=== PATIENT | female | born 1960 | race Two or more races ===

== ENCOUNTER 2018-02-09 14:08 | Inpatient (IN) | payer OTHER ==
[~2018-02-09] VITALS: Ht 162.6 cm; Wt 85.7 kg
--- NOTE | 2018-02-09 14:20 | NUR ---
AAOX3, BIB [facility]IVATE AM[facility]. PLACED ON THE MONITOR. SKIN IS WARM AND DRY. RESP IS EVEN AND UNLABORED WITH NAD NOTED. AWAITING MD FOR EVAL.
--- NOTE | 2018-02-09 14:48 | NUR ---
CALLED [facility] AND DR RENETTA CORREA WAS PAGED
[2018-02-09 14:56] LABS: BASOPHILS % (AUTO) 0.5 % (0.0-2.0); EOSINOPHILS % (AUTO) 2.8 % (0.0-6.0); HEMATOCRIT 38 % (33-45); HEMOGLOBIN 12.2 g/dL (11.5-14.8); LYMPHOCYTES # (AUTO) 2.3 /CMM (0.8-4.8); LYMPHOCYTES % (AUTO) 31.2 % (20.0-44.0); MEAN CORPUSCULAR HGB CONC 33 g/dl (31.0-36.0); MEAN CORPUSCULAR VOLUME 116 fL (82-100); MONOCYTES # (AUTO) 0.6 /CMM (0.1-1.30); MONOCYTES % (AUTO) 7.4 % (2.0-12.0); NEUTROPHILS # (AUTO) 4.4 /CMM (1.8-8.9); NEUTROPHILS % (AUTO) 58.1 % (43.0-81.0); PLATELET COUNT (AUTO) 322 /CMM (150-450); RDW COEFFICIENT OF VARIATION 14.5 (11.5-15.0); RED BLOOD CELL COUNT(AUTO) 3.24 MIL/uL (4.0-5.2); WHITE BLOOD COUNT (AUTO) 7.5 K/uL (4.3-11.0)
[2018-02-09] MEDS ORDERED: IV NS 0.9% 1,000 ML BAG IV ONE (15:00)
[2018-02-09 15:11] LABS: CALCIUM, SERUM 10.4 mg/dL (8.5-10.1); POTASSIUM 4.3 mmol/L (3.5-5.1)
[2018-02-09 15:12] LABS: CREATININE 7.9 mg/dL (0.6-1.3)
[2018-02-09] MEDS ORDERED: TRAM50TA2 PO (15:51)
[2018-02-09] MEDS ORDERED: FURO-144 PO (15:51)
[2018-02-09] MEDS ORDERED: OXYB10TA PO (15:51)
[2018-02-09] MEDS ORDERED: FOLI0.4T2 PO (15:51)
[2018-02-09] MEDS ORDERED: COMPLERA PO (15:51)
[2018-02-09] MEDS ORDERED: MULT-1094 PO (15:51)
[2018-02-09] MEDS ORDERED: ACET325T53 PO (15:51)
[2018-02-09] MEDS ORDERED: LISI10TA5 PO (15:51)
[2018-02-09] MEDS ORDERED: ALBU2.5V38 IH (15:51)
[2018-02-09] MEDS ORDERED: FLUC200T8 PO (15:51)
[2018-02-09] MEDS ORDERED: FAMO20TA8 PO (15:51)
[2018-02-09] MEDS ORDERED: ONDA4TAB5 PO (15:51)
[2018-02-09] MEDS ORDERED: ASPI-1152 PO (15:51)
[2018-02-09] MEDS ORDERED: METO50TA16 PO (15:51)
[2018-02-09] MEDS ORDERED: IPRA0.2S49 IH (15:51)
[2018-02-09] MEDS ORDERED: GABA-532 PO (15:51)
[2018-02-09 16:17] LABS: APPEARANCE,URINE CLOUDY (CLEAR); BILIRUBIN,URINE NEGATIVE (NEGATIVE); BLOOD, URINE 3+ Ery/uL (NEGATIVE); COLOR,URINE YELLOW (YELLOW); KETONES,URINE NEGATIVE (NEGATIVE); LEUKOCYTE ESTERASE ,URINE 2+ (NEGATIVE); NITRITE, URINE NEGATIVE (NEGATIVE); PROTEIN,URINE 2+ mg/dl (NEGATIVE); UGLUCOSE 1+ mg/dL (NEGATIVE); UROBILINOGEN,URINE 0.2 EU/dL (0.2)
[2018-02-09 16:20] LABS: BACTERIA,URINE 1+ /HPF (None Seen); SQUAMOUS EPITHELIAL CELL,UR Few /HPF (None Seen); WBC,URINE TOO NUMEROUS TO COUN /HPF (0-3); YEAST,URINE Rare /HPF (None Seen)
[2018-02-09] MEDS ORDERED: CEFTRIAXONE 1 G in IV D5W 50 ML IV ONE (17:00)
--- NOTE | 2018-02-09 17:10 | NUR ---
16FR LALA CATH INSERTED, TOLERATED WELL. IMMEDIATE DRAINAGE OF PURULENT YELLOW URINE TO GRAVITY.
--- NOTE | 2018-02-09 17:31 | NUR ---
CALLED NURSING TELEPHONE OPERATOR AND REQUESTED A MED SURG BED FOR THIS PT.
--- NOTE | 2018-02-09 18:12 | NUR ---
PT IS ASSIGNED TO MED SURG RM#: 306-1, DX: ACUTE RENAL FAILURE, AND ACCEPTING MD: DR SANCHEZ
--- NOTE | 2018-02-09 18:30 | NUR ---
Report given to NABEEL Anderson for [facility] MedSur 306-1
[2018-02-09] MEDS ORDERED: ONDANSETRON HCL/PF 4 MG/2 ML VIAL IVP PRN (19:00)
[2018-02-09] MEDS ORDERED: Z GUARD REMEDY 2 OZ OINT TP PRN (19:00)
[2018-02-09] MEDS ORDERED: IPRATROPIUM NEB FS 0.5 MG/2.5 ML AMPUL.NEB IH PRN (19:00)
[2018-02-09] MEDS ORDERED: TRAMADOL HCL 50 MG TABLET PO PRN (19:00)
[2018-02-09] MEDS ORDERED: ZOLPIDEM TARTRATE 5 MG TABLET PO PRN (19:00)
[2018-02-09] MEDS ORDERED: ACETAMINOPHEN 325 MG TABLET PO PRN ×2 (19:00)
--- NOTE | 2018-02-09 19:25 | NUR ---
RECEIVED PATIENT FROM ER FOR DX ACUTE RENAL FAILURE. AO X 2, ABLE TO MAKE NEEDS KNOWN. NO ACUTE DISTRESS NOTED. DENIES ANY PAIN AT THIS TIME. IV SITE PATENT, INTACT; FLUSHED. LALA CATH PATENT, INTACT; DRAINING CLOUDY URINE. SAFETY REMINDERS GIVEN. ON LOW BED WITH BILATERAL UPPER SIDE RAILS UP. CALL LEONARDO WITHIN EASY REACH. WILL CONTINUE TO MONITOR.
[2018-02-09 19:30] VITALS: BP 108/65
[2018-02-09] MEDS: GABAPENTIN 100 MG CAPSULE PO SCH (19:52)
[2018-02-09] MEDS: ASPIRIN EC 81 MG TABLET.DR PO SCH (19:52)
[2018-02-09] MEDS: FLUCONAZOLE (100 MG) 100 MG TABLET PO SCH (19:52)
[2018-02-09] MEDS: FAMOTIDINE (20 MG) 20 MG TABLET PO SCH (19:53)
[2018-02-09] MEDS: OXYBUTYNIN CHLORIDE 5 MG TABLET PO SCH (19:53)
[2018-02-09 21:00] VITALS: BP 108/65
[2018-02-09] MEDS: METOPROLOL TARTRATE 50 MG TABLET PO SCH (21:02)
[2018-02-09] MEDS: IV 1/2NS 1000 ML 1,000 ML IV PRN (21:04)
[2018-02-10 06:18] LABS: BASOPHILS % (AUTO) 0.4 % (0.0-2.0); EOSINOPHILS % (AUTO) 2.9 % (0.0-6.0); HEMATOCRIT 32 % (33-45); HEMOGLOBIN 10.3 g/dL (11.5-14.8); LYMPHOCYTES # (AUTO) 1.9 /CMM (0.8-4.8); LYMPHOCYTES % (AUTO) 34.2 % (20.0-44.0); MEAN CORPUSCULAR HGB CONC 33 g/dl (31.0-36.0); MEAN CORPUSCULAR VOLUME 115 fL (82-100); MONOCYTES # (AUTO) 0.4 /CMM (0.1-1.30); MONOCYTES % (AUTO) 6.6 % (2.0-12.0); NEUTROPHILS # (AUTO) 3.2 /CMM (1.8-8.9); NEUTROPHILS % (AUTO) 55.9 % (43.0-81.0); PLATELET COUNT (AUTO) 282 /CMM (150-450); RDW COEFFICIENT OF VARIATION 14.2 (11.5-15.0); RED BLOOD CELL COUNT(AUTO) 2.74 MIL/uL (4.0-5.2); WHITE BLOOD COUNT (AUTO) 5.7 K/uL (4.3-11.0)
[2018-02-10 06:21] LABS: ALBUMIN 2.5 g/dL (3.4-5.0); BILIRUBIN,TOTAL 0.3 mg/dL (0.2-1.0); CALCIUM, SERUM 9.5 mg/dL (8.5-10.1); CREATININE 7.3 mg/dL (0.6-1.3); PHOSPHORUS 4.5 mg/dL (2.5-4.9); POTASSIUM 3.8 mmol/L (3.5-5.1); TOTAL PROTEIN, SERUM 6.4 g/dL (6.4-8.2)
[2018-02-10 06:29] LABS: THYROID STIMULATING HORMONE 2.915 uIU/mL (0.358-3.74)
--- NOTE | 2018-02-10 06:30 | NUR ---
PATIENT ASLEEP, EASILY AROUSABLE. RESPIRATIONS EVEN. NO SIGNS OF PAIN NOTED. DUE MEDS GIVEN WITH NO ASE NOTED. NEEDS ATTENDED. KEPT CLEAN, DRY, AND COMFORTABLE. SAFETY PRECAUTIONS AND COMFORT MEASURES IN PLACE. WILL GIVE REPORT TO DAY SHIFT FOR CONTINUITY OF CARE.
--- NOTE | 2018-02-10 07:15 | NUR ---
RN NOTES PATIENT A/OX1, VERBALLY RESPONSIVE, BREATHING EVEN AND UNLABORED, NO SOB NOTED, IVF INFUSING AND TOLERATING WELL, PATIENT WITH NO S/SX OF PAIN OR DISCOMFORT NOTED, KEPT PATIENT COMFORTABLE, NEEDS ATTENDED AND MET, CALL LIGHT WITHIN REACH, WILL CONTINUE TO MONITOR.
[2018-02-10 08:00] VITALS: BP 103/74
[2018-02-10] MEDS: GABAPENTIN 100 MG CAPSULE PO SCH ×3 (08:56→16:18)
[2018-02-10] MEDS: FOLIC ACID 1 MG TABLET PO SCH (09:00)
[2018-02-10] MEDS: ASPIRIN EC 81 MG TABLET.DR PO SCH (09:00)
[2018-02-10] MEDS: FAMOTIDINE (20 MG) 20 MG TABLET PO SCH (09:00)
[2018-02-10] MEDS: FLUCONAZOLE (100 MG) 100 MG TABLET PO SCH (09:00)
[2018-02-10] MEDS: METOPROLOL TARTRATE 50 MG TABLET PO SCH (09:00)
[2018-02-10] MEDS: MULTIVIT, IRON, MIN NO. 8, FA 1 TAB PO SCH (09:00)
[2018-02-10] MEDS: OXYBUTYNIN CHLORIDE 5 MG TABLET PO SCH (09:00)
--- NOTE | 2018-02-10 10:26 | NUR ---
WOUND CARE CONSULT: PT PRESENTS WITH STAGE 3 ULCER TO SACRUM WITH SURROUNDING SCARRING, LEFT LATERAL ANKLE SCAR AND CALLUSES TO PLANTAR FEET, PRESENT ON ADMISSION. RECOMMENDATIONS MADE FOR WOUND CARE AND SKIN PROTECTION. DISCUSSED WITH NURSING STAFF. PT TO BE PLACED ON NINO ISOFLEX LOW AIRLOSS BED. WILL SEE PRN. ETIENNE IN AGREEMENT WITH PLAN OF CARE. RECOMMEND SURGICAL CONSULT. Addendum: 02/10/18 at 1027 by BRUNO MCKAY WNDNU Amended: Links added.
[2018-02-10] MEDS ORDERED: HYDROGEL DRESSING 90 GM TUBE TP PRN (10:30)
[2018-02-10] MEDS: IV 1/2NS 1000 ML 1,000 ML IV PRN (11:51)
[2018-02-10] MEDS: HYDROGEL DRESSING 90 GM TUBE TP SCH (13:29)
--- NOTE | 2018-02-10 14:00 | NUR ---
RN NOTES WOUND TREATMENT RENDERED, PERICARE PROVIDED. SKIN CARE DONE. TURNED AND REPOSITIONED EVERY 2 HOURS. BLE OFFLOADED. CALL LIGHT WITHIN REACH, WILL CONTINUE TO MONITOR.
[2018-02-10 16:00] VITALS: BP 140/78
[2018-02-10] MEDS: CEFTRIAXONE 1 G in IV D5W 50 ML IV SCH (16:18)
--- NOTE | 2018-02-10 18:32 | NUR ---
RN NOTES PATIENT A/OX1, CONFUSED, NO SIGNIFICANT CHANGE THIS SHIFT. ON IVF INFUSING AND TOLERATING WELL. TURNED AND REPOSITIONED EVERY 2 HOURS. SKIN CARE RENDERED. NEEDS ATTENDED AND MET, CALL LIGHT WITHIN REACH, WILL ENDORSE TO FLANGE TURNER FOR L[facility]ON.
[2018-02-10 20:00] VITALS: BP 111/65
--- NOTE | 2018-02-10 20:31 | NUR ---
RN OPENING NOTES RECEIVED PT IN BED, SLEEPING, RESPONSIVE TO LIGHT TOUCH AND NAME CALL. BREATHING EVEN AND UNLABORED ON RA. NO DISTRESS OR DISCOMFORT NOTED AT THE TIME. IV SITE ON R HAND PATENT AND FLUSHING, INFUSING 75ML/HR OF 1/2 NS, WILL CONTINUE TO MONITOR. BED IN LOWEST LOCKED POSITION, CALL LIGHT WITHIN REACH AT ALL TIMES
[2018-02-11] MEDS: IV 1/2NS 1000 ML 1,000 ML IV PRN ×2 (03:02→17:02)
--- NOTE | 2018-02-11 06:30 | NUR ---
PATIENT ASLEEP, EASILY AROUSABLE. RESPIRATIONS EVEN. NO SIGNS OF PAIN NOTED. IVF INFUSING ORDERED. NEEDS ATTENDED. KEPT CLEAN, DRY, AND COMFORTABLE. TURNED AND REPOSITIONED Q 2 HOURS. SAFETY PRECAUTIONS AND COMFORT MEASURES IN PLACE. WILL GIVE REPORT TO DAY SHIFT FOR CONTINUITY OF CARE.
--- NOTE | 2018-02-11 07:15 | NUR ---
MS RN OPENING NOTES RECEIVED PT IN BED, AWAKE A/OX1. BREATHING EVEN AND UNLABORED ON RA. NO DISTRESS NO S/S OF PAIN NOTED AT THIS TIME. IV SITE ON R HAND PATENT/INTACT, INFUSING 75ML/HR 1/2 NS. SAFETY PRECAUTIONS IN PLACE, CALL LIGHT WITHIN REACH . WILL CONTINUE TO MONITOR.
[2018-02-11 07:16] LABS: BASOPHILS % (AUTO) 0.7 % (0.0-2.0); EOSINOPHILS % (AUTO) 3.3 % (0.0-6.0); HEMATOCRIT 31 % (33-45); HEMOGLOBIN 10.5 g/dL (11.5-14.8); LYMPHOCYTES # (AUTO) 1.9 /CMM (0.8-4.8); LYMPHOCYTES % (AUTO) 40.1 % (20.0-44.0); MEAN CORPUSCULAR HGB CONC 34 g/dl (31.0-36.0); MEAN CORPUSCULAR VOLUME 117 fL (82-100); MONOCYTES # (AUTO) 0.3 /CMM (0.1-1.30); MONOCYTES % (AUTO) 6.6 % (2.0-12.0); NEUTROPHILS # (AUTO) 2.3 /CMM (1.8-8.9); NEUTROPHILS % (AUTO) 49.3 % (43.0-81.0); PLATELET COUNT (AUTO) 237 /CMM (150-450); RED BLOOD CELL COUNT(AUTO) 2.63 MIL/uL (4.0-5.2); WHITE BLOOD COUNT (AUTO) 4.8 K/uL (4.3-11.0)
[2018-02-11 07:24] LABS: ALBUMIN 2.5 g/dL (3.4-5.0); BILIRUBIN,TOTAL 0.3 mg/dL (0.2-1.0); CREATININE 6.5 mg/dL (0.6-1.3); MAGNESIUM 1.9 mg/dL (1.8-2.4); PHOSPHORUS 4.4 mg/dL (2.5-4.9); POTASSIUM 3.9 mmol/L (3.5-5.1); TOTAL PROTEIN, SERUM 6.3 g/dL (6.4-8.2)
[2018-02-11 07:31] LABS: CALCIUM, SERUM 9.4 mg/dL (8.5-10.1)
[2018-02-11 08:00] VITALS: BP 104/67
[2018-02-11] MEDS: GABAPENTIN 100 MG CAPSULE PO SCH ×3 (08:44→16:55)
[2018-02-11] MEDS: MULTIVIT, IRON, MIN NO. 8, FA 1 TAB PO SCH (08:44)
[2018-02-11] MEDS: FOLIC ACID 1 MG TABLET PO SCH (08:44)
[2018-02-11] MEDS: FLUCONAZOLE (100 MG) 100 MG TABLET PO SCH (08:44)
[2018-02-11] MEDS: ASPIRIN EC 81 MG TABLET.DR PO SCH (08:44)
[2018-02-11] MEDS: METOPROLOL TARTRATE 50 MG TABLET PO SCH (08:45)
[2018-02-11] MEDS: FAMOTIDINE (20 MG) 20 MG TABLET PO SCH (08:45)
[2018-02-11] MEDS: OXYBUTYNIN CHLORIDE 5 MG TABLET PO SCH (08:49)
[2018-02-11] MEDS: HYDROGEL DRESSING 90 GM TUBE TP SCH (09:00)
[2018-02-11] MEDS ORDERED: FLUCONAZOLE IN NS 100 MG in PREMIX 1 EA IV SCH ×2 (12:00)
[2018-02-11 16:00] VITALS: BP 134/80
[2018-02-11] MEDS: LACTOBACILLUS RHAMNOSUS GG 1 EACH CAP.SPRINK PO SCH (16:55)
[2018-02-11] MEDS: CEFTRIAXONE 1 G in IV D5W 50 ML IV SCH (16:55)
--- NOTE | 2018-02-11 18:52 | NUR ---
MS RN CLOSING NOTES PT IN BED, AWAKE A/OX1 CONFUSED, RESPONSIVE TO LIGHT TOUCH AND NAME. BREATHING EVEN AND UNLABORED ON RA. NO DISTRESS OR DISCOMFORT NOTED AT THE TIME. IV SITE ON R HAND REMOVED DUE TO LEAKING, LFA #22 INFUSING 75ML/HR OF 1/[address] WITH OUTPUT 1100. BED IN LOWEST LOCKED POSITION, CALL LIGHT WITHIN REACH. ALL NEEDS ATTENDED, MEDS ARE GIVEN. WILL ENDORSE TO NEXT SHIFT FOR [facility].
--- NOTE | 2018-02-11 19:20 | NUR ---
MS RN OPENING NOTES RECEIVED PT IN BED, AWAKE A/OX1, FORGETFUL/CONFUSED. BREATHING EVEN AND UNLABORED ON RA. NO DISTRESS NO S/S OF PAIN NOTED AT THIS TIME. IV SITE ON LFA, G # 22, PATENT/INTACT, INFUSING 75ML/HR 1/[address], DRAINING WITH CLEAR YELLOW COLOR URINE WITH WHITE SEDIMENTS. WILL ENCOURAGE PO INTAKE TOLERATED. BED IN LOW LOCKED POSITION, BED ALARM ON. SAFETY PRECAUTIONS IN PLACE, CALL LIGHT WITHIN REACH . WILL CONTINUE TO MONITOR.
[2018-02-11 20:01] VITALS: BP 124/53
[2018-02-11 20:12] VITALS: BP 124/53
--- NOTE | 2018-02-11 22:30 | NUR ---
MS RN NOTE PATIENT WAS ASSISTED WITH FEEDING, HAD SNACK & TOLERATED WELL. WILL MONITOR CLOSELY.
--- NOTE | 2018-02-12 01:01 | NUR ---
PRN TYLENOL GIVEN PATIENT NOTED WITH FACIAL GRIMACING DURING ADL CARE & ALSO VERBALIZED THAT HER TUMMY HURTS. UNABLE TO SCALE THE PAIN LEVEL. PRN TYLENOL GIVEN ORDERED. WILL REASSESS FOR EFFECTIVENESS.
--- NOTE | 2018-02-12 02:30 | NUR ---
MS RN NOTE PATIENT NOTED WITH LFA IV SITE LEAKING & REDNESS AROUND THE IV SITE. IV CATH REMOVED, PRESSURE DRESSING APPLIED. NEW IV CATH INSERTED TO RAC G # 22 WITH GOOD BLOOD RETURN. PROCEDURE TOLERATED WELL BY THE PATIENT. WILL CONTINUE TO MONITOR.
--- NOTE | 2018-02-12 06:34 | NUR ---
MS RN CLOSING NOTES PATIENT SLEPT INTERMITTENTLY AT NIGHT, AWAKE, A/OX1, FORGETFUL/CONFUSED. BREATHING EVEN AND UNLABORED ON RA. NO DISTRESS NO S/S OF PAIN NOTED AT THIS TIME. IV SITE ON RAC, G # 22, PATENT/INTACT, INFUSING 75ML/HR 1/[address], DRAINING WITH CLEAR YELLOW COLOR URINE WITH WHITE SEDIMENTS, TOTAL OUT PUT 810ML. ALL NEEDS MET. KEPT CLEAN & DRY. BED IN LOW LOCKED POSITION, BED ALARM ON. SAFETY PRECAUTIONS IN PLACE, CALL LIGHT WITHIN REACH . WILL ENDORSE TO AM RN.
--- NOTE | 2018-02-12 07:20 | NUR ---
MS RN NOTES PATIENT IN LYING IN BED , HOB ELEVATED, EYES CLOSED EASILY AWAKEN, RESPOND TO VERBAL AND TACTILE STIMULI. NO ACUTE DISTRESS NOTED, BREATHING UNLABORED. NO FACIAL GRIMACING NOTED. SAFETY MEASURES IN PLACE. WILL CONTINUE TO MONITOR ACCORDINGLY. CALL LIGHT WITHIN REACH.
[2018-02-12 08:00] VITALS: BP 112/77
[2018-02-12] MEDS: LACTOBACILLUS RHAMNOSUS GG 1 EACH CAP.SPRINK PO SCH ×2 (08:55→16:35)
[2018-02-12] MEDS: MULTIVIT, IRON, MIN NO. 8, FA 1 TAB PO SCH (08:55)
[2018-02-12] MEDS: ASPIRIN EC 81 MG TABLET.DR PO SCH (08:55)
[2018-02-12] MEDS: FOLIC ACID 1 MG TABLET PO SCH (08:55)
[2018-02-12] MEDS: GABAPENTIN 100 MG CAPSULE PO SCH ×3 (08:55→16:35)
[2018-02-12] MEDS: OXYBUTYNIN CHLORIDE 5 MG TABLET PO SCH (08:55)
[2018-02-12] MEDS: FAMOTIDINE (20 MG) 20 MG TABLET PO SCH (08:55)
[2018-02-12] MEDS: METOPROLOL TARTRATE 50 MG TABLET PO SCH (08:56)
[2018-02-12] MEDS: HYDROGEL DRESSING 90 GM TUBE TP SCH (08:57)
[2018-02-12 10:35] LABS: CALCIUM, SERUM 9.2 mg/dL (8.5-10.1)
[2018-02-12] MEDS: FLUCONAZOLE (100 MG) 100 MG TABLET PO SCH (12:34)
[2018-02-12] MEDS: SODIUM BICARBONATE 650 MG TABLET PO SCH ×2 (12:36→16:35)
[2018-02-12] MEDS: IV 1/2NS 1000 ML 1,000 ML IV PRN (14:44)
[2018-02-12 15:09] LABS: PTH, INTACT 8 pg/mL (15-65)
[2018-02-12 16:00] VITALS: BP 130/82
[2018-02-12] MEDS: CEFTRIAXONE 1 G in IV D5W 50 ML IV SCH (16:35)
--- NOTE | 2018-02-12 18:49 | NUR ---
MS RN NOTES PATIENT IN LYING IN BED , HOB ELEVATED, AWAKE.VERBALLY RESPONSIVE. NO ACUTE DISTRESS NOTED, BREATHING UNLABORED. DENIED ANY PAIN. SAFETY MEASURES IN PLACE. LALA CATHETER INTACT, DRAINING WELL. DUE MEDICATIONS GIVEN, NO ASE NOTED. NEEDS ATTENDED AND ANTICIPATED. WILL CONTINUE TO MONITOR ACCORDINGLY. WILL ENDORSE TO NIGHT NURSE FOR CONTINUITY OF CARE.
--- NOTE | 2018-02-12 19:15 | NUR ---
MS/RN NOTES RECEIVED PT. LYING IN BED. PT. IS AWAKE, ALERT AND ORIENTED TO SELF. BREATHING EVEN AND UNLABORED ON ROOM AIR. NO SOB, RESPIRATORY DISTRESS OR COMPLAINTS OF PAIN NOTED AT THIS TIME. PT. WITH RIGHT AC 22 GAUGE PERIPHERAL IV PRESENT, PATENT AND INTACT ADMINISTERING TO PT. 1/2 NS @ 75 ML/HR. PT. WITH LALA CATHETER PRESENT, PATENT AND INTACT DRAINING CLEAR YELLOW URINE. BED LOCKED AND IN LOWEST POSITION, SIDE RAILS UP X3, BED ALARM ON, CALL LIGHT WITHIN REACH, WILL CONTINUE TO MONITOR.
[2018-02-12 20:00] VITALS: BP 133/86
[2018-02-13] MEDS: IV 1/2NS 1000 ML 1,000 ML IV PRN (05:06)
--- NOTE | 2018-02-13 06:30 | NUR ---
MS/RN NOTES PT. IS LYING IN BED RESTING. BREATHING EVEN AND UNLABORED ON ROOM AIR. NO SOB, RESPIRATORY DISTRESS OR COMPLAINTS OF PAIN NOTED AT THIS TIME AND THROUGHOUT SHIFT. PT. WITH RIGHT AC 22 GAUGE PERIPHERAL IV PRESENT, PATENT AND INTACT ADMINISTERING TO PT. 1/2 NS @ 75 ML/HR. PT. WITH LALA CATHETER PRESENT, PATENT AND INTACT EMPTIED 1000 ML YELLOW URINE. ALL PT. NEEDS MET. PT. OFFLOADED, TURNED AND REPOSITIONED Q2H AND NEEDED. BED LOCKED AND IN LOWEST POSITION, SIDE RAILS UP X3, BED ALARM ON, CALL LIGHT WITHIN REACH, WILL ENDORSE TO DAYSHIFT NURSE FOR CONTINUITY OF CARE.
--- NOTE | 2018-02-13 07:54 | NUR ---
MS RN NOTES PATIENT RECEIVED RESTING INSIDE ROOM. AWAKE, ALERT AND ORIENTED TO SELF. PATIENT NOTED WITH CONFUSION. BREATHING EVEN AND UNLABORED. NO SOB OR ACUTE DISTRESS. PATIENT DENIES ANY PAIN OR DISCOMFORT. NO CHANGES IN LOC NOTED. REMAINS CALM AND RELAXED AT THIS TIME. LALA CATHETER IN PLACE WITH CLEAR YELLOW URINE OUTPUT NOTED ON DRAINAGE BAG. SAFETY MEASURES IN PLACE. WILL CONTINUE TO MONITOR. PATIENT RE-ORIENTED NEEDED. BED LOCKED AND IN LOW POSITION. BILATERAL UPPER SIDE RAILS UP AND LOCKED. BED ALARM ON. CALL LIGHT WITHIN EASY REACH
[2018-02-13 08:00] VITALS: BP 113/80
[2018-02-13] MEDS: FAMOTIDINE (20 MG) 20 MG TABLET PO SCH (08:33)
[2018-02-13] MEDS: LACTOBACILLUS RHAMNOSUS GG 1 EACH CAP.SPRINK PO SCH (08:33)
[2018-02-13] MEDS: FOLIC ACID 1 MG TABLET PO SCH (08:33)
[2018-02-13 08:34] VITALS: BP 113/80
[2018-02-13] MEDS: GABAPENTIN 100 MG CAPSULE PO SCH ×2 (08:34→12:08)
[2018-02-13] MEDS: OXYBUTYNIN CHLORIDE 5 MG TABLET PO SCH (08:34)
[2018-02-13] MEDS: ASPIRIN EC 81 MG TABLET.DR PO SCH (08:34)
[2018-02-13] MEDS: METOPROLOL TARTRATE 50 MG TABLET PO SCH (08:34)
[2018-02-13] MEDS: MULTIVIT, IRON, MIN NO. 8, FA 1 TAB PO SCH (08:34)
[2018-02-13] MEDS: SODIUM BICARBONATE 650 MG TABLET PO SCH (08:37)
[2018-02-13] MEDS: HYDROGEL DRESSING 90 GM TUBE TP SCH (08:38)
[2018-02-13] MEDS: FLUCONAZOLE (100 MG) 100 MG TABLET PO SCH (12:08)
--- NOTE | 2018-02-13 13:00 | NUR ---
MS RN NOTES PATIENT SEEN AND EXAMINED BY DR. SANCHEZ WITH ORDER TO DISCONTINUE LALA CATHETER. ORDER NOTED AND CARRIED OUT. PATIENT AWARE AND VERBALIZED UNDERSTANDING. LALA CATHETER REMOVED PER PROTOCOL. WILL CONTINUE TO MONITOR
--- NOTE | 2018-02-13 15:24 | NUR ---
MS RN NOTES PATIENT FOR DISCHARGE TODAY. TO DISCHARGE TO [facility]. DISCHARGE TEACHING AND EDUCATION PROVIDED TO PATIENT AND VERBALIZED UNDERSTANDING. PLACED CALL TO [facility] AND SPOKE WITH THOMAS LEES AND GAVE REPORT. ALL BELONGINGS COMPLETE ON DISCHARGE, NO REPORT OF MISSING INVENTORY. PATIENT LEFT UNIT AT 1515 IN STABLE CONDITION. BREATHING EVEN AND UNLABORED. NO SOB OR ACUTE DISTRESS. NO CHANGES IN LOC. PATIENT DENIES ANY PAIN OR DISCOMFORT. MD AWARE OF DISCHARGE.
[2018-02-14 08:07] LABS: *SPE ALBUMIN 2.7 g/dL (2.9-4.4); *SPE ALPHA-1-GLOBULIN 0.3 g/dL (0.0-0.4); *SPE ALPHA-2-GLOBULIN 0.6 g/dL (0.4-1.0); *SPE GLOBULIN, TOTAL 2.7 g/dL (2.2-3.9); *SPE M-SPIKE Not Observed g/dL (Not Observed); *SPEGAMMA GLOBULIN 0.7 g/dL (0.4-1.8)
[2018-02-22] MEDS ORDERED: AMLO10TA4 PO (08:01)
[2018-02-22] MEDS ORDERED: FLUC100T8 PO (08:01)
[2018-02-22] MEDS ORDERED: LACT1CAP72 PO (08:01)
[2018-03-03] MEDS ORDERED: IPRA0.2S9 IH (16:40)
[2018-03-03] MEDS ORDERED: FOLI1TAB16 PO (16:41)
== END 2018-02-13 15:15 | DRG 463 ==
LOC: ER 14:19 → MED 18:26
PROVIDERS: ADMIT Internal Medicine; ATTEND Internal Medicine
DX: N39.0 Urinary tract infection, site not specified (principal); N17.0 Acute kidney failure with tubular necrosis; L89.153 Pressure ulcer of sacral region, stage 3; E87.2 Acidosis; E88.09 Other disorders of plasma-protein metabolism, not elsewhere classified; J44.9 Chronic obstructive pulmonary disease, unspecified; I25.10 Atherosclerotic heart disease of native coronary artery without angina pectoris; D53.9 Nutritional anemia, unspecified; I10 Essential (primary) hypertension; K21.9 Gastro-esophageal reflux disease without esophagitis
CPT/HCPCS: 36415; 76705-TC; 76770-TC; 80048-TC; 80053-TC; 80061-TC; 81000-TC; 82550-TC; 83735-TC; 83970; 84100-TC; 84155; 84165; 84443-TC; 85025-TC; 87081-TC; 87086-TC; A4216; A4606; A6248; G0378; J0696; J1450; J3490; J7030; J7060; Z7610

== ENCOUNTER 2018-04-07 13:25 | Inpatient (IN) | payer OTHER ==
[~2018-04-07] VITALS: Ht 175.3 cm; Wt 83.9 kg
[2018-04-07] VITALS (11 sets, daily range): BP systolic 81–130; BP diastolic 40–100
[~2018-04-07 13:25] MED LIST: ACET325T53 PO; ALBU2.5V38 IH; ASPI-1152 PO; COMPLERA PO; FAMO20TA8 PO; FOLI1TAB16 PO; GABA-532 PO; IPRA0.2S9 IH; METO50TA16 PO; MULT-1094 PO; ONDA4TAB5 PO; OXYB10TA PO; TRAM50TA2 PO
[2018-04-07 14:28] LABS: ALANINE AMINOTRANSFERASE 18 U/L (12-78); ALBUMIN 3.3 g/dL (3.4-5.0); ALKALINE PHOSPHATASE 152 U/L (46-116); ASPARTATE AMINOTRANSFERASE 18 U/L (15-37); BILIRUBIN,DIRECT 0.2 mg/dL (0.0-0.2); BILIRUBIN,TOTAL 0.6 mg/dL (0.2-1.0); CALCIUM, SERUM 10.5 mg/dL (8.5-10.1); CARBON DIOXIDE 15 mmol/L (21-32); CREATININE 5.1 mg/dL (0.6-1.3); GLUCOSE 147 mg/dL (74-106); POTASSIUM 5.9 mmol/L (3.5-5.1); TOTAL PROTEIN, SERUM 8.2 g/dL (6.4-8.2)
--- NOTE | 2018-04-07 14:28 | NUR ---
BIB PRIVATE AMBULANCE FOR MORE ALTERED THAN USUAL X 3 DAYS, FEVER X TODAYRECTAL TYLENOL GIVEN AT 1130 TODAY. PT NON VERBAL, WILL OPEN EYES OCCASSIONALLY, WILL MOAN FOR PAINFUL STIMULI. PLACED ON ALLIED HEALTH TEACHER, ST. PT SEEN & EVAL'D BY DR. MORALES & WILL CONT TO MONITOR.
[2018-04-07] MEDS ORDERED: IV NS 0.9% 1,000 ML BAG IV ONE ×2 (14:30)
[2018-04-07 14:31] LABS: CHLORIDE 139 mmol/L (98-107); SODIUM SERUM 173 mmol/L (136-145); UREA NITROGEN, BLOOD 103 mg/dL (7-18)
[2018-04-07] MEDS ORDERED: NA P133E RC (14:32)
[2018-04-07] MEDS ORDERED: MEGE400O4 PO (14:32)
[2018-04-07] MEDS ORDERED: MAGN400O6 PO (14:32)
[2018-04-07] MEDS ORDERED: MAG30ORA PO (14:32)
[2018-04-07] MEDS ORDERED: POLY17PO4 PO (14:32)
[2018-04-07] MEDS ORDERED: OXYB5TAB11 PO (14:32)
[2018-04-07] MEDS ORDERED: DOCU250C14 PO (14:32)
[2018-04-07] MEDS ORDERED: POTA20TA83 PO (14:32)
--- NOTE | 2018-04-07 14:41 | NUR ---
CALLED NURSING SUP FOR ICU BED
[2018-04-07] MEDS ORDERED: IV NS 0.9% 500 ML BAG IV ONE (15:00)
[2018-04-07 15:02] LABS: BASOPHILS # (AUTO) 0.1 /CMM (0.0-0.2); BASOPHILS % (AUTO) 0.5 % (0.0-2.0); EOSINOPHILS % (AUTO) 0.2 % (0.0-6.0); HEMATOCRIT 48 % (33-45); HEMOGLOBIN 14.9 g/dL (11.5-14.8); LYMPHOCYTES # (AUTO) 4.4 /CMM (0.8-4.8); LYMPHOCYTES % (AUTO) 21.3 % (20.0-44.0); MEAN CORPUSCULAR HGB CONC 31 g/dl (31.0-36.0); MEAN CORPUSCULAR VOLUME 126 fL (82-100); MONOCYTES # (AUTO) 1.3 /CMM (0.1-1.30); MONOCYTES % (AUTO) 6.3 % (2.0-12.0); NEUTROPHILS # (AUTO) 14.8 /CMM (1.8-8.9); NEUTROPHILS % (AUTO) 71.7 % (43.0-81.0); PLATELET COUNT (AUTO) 101 /CMM (150-450); RED BLOOD CELL COUNT(AUTO) 3.83 MIL/uL (4.0-5.2); WHITE BLOOD COUNT (AUTO) 20.6 K/uL (4.3-11.0)
[2018-04-07 15:18] LABS: SERUM AMMONIA 17 umol/L (11-32)
[2018-04-07 15:28] LABS: LYMPHOCYTES % (MANUAL) 24 % (16-48); MONOCYTES % (MANUAL) 8 % (0-11.0); NEUTROPHILS % (MANUAL) 68 (42-76)
--- NOTE | 2018-04-07 15:50 | NUR ---
CALLED [facility] [employer] PHYSICIAN OFFICE SPECIALIST WAS PAGED.
[2018-04-07] MEDS ORDERED: MEROPENEM 1 G in IV NS 0.9% 100 ML IV ONE (16:00)
[2018-04-07] MEDS ORDERED: VANCOMYCIN 1 GM in IV D5W 250 ML IV ONE (16:00)
[2018-04-07] MEDS ORDERED: SODIUM BICARBONATE SYR 50 MEQ/50 ML DISP.SYRIN IV ONE (16:00)
[2018-04-07] MEDS ORDERED: CEFTRIAXONE 2 G in IV D5W 100 ML IV ONE (16:00)
[2018-04-07] MEDS ORDERED: SODIUM BICARBONATE SYR 50 MEQ/50 ML DISP.SYRIN ONE (16:06)
[2018-04-07] MEDS ORDERED: IV D5/0.45 NACL 1,000 ML IV PRN (16:36)
--- NOTE | 2018-04-07 16:46 | NUR ---
PT BACK FROM CT. PT STABLE, NAD NOTED @ THIS TIME. PLACED ON SERGEANT AT ARMS & WILL CONT TO MONITOR. IV ANTIBIOTIC STARTED, PT YUNIEL WELL.
[2018-04-07] MEDS ORDERED: MAG HYDROX/AL HYDROX/SIMETH 30 ML UDC PO PRN (17:00)
[2018-04-07] MEDS ORDERED: Z GUARD REMEDY 2 OZ OINT TP PRN (17:00)
[2018-04-07] MEDS ORDERED: MAGNESIUM HYDROXIDE 30 ML UDC PO PRN (17:00)
[2018-04-07] MEDS ORDERED: IV D5/0.45 NACL 1,000 ML IV ONE (17:00)
[2018-04-07] MEDS ORDERED: ONDANSETRON HCL/PF 4 MG/2 ML VIAL IVP PRN (17:00)
[2018-04-07] MEDS ORDERED: ACETAMINOPHEN 325 MG TABLET PO PRN (17:00)
[2018-04-07] MEDS ORDERED: ZOLPIDEM TARTRATE 5 MG TABLET PO PRN (17:00)
[2018-04-07] MEDS ORDERED: FEE PK DOSING 1 MIN EA MC ONE (17:04)
[2018-04-07 17:32] LABS: APPEARANCE,URINE Clear (CLEAR); BILIRUBIN,URINE SMALL (NEGATIVE); BLOOD, URINE Large Ery/uL (NEGATIVE); COLOR,URINE Yellow (YELLOW); KETONES,URINE Trace (NEGATIVE); LEUKOCYTE ESTERASE ,URINE Trace (NEGATIVE); NITRITE, URINE Negative (NEGATIVE); PH,URINE 5.5 (5.0-8.0); PROTEIN,URINE >=300 mg/dl (NEGATIVE); UGLUCOSE 100 MG/DL mg/dL (NEGATIVE); UROBILINOGEN,URINE 0.2 EU/dL (0.2)
[2018-04-07 17:49] LABS: BACTERIA,URINE Few /HPF (None Seen); RBC,URINE 21-50 /HPF (0-2); SQUAMOUS EPITHELIAL CELL,UR Few /HPF (None Seen)
--- NOTE | 2018-04-07 17:53 | NUR ---
REPORT GIVEN TO NABEEL PARRA @ ICU FOR CONT OF CARE.
[2018-04-07] MEDS ORDERED: VANCOMYCIN 0.75 GM in IV D5W 250 ML IV SCH (18:00)
--- NOTE | 2018-04-07 18:20 | NUR ---
TRADE CLERK RECEIVED PT FROM ER VIA MONITORED GURNEY. PT ADMITTED FOR HYPERNATREMIA AND SEVERE SEPSIS. PT MOANS, UNABLE TO COMMUNICATE FURTHER. NO FAMILY AVAILABLE FOR HISTORY. O2 AT 4L NC WITH SPO2 100%. UNABLE TO START 2ND IV LINE, WILL ORDER FOR PICC.
[2018-04-07 20:35] LABS: CREATININE 4.8 mg/dL (0.6-1.3); POTASSIUM 3.9 mmol/L (3.5-5.1)
[2018-04-07] MEDS: HEPARIN SODIUM, PORCINE 5000 UNITS/1 ML VIAL SQ SCH (21:00)
--- NOTE | 2018-04-07 21:17 | NUR ---
SHREDDING MACHINE KNIFE CHANGER. INITIAL ASSESSMENT, RECEIVED THE PT REST ON THE BED. OPEN EYES, DOES NOT FOLLOW COMMANDS. RESPONDING PAIN AND CALLING NAME. ELIOT LOWER AND UPPER EXTREMITIES FLACCID ELIOT PUPILS EQUAL . OXYGEN 3L VIA NASAL CANNULA. SAT 99%. NO ACUTE DISTRESS NOTED. VEHICLE MAINTENANCE TECHNICIAN SHOWING S TACH. WOUND PICTURE TAKEN AND ATTACHED TO THE CHART. FC PATENT. URINE COLOR IS RED. HOB ELEVATED. RT UPPER ARM MID LINE . IVF D51/2NS 100ML/H.WILL CONTINUE TO MONITOR VITALS.
--- NOTE | 2018-04-07 22:37 | NUR ---
PIEROGI MAKER. HEPARIN 5,000 UNITS 2100 NOT GIVEN. PT PTT IS >170
[2018-04-08] VITALS (66 sets, daily range): BP systolic 62–188; BP diastolic 27–97
--- NOTE | 2018-04-08 04:17 | NUR ---
INTERNATIONAL CONTROLLER.AM CARE, ORAL CARE, BED BATH GIVEN. LINEN CHANGED. REMAINING SAME OXYGEN TOLERATED WELL. SAT 99%NO ACUTE DISTRESS NOTED. TEXTILE ARTIST SHOWING S CARMEN.HOB ELEVATED. PT IS NPO. IV RT UPPER ARM MID LINE. SALINE LOCK.AFEBRILE. FC PATENT. WILL CONTINUE TO MONITOR VITALS.
[2018-04-08 04:49] LABS: BASOPHILS # (AUTO) 0.1 /CMM (0.0-0.2); BASOPHILS % (AUTO) 0.4 % (0.0-2.0); EOSINOPHILS % (AUTO) 1.5 % (0.0-6.0); HEMATOCRIT 38 % (33-45); HEMOGLOBIN 11.8 g/dL (11.5-14.8); LYMPHOCYTES # (AUTO) 2.3 /CMM (0.8-4.8); LYMPHOCYTES % (AUTO) 16.4 % (20.0-44.0); MEAN CORPUSCULAR HGB CONC 31 g/dl (31.0-36.0); MEAN CORPUSCULAR VOLUME 126 fL (82-100); MONOCYTES # (AUTO) 0.6 /CMM (0.1-1.30); MONOCYTES % (AUTO) 4.6 % (2.0-12.0); NEUTROPHILS # (AUTO) 10.7 /CMM (1.8-8.9); NEUTROPHILS % (AUTO) 77.1 % (43.0-81.0); PLATELET COUNT (AUTO) 73 /CMM (150-450); RED BLOOD CELL COUNT(AUTO) 3.02 MIL/uL (4.0-5.2); WHITE BLOOD COUNT (AUTO) 13.8 K/uL (4.3-11.0)
[2018-04-08 05:12] LABS: ALBUMIN 2.4 g/dL (3.4-5.0); BILIRUBIN,TOTAL 0.3 mg/dL (0.2-1.0); CREATININE 4.9 mg/dL (0.6-1.3); MAGNESIUM 2.7 mg/dL (1.8-2.4); POTASSIUM 4.1 mmol/L (3.5-5.1); TOTAL PROTEIN, SERUM 6.4 g/dL (6.4-8.2)
[2018-04-08 05:14] LABS: MONOCYTES % (MANUAL) 2 % (0-11.0)
[2018-04-08 05:15] LABS: EOSINOPHILS % (MANUAL) 1 % (0-4)
[2018-04-08 05:17] LABS: LYMPHOCYTES % (MANUAL) 14 % (16-48); NEUTROPHILS % (MANUAL) 83 (42-76)
--- NOTE | 2018-04-08 06:17 | NUR ---
STILL OPERATOR BRANDY, PT MORE ALTERED THAN BEFORE ABG DONE STAT. WILL CONTINUE TO MONITOR
[2018-04-08] MEDS ORDERED: IV D5/0.45 NACL 1,000 ML IV ONE (06:30)
[2018-04-08 06:38] LABS: ABG BASE EXCESS -13.9 mmol/L; ABG OXYGEN SATURATION 95.8 % (92.0-98.5); ABG PCO2 23.2 mmHg (35.0-45.0); ABG PH 7.288 (7.350-7.450); ABG PO2 88.4 mmHg (75.0-100.0); AaDO2 141.4 mmHg; COHb 0.3 % (0.5-1.5); MetHb 0.6 % (0.0-1.5); O2Hb 94.9 % (94.0-97.0); SITE, ABG Right Radial; VENT MODE, BG Nasal Cannula
--- NOTE | 2018-04-08 06:48 | NUR ---
CNP. G DONE RESULT PELON LEMA MADE AWARE. ORDER ONLY NONREBREATHER . WILL CONTINUE TO MONITOR.
[2018-04-08] MEDS: IV D5/0.45 NACL 1,000 ML IV PRN ×4 (07:20→23:48)
[2018-04-08] MEDS: HYDROCORTISONE SOD SUCCINATE 100 MG/2 ML VIAL IV SCH ×3 (08:07→16:04)
[2018-04-08] MEDS: HEPARIN SODIUM, PORCINE 5000 UNITS/1 ML VIAL SQ SCH ×2 (08:08→21:00)
--- NOTE | 2018-04-08 08:24 | NUR ---
WOUND CARE CONSULT: PT UNSTABLE FOR TURNING/SKIN ASSESSMENT AT THIS TIME. FEET HAVE VERY DUSKY COLOR. RECOMMENDATIONS MADE FOR SKIN PROTECTION AND DISCUSSED WITH NURSING STAFF. FIRST STEP LOW AIRLOSS MATTRESS ORDERED. WILL SEE PT PT CONDITION PERMITS. LALA CATH NOTED. CURRENT RUFINO SCORE IS 11.
[2018-04-08 11:06] LABS: CALCIUM, SERUM 9.2 mg/dL (8.5-10.1); POTASSIUM 4.4 mmol/L (3.5-5.1)
--- NOTE | 2018-04-08 11:25 | NUR ---
RN NOTE 0720: Received patient obtunded, noted with grimace only for deep pain. S/E by Dr. Grimm. MICHAEL midline intact. Pupils PERRLA 4mm. Flaccid all extremities. Gonzalze cath intact, noted with akhil colored urine with sediments. 0840: S/E by Dr. Becerra, reviewed ABG, with order to do repeat ABG at 1200. 0850: hearing aid technician at bedside, said she will call Dr. Grimm for reading. 0930: S/E by Dr. Suárez, obtained consent for HD cath insertion from Nataly, mother. Made MD aware, with consent already. 1000: S/E by Joshua LEMA with order for LP and platelet transfusion before LP, spoke with Nataly mother and agreed. Also ordered for EEG. 1030: Spoke with blood bank and changed the order to Stat for Plt. Spoke with radio and informed them I changed blood order to stat for radiologist trying to do it today. 1120: metallurgical lab technician at bedside.
[2018-04-08 12:41] LABS: ABG BASE EXCESS -14.6 mmol/L; ABG OXYGEN SATURATION 97.4 % (92.0-98.5); ABG PCO2 22.6 mmHg (35.0-45.0); ABG PH 7.277 (7.350-7.450); ABG PO2 126.3 mmHg (75.0-100.0); COHb 0.3 % (0.5-1.5); MetHb 0.6 % (0.0-1.5); O2Hb 96.5 % (94.0-97.0); SITE, ABG Right Brachial; VENT MODE, BG Nasal Cannula
[2018-04-08] MEDS ORDERED: NOREPINEPHRINE 16 MG in IV D5W 500 ML IV PRN ×2 (14:00→14:30)
--- NOTE | 2018-04-08 14:11 | NUR ---
RN NOTE 1300: HD cath placed by Dr. Bedolla to right fem. 1330: Spoke with blood bank, plt still not available. Spoke with Dr. Curry, said plt is low, said its ok to give platelet after procedure, so after HD, will bring patient down for the procedure. 1410: HD ongoing, with episodes of SBP 70's even after albumin given, obtained order for Levo.
[2018-04-08] MEDS ORDERED: ALBUMIN 25% 25 GM in PREMIX 1 EA IV ONE (14:30)
--- NOTE | 2018-04-08 15:22 | NUR ---
RN NOTE Platelet given with HD by HD nurse. BP dropped 80/44, informed Radio, said to inform Neuro. Spoke with Moses LEMA and said do LP tomorrow instead if able to wean off pressors, if not, ok to do Wednesday. Called Dr. Curry and informed him, verbalized understanding.
[2018-04-08] MEDS ORDERED: CEFTRIAXONE 1 G in IV D5W 50 ML IV SCH (16:00)
[2018-04-08] MEDS: LACTOBACILLUS RHAMNOSUS GG 1 EACH CAP.SPRINK PO SCH (16:03)
--- NOTE | 2018-04-08 17:23 | NUR ---
Patient is a resident of [facility] [phone]. Prior to admission, he was chair and bed bound and requires mod-max assist with adl's. Started on hemodialysis today, we will monitor if outpt HD set-up needed prior discharge. Current dc plan is to return to SNF Addendum: 04/08/18 at 1724 by JAZIEL PEREZ RN Amended: Links added.
[2018-04-08] MEDS: CEFEPIME 1 GM in IV D5W 50 ML IV SCH (18:35)
--- NOTE | 2018-04-08 19:00 | NUR ---
ICU/RN RECEIVED PT OBTUNDED,UNRESPONSIVE TO VERBAL AND TACTILE STIM.ON 4LNC SAT.OF 97%.HOB 35 DEGREES.SUCTIONED FOR COPIOUS AMT BLOOD-TINGED SECRETIONS ORALLY,WITH COUGH AND GAG REFLEXES..
--- NOTE | 2018-04-08 21:04 | NUR ---
RT NOTE NT SX PERFORMED WITH NO COMPLICATIONS. NABEEL GILL NOTIFIED AND AWARE.
[2018-04-09] VITALS (48 sets, daily range): BP systolic 54–138; BP diastolic 11–104
[2018-04-09 05:14] LABS: BASOPHILS % (AUTO) 0.2 % (0.0-2.0); HEMATOCRIT 28 % (33-45); HEMOGLOBIN 9.2 g/dL (11.5-14.8); LYMPHOCYTES % (AUTO) 15.4 % (20.0-44.0); MEAN CORPUSCULAR HGB CONC 32 g/dl (31.0-36.0); MEAN CORPUSCULAR VOLUME 118 fL (82-100); MONOCYTES # (AUTO) 0.6 /CMM (0.1-1.30); MONOCYTES % (AUTO) 4.8 % (2.0-12.0); NEUTROPHILS # (AUTO) 10.5 /CMM (1.8-8.9); NEUTROPHILS % (AUTO) 79.6 % (43.0-81.0); PLATELET COUNT (AUTO) 75 /CMM (150-450); WHITE BLOOD COUNT (AUTO) 13.2 K/uL (4.3-11.0)
[2018-04-09 05:29] LABS: ALBUMIN 2.9 g/dL (3.4-5.0); BILIRUBIN,TOTAL 0.4 mg/dL (0.2-1.0); CALCIUM, SERUM 7.8 mg/dL (8.5-10.1); CREATININE 3.2 mg/dL (0.6-1.3); MAGNESIUM 1.8 mg/dL (1.8-2.4); PHOSPHORUS 2.2 mg/dL (2.5-4.9); POTASSIUM 3.4 mmol/L (3.5-5.1); TOTAL PROTEIN, SERUM 6.4 g/dL (6.4-8.2)
--- NOTE | 2018-04-09 06:00 | NUR ---
ICU/RN PT NEEDED FREQUENT SUCTIONING ORAL AND NASOTRACHEALLY FOR COPIOUS AMT OF PINK-TINGED.VITAL SIGNS STABLE.LEVOPHED DC'D AT 0100
[2018-04-09 06:18] LABS: BAND % (MANUAL) 3 % (0.0-5.0); LYMPHOCYTES % (MANUAL) 17 % (16-48); METAMYELOCYTES % 1 % (0-0); MONOCYTES % (MANUAL) 2 % (0-11.0); MYELOCYTES % 1 % (0-0); NEUTROPHILS % (MANUAL) 73 (42-76); REACTIVE LYMPHOCYTES 3 % (0-0)
[2018-04-09] MEDS: IV D5/0.45 NACL 1,000 ML IV PRN (07:12)
--- NOTE | 2018-04-09 07:15 | NUR ---
ICU/RN REPORT AND CARE OF PT GIVEN TO FIDEL English
[2018-04-09] MEDS: POTASSIUM CL. PREMIX PERIPHER. 50 ML IV SCH ×4 (07:51→10:50)
[2018-04-09 08:25] LABS: BILIRUBIN,DIRECT 0.1 mg/dL (0.0-0.2)
[2018-04-09] MEDS ORDERED: VANCOMYCIN 500 MG in IV D5W 100 ML IV PRN (08:30)
[2018-04-09] MEDS: LACTOBACILLUS RHAMNOSUS GG 1 EACH CAP.SPRINK PO SCH ×2 (08:32→17:00)
[2018-04-09] MEDS: HYDROCORTISONE SOD SUCCINATE 100 MG/2 ML VIAL IV SCH ×3 (08:32→17:20)
[2018-04-09] MEDS: HEPARIN SODIUM, PORCINE 5000 UNITS/1 ML VIAL SQ SCH ×2 (08:33→20:49)
--- NOTE | 2018-04-09 09:26 | NUR ---
received pt from night supervisor, lethargic/obtunded, opens eyes at times, responds to pain stimuli, SR, off of levo, NPO, on 4L 02 sat well, lungs partially congested, no edema, f/c low output, having HD right now, v/s stable, no pain, pt turned and repositioned.
[2018-04-09] MEDS: IV NS 0.9% 1,000 ML IV PRN ×2 (10:53→21:15)
[2018-04-09] MEDS ORDERED: K PHOS NEUTRAL 250 MG TABLET PO ONE (11:00)
[2018-04-09] MEDS ORDERED: VANCOMYCIN 1 GM in IV D5W 250 ML IV ONE (14:00)
--- NOTE | 2018-04-09 16:47 | NUR ---
pt is resting in the bed, obtunded, SR, on 4L 02 sat well, v/s stable, no pain, HD done, pt cleaned, changed and repositioned q2hrs.
[2018-04-09] MEDS: CEFEPIME 1 GM in IV D5W 50 ML IV SCH (17:21)
[2018-04-09] MEDS ORDERED: VANCOMYCIN 0.75 GM in IV D5W 250 ML IV SCH (18:00)
--- NOTE | 2018-04-09 19:00 | NUR ---
ICU/RN RECEIVED PT.UNRESPONSIVE TO VERBAL STIMULI,PT.GURGLING,SUCTIONED FOR MODERATE AMT BLOOD-TINGED TO THICK YELLOW SECRETIONS,RESP.RATE PRIOR TO SUCTIONING=40/MIN W/SAT OF 87%.RESP.RATE DOWN TO 28 AND SAT UP TO 97%.HOB AT 35 DEGREES.
[2018-04-10] VITALS (35 sets, daily range): BP systolic 80–136; BP diastolic 49–93
--- NOTE | 2018-04-10 01:14 | NUR ---
ICU/RN N-T. SUCTIONED FOR COPIOUS SECRETIONS.REPOSITIONED TO LT SIDE AFTER.SUCTIONED ORALLY FOR MODERATE WHITE TO PINK-TINGED SECRETIONS,ORAL CARE DONE.
--- NOTE | 2018-04-10 02:10 | NUR ---
ICU/RN. INCONTINENT OF LARGE SOFT YELLOWISH GREEN STOOLX2,COMPLETE BED BATH GIVEN.VOMITED APPROXIMATELY 50ML YELLOW LIQUID MATERIAL POST BATH.CHUX PLACED UNDERNEATH HEAD.
[2018-04-10 04:45] LABS: BASOPHILS % (AUTO) 0.1 % (0.0-2.0); HEMATOCRIT 28 % (33-45); HEMOGLOBIN 9.1 g/dL (11.5-14.8); LYMPHOCYTES # (AUTO) 1.4 /CMM (0.8-4.8); LYMPHOCYTES % (AUTO) 12.9 % (20.0-44.0); MEAN CORPUSCULAR HGB CONC 33 g/dl (31.0-36.0); MEAN CORPUSCULAR VOLUME 116 fL (82-100); MONOCYTES # (AUTO) 0.6 /CMM (0.1-1.30); MONOCYTES % (AUTO) 5.5 % (2.0-12.0); NEUTROPHILS # (AUTO) 8.6 /CMM (1.8-8.9); NEUTROPHILS % (AUTO) 81.5 % (43.0-81.0); PLATELET COUNT (AUTO) 71 /CMM (150-450); RED BLOOD CELL COUNT(AUTO) 2.36 MIL/uL (4.0-5.2); WHITE BLOOD COUNT (AUTO) 10.5 K/uL (4.3-11.0)
[2018-04-10 04:47] LABS: ALBUMIN 2.6 g/dL (3.4-5.0); BILIRUBIN,TOTAL 0.7 mg/dL (0.2-1.0); CALCIUM, SERUM 7.4 mg/dL (8.5-10.1); CREATININE 2.3 mg/dL (0.6-1.3); MAGNESIUM 1.7 mg/dL (1.8-2.4); PHOSPHORUS 3.2 mg/dL (2.5-4.9); POTASSIUM 3.3 mmol/L (3.5-5.1)
[2018-04-10] MEDS: IV NS 0.9% 1,000 ML IV PRN ×2 (05:51→16:52)
[2018-04-10] MEDS ORDERED: VANCOMYCIN 500 MG in IV D5W 100 ML IV PRN (06:00)
--- NOTE | 2018-04-10 06:37 | NUR ---
ICU/RN OPENS EYES ,DOES NOT TRACK,DOES NOT FOLLOW COMMANDS.SUCTIONED FOR MODERATE WHIT-YELLOW SECRETIONS FROM MOUTH.
--- NOTE | 2018-04-10 07:24 | NUR ---
ICU/RN REPORT AND CARE OF PT GIVEN TO PAMELA
--- NOTE | 2018-04-10 07:30 | NUR ---
RN NOTES PATIENT RECEIVED, RESPONSIVE TO PAINFUL STIMULI, NON VERBAL, DOES NOT FOLLOW COMMANDS MAKES INCOMPREHENSIBLE SOUNDS. RESPIRATIONS EVEN AND UNLABORED, IN NO RESPIRATORY DISTRESS. NO SIGNS OR SYMPTOMS OF PAIN NOTED AT THIS TIME. LALA CATHETER DRAINING CLEAR YELLOW URINE. MICHAEL PICC LINE PATENT AND INTACT NO REDNESS OR INFILTRATION NOTED. RIGHT FEMORAL CATHETER IN PLACE PATENT AND INTACT NO REDNESS OR INFILTRATION NOTED. KEPT CLEAN DRY AND COMFORTABLE CALL LIGHT WITHIN EASY REACH, WILL CONTINUE TO MONITOR
[2018-04-10] MEDS: LACTOBACILLUS RHAMNOSUS GG 1 EACH CAP.SPRINK PO SCH ×2 (09:00→16:57)
[2018-04-10] MEDS ORDERED: POTASSIUM PHOSPHATE MM 15 MMOL in IV D5W 250 ML IV SCH (09:00)
[2018-04-10 09:07] LABS: ABG BASE EXCESS -3.6 mmol/L; ABG OXYGEN SATURATION 96.8 % (92.0-98.5); ABG PCO2 27.7 mmHg (35.0-45.0); ABG PH 7.461 (7.350-7.450); ABG PO2 97.6 mmHg (75.0-100.0); COHb 0.3 % (0.5-1.5); MetHb 0.5 % (0.0-1.5); SITE, ABG Left Radial; VENT MODE, BG 3L NC
[2018-04-10] MEDS: POTASSIUM CL. PREMIX PERIPHER. 50 ML IV SCH ×4 (09:08→12:44)
[2018-04-10] MEDS: Magnesium 1GM/D5W 100ML PREMIX 100 ML IV SCH ×2 (09:08→10:13)
[2018-04-10] MEDS: HYDROCORTISONE SOD SUCCINATE 100 MG/2 ML VIAL IV SCH ×3 (09:09→16:51)
[2018-04-10] MEDS: HEPARIN SODIUM, PORCINE 5000 UNITS/1 ML VIAL SQ SCH ×2 (09:22→20:51)
[2018-04-10] MEDS ORDERED: POTASSIUM PHOSPHATE MM 7.5 MMOL in IV D5W 100 ML IV SCH (09:30)
--- NOTE | 2018-04-10 10:30 | NUR ---
RN NOTES [address] ORTIZ WITH NEW ORDERS WILL CARRY OUT 0850 PATIENT SEEN AND EXAMINED BY DR. MICHAELS PER MD LINDQUIST TO GIVE HEPARIN PLATELET LEVEL REPORTED, CLARIFIED ELECTROLYTE REPLACEMENT ORDERS 1015 PATIENT SEEN AND EXAMINED BY DR. SHELLEY REVIEWED PLAN OF CARE PER DR DAPHNEY LINDQUIST TO TRANSFER TO [facility] WILL CONTINUE TO FOLLOW UP. DR. SHELLEY WITH WOUND CARE CONSULT PT WITH DARKENED COLOR TO MULTIPLE TOES NOT BLANCHABLE TO BE ASSESSED BY WOUND CARE
[2018-04-10] MEDS: POTASSIUM PHOSPHATE MM 7.5 MMOL in IV D5W 100 ML IV SCH ×2 (15:06→17:56)
[2018-04-10] MEDS: CEFEPIME 1 GM in IV D5W 50 ML IV SCH (17:56)
--- NOTE | 2018-04-10 18:30 | NUR ---
TELE TRANSFER FROM ICU REPORT RECEIVED FROM PAMELA LEES. PT TRANSFERRED VIA BED ON INCIDENT RESPONSE ANALYST AND PORTABLE 02. ALL PATIENT MEDICATIONS AND PERSONAL BELONGINGS TRANSFERRED WITH PATIENT TO RECEIVING FLOOR.
--- NOTE | 2018-04-10 18:40 | NUR ---
GEOPHYSICAL PROSPECTOR NOTES PATIENT WITH ORDERS TO TRANSFER TO TELE DEPARTMENT RM 114-1 RESPONSIVE TO PAINFUL STIMULI, NON VERBAL, DOES NOT FOLLOW COMMANDS MAKES INCOMPREHENSIBLE SOUNDS. RESPIRATIONS EVEN AND UNLABORED, IN NO RESPIRATORY DISTRESS. NO SIGNS OR SYMPTOMS OF PAIN NOTED AT THIS TIME. LALA CATHETER DRAINING CLEAR YELLOW URINE. MICHAEL PICC LINE PATENT AND INTACT NO REDNESS OR INFILTRATION NOTED. RIGHT FEMORAL CATHETER IN PLACE PATENT AND INTACT NO REDNESS OR INFILTRATION NOTED. KEPT CLEAN DRY AND COMFORTABLE CALL LIGHT WITHIN EASY REACH. TRANSPORTED VIA ACLS PROTOCOL, REPORT GIVEN TO RECEIVING RN FOR CONTINUITY OF CARE
--- NOTE | 2018-04-10 19:30 | NUR ---
RN INITIAL SHIFT NOTES RECEIVED PATIENT IN BED, AWAKE, EYES OPEN, NONVERBAL, SOMETIMES TRACKS, UNABLE TO FOLLOW COMMANDS. BREATHING EVEN AND NONLABORED WHILE ON O2 VIA NC @ 4LPM, TOLERATING WELL, FREE FROM ANY S/S OF RESPIRATORY DISTRESS. ON TELEMETRY MONITORING, SHOWING SINUS RHYTHM, HR 80s AT THIS TIME. MICHAEL PICC PATENT AND INTACT, FLUSHED WITH NS, NOTED WITH GOOD VENOUS RETURN, IV FLUIDS INFUSING PRESCRIBED. LALA CATHETER PATENT AND INTACT, DRAINING CLOUDY YELLOW URINE WITH SEDIMENTS VIA GRAVITY. BED IN LOWEST AND LOCKED POSITION, HOB KEPT ELEVATED FOR ASPIRATION PRECAUTIONS, REMAINS NPO. WILL CONTINUE TO CLOSELY MONITOR THE PATIENT.
--- NOTE | 2018-04-10 20:52 | NUR ---
DEPOSITION OPERATOR NOTES PATIENT WITH ORDER FOR LUMBAR PUNCTURE TO R/O MENINGITIS, WITH ORDERS FOR HEPARIN SQ. PELON BERRIOS NP MADE AWARE THAT TIME FOR PROCEDURE IS UNKNOWN, POSSIBLY TOMORROW 04/11/18. PELON BERRIOS GROCERY STOCK CLERK WITH ORDER TO HOLD DOSE. WILL CONTINUE TO CLOSELY MONITOR THE PATIENT
[2018-04-11] VITALS: BP 126/79
[2018-04-11] MEDS: IV NS 0.9% 1,000 ML IV PRN ×2 (01:26→13:34)
[2018-04-11 04:00] VITALS: BP 145/81
[2018-04-11 07:31] LABS: BASOPHILS % (AUTO) 0.1 % (0.0-2.0); HEMATOCRIT 28 % (33-45); HEMOGLOBIN 9.1 g/dL (11.5-14.8); LYMPHOCYTES # (AUTO) 1.5 /CMM (0.8-4.8); LYMPHOCYTES % (AUTO) 15.1 % (20.0-44.0); MEAN CORPUSCULAR HGB CONC 33 g/dl (31.0-36.0); MEAN CORPUSCULAR VOLUME 116 fL (82-100); MONOCYTES # (AUTO) 0.6 /CMM (0.1-1.30); MONOCYTES % (AUTO) 6.3 % (2.0-12.0); NEUTROPHILS # (AUTO) 7.7 /CMM (1.8-8.9); NEUTROPHILS % (AUTO) 78.5 % (43.0-81.0); PLATELET COUNT (AUTO) 82 /CMM (150-450); RED BLOOD CELL COUNT(AUTO) 2.36 MIL/uL (4.0-5.2); WHITE BLOOD COUNT (AUTO) 9.8 K/uL (4.3-11.0)
[2018-04-11 08:00] VITALS: BP 137/88
--- NOTE | 2018-04-11 08:07 | NUR ---
WOUND CARE CONSULT: PT PRESENTS WITH SACRAL SCARRING WHICH EXTENDS TO BUTTOCKS, BRUISING TO FACE, NECK AND POSTERIOR THIGHS AND DUSKY COLOR TO FEET WITH SOME CALLUSES, ALL PRESENT ON ADMISSION. RECOMMENDATIONS MADE FOR SKIN PROTECTION AND CARE. DISCUSSED WITH NURSING STAFF. LOW AIRLOSS MATTRESS ON ORDER. CURRENT RUFINO SCORE IS 11. PT INCONTINENT OF LOOSE STOOL. MD IN AGREEMENT WITH PLAN OF CARE. DAI HERBERT. Addendum: 04/11/18 at 0808 by BRUNO MCKAY WNDNU Amended: Links added.
[2018-04-11 08:09] LABS: CREATININE 2.8 mg/dL (0.6-1.3); MAGNESIUM 2.3 mg/dL (1.8-2.4); PHOSPHORUS 4.9 mg/dL (2.5-4.9); POTASSIUM 3.6 mmol/L (3.5-5.1)
[2018-04-11] MEDS: HEPARIN SODIUM, PORCINE 5000 UNITS/1 ML VIAL SQ SCH ×2 (09:00→21:00)
[2018-04-11] MEDS: LACTOBACILLUS RHAMNOSUS GG 1 EACH CAP.SPRINK PO SCH ×2 (09:00→17:00)
[2018-04-11 09:11] LABS: BAND % (MANUAL) 1 % (0.0-5.0); LYMPHOCYTES % (MANUAL) 10 % (16-48); MONOCYTES % (MANUAL) 4 % (0-11.0); NEUTROPHILS % (MANUAL) 81 (42-76)
[2018-04-11 09:12] LABS: METAMYELOCYTES % 3 % (0-0); MYELOCYTES % 1 % (0-0)
[2018-04-11 10:15] LABS: *% CD 4 POS. LYMPH 32.9 % (30.8-58.5); *% CD 8 POS. LYMPH 30.5 % (12.0-35.5); *CD4/CD8 RATIO 1.08 (0.92-3.72)
[2018-04-11 11:15] LABS: *ABSOLUTE CD 4 HELPER 66 /uL (359-1519); *ABSOLUTE CD 8 SUPPRESSOR 61 /uL (109-897); *BASOS 0 % (Not Estab.); *COMMENTS Note: (.); *EOS 0 % (Not Estab.); *HCT 26.6 % (34.0-46.6); *LYMPHOCYTES 2 % (Not Estab.); *LYMPHS, ABSOLUTE 0.2 x10E3/uL (0.7-3.1); *MCH 37.2 pg (26.6-33.0); *MCHC 33.8 g/dL (31.5-35.7); *MCV 110 fL (79-97); *MONOCYTES 2 % (Not Estab.); *MONOS, ABSOLUTE 0.2 x10E3/uL (0.1-0.9); *NEUTROPHILS 88 % (Not Estab.); *NEUTROPHILS, ABSOLUTE 9.6 x10E3/uL (1.4-7.0); *PLT 92 x10E3/uL (150-379); *RBC 2.42 x10E6/uL (3.77-5.28); *RDW 12.8 % (12.3-15.4)
--- NOTE | 2018-04-11 11:58 | NUR ---
FOLDER SEAMER AUTOMATIC NOTE HEPARIN SQ HELD DUE TO PATIENT HAVING LUMBAR PUNCTURE LATER THIS AFTERNOON.
[2018-04-11 12:00] VITALS: BP 129/84
[2018-04-11] MEDS: HYDROCORTISONE SOD SUCCINATE 100 MG/2 ML VIAL IV SCH ×3 (12:03→18:54)
[2018-04-11] MEDS ORDERED: SULFAMETH/TRIMETH 800/160 MG 1 UDTAB TABLET PO SCH (12:30)
[2018-04-11] MEDS ORDERED: CEFTRIAXONE 2 G in IV D5W 50 ML IV SCH (12:30)
[2018-04-11] MEDS ORDERED: AZITHROMYCIN 250 MG TABLET PO ONE (13:00)
[2018-04-11] MEDS ORDERED: ACYCLOVIR IV 800 MG in IV D5W 100 ML IV SCH (13:00)
[2018-04-11] MEDS ORDERED: ALBUMIN 25% 25 GM in PREMIX 1 EA IV PRN (13:30)
[2018-04-11] MEDS: ACYCLOVIR IV 500 MG in IV D5W 100 ML IV SCH ×2 (13:35→21:31)
[2018-04-11] MEDS: CEFTRIAXONE 1 G in IV D5W 50 ML IV SCH (14:30)
[2018-04-11] MEDS ORDERED: LIDOCAINE 1% INJ 50 ML MDV IJ ONE (15:54)
[2018-04-11 16:00] VITALS: BP 135/77
--- NOTE | 2018-04-11 17:45 | NUR ---
CORRECTION OFFICER SUPERVISOR NOTE UNABLE TO GIVE PO AZITHROMYCIN BECAUSE PATIENT IS NPO DUE TO MENTAL STATUS. NOTIFIED ORDERING SCARFER OF THIS. ALSO NOTIFIED DR. SHELLEY THAT MEDICATION UNABLE TO BE GIVEN AND PER MD, CAN INSERT NG TUBE AND THEN ADMINISTER MEDICATION. WILL ENDORSE TO LAYOUT ARTIST BECAUSE PATIENT WENT FOR LUMBAR PUNCTURE AT 16:30 AND WAS NOT BACK UNTIL 17:30 AND PATIENT HAS TO LAY FLAT UNTIL 19:30 PER RADIOLOGY INSTRUCTIONS. PHARMACY SAID THEY WILL BRING THE AZITHROMYCIN TO THE UNIT AND LEAVE IT IN THE PATIENT'S CASSETTE SO THAT IT CAN BE GIVEN LATER. WILL ENDORSE TO LAYOUT ARTIST NURSE.
[2018-04-11 17:53] LABS: CSF GLUCOSE 58 mg/dL (40-70); CSF PROTEIN 83.3 mg/dL (15-45)
[2018-04-11] MEDS: FLUCONAZOLE IN NS 400 MG in PREMIX 1 EA IV SCH ×2 (18:53)
[2018-04-11 20:00] VITALS: BP 125/74
[2018-04-11] MEDS ORDERED: JEVITY 1.2 CAL 1,000 ML BOTTLE GT PRN (20:30)
--- NOTE | 2018-04-11 21:06 | NUR ---
RN NOTE INSERTED NG TUBE VIA RIGHT NARE WITH A CHARGE NURSE TIFFANI, 16 AZERI, ALL SAFETY MEASURES TAKEN, HOB ELEVATED TO 90 DEGREE, POSITIVE PLACEMENT, AWAITING FOR CHEST X-RAY TO CONFIRM POSITIVE PLACEMENT
[2018-04-12] VITALS: BP 110/75
[2018-04-12] MEDS: FLUCONAZOLE IN NS 400 MG in PREMIX 1 EA IV SCH ×4 (00:17→16:16)
[2018-04-12] MEDS: CEFTRIAXONE 1 G in IV D5W 50 ML IV SCH ×2 (00:17→12:00)
[2018-04-12 04:00] VITALS: BP_SYST 110; BP_SYST 125; BP_DIAS 75; BP_DIAS 82
[2018-04-12] MEDS: ACYCLOVIR IV 500 MG in IV D5W 100 ML IV SCH ×3 (05:01→20:00)
[2018-04-12 06:30] LABS: CALCIUM, SERUM 7.6 mg/dL (8.5-10.1); CREATININE 2.7 mg/dL (0.6-1.3); POTASSIUM 3.5 mmol/L (3.5-5.1)
[2018-04-12 08:00] VITALS: BP 134/81
[2018-04-12] MEDS: HEPARIN SODIUM, PORCINE 5000 UNITS/1 ML VIAL SQ SCH ×2 (09:00→19:45)
[2018-04-12] MEDS: HYDROCORTISONE SOD SUCCINATE 100 MG/2 ML VIAL IV SCH ×3 (09:14→16:15)
[2018-04-12] MEDS: LACTOBACILLUS RHAMNOSUS GG 1 EACH CAP.SPRINK PO SCH ×2 (09:14→16:15)
[2018-04-12] MEDS: SULFAMETH/TRIMETH 800/160 MG 1 UDTAB TABLET PO SCH (09:14)
--- NOTE | 2018-04-12 09:50 | NUR ---
CENTRIFUGE SEPARATOR TENDER NOTE HEPARIN SQ HELD, PATIENT GOING TO PERMACATH PLACEMENT TO OR THIS AFTERNOON.
[2018-04-12] MEDS ORDERED: LIDOCAINE HCL/PF 1% 30 ML SDV ONE (11:37)
[2018-04-12] MEDS ORDERED: HEPARIN SODIUM, PORCINE 1,000 UNIT/ML VIAL ONE (11:37)
[2018-04-12] MEDS: IV NS 0.9% 1,000 ML IV PRN (11:40)
[2018-04-12 16:00] VITALS: BP 131/83
[2018-04-12] MEDS: NEPRO 1,000 ML BOTTLE GT PRN (18:53)
--- NOTE | 2018-04-12 19:45 | NUR ---
RN NOTE NOTIFIED DR BRADEN LIMA REGARDING PLATELETS OF 82, PER MD HOLD HEPARIN TODAY
--- NOTE | 2018-04-12 19:46 | NUR ---
JELANISUMARVA RN NOTE PATIENT RESTING IN BED IN STABLE CONDITION, NO RESPIRATORY DISTRESS NOTED, ON O2 VIA NASAL CANNULA AT 4LPM. NO SIGNS OF PAIN. IV FLUIDS INFUSING ORDERED, NEPRO INFUSING ORDERED VIA NG TUBE. SEQUENTIAL COMPRESSION DEVICES ON. BED IN LOW LOCKED POSITION, CALL LIGHT WITHIN REACH, ENDORSED TO HAZARDOUS SUBSTANCES ENGINEER NURSE FOR CONTINUITY OF CARE.
[2018-04-12 20:00] VITALS: BP 157/94
[2018-04-13] MEDS: CEFTRIAXONE 1 G in IV D5W 50 ML IV SCH ×2 (02:01→12:27)
[2018-04-13] MEDS: FLUCONAZOLE IN NS 400 MG in PREMIX 1 EA IV SCH ×4 (02:02→18:25)
--- NOTE | 2018-04-13 03:59 | NUR ---
RN NOTE PATIENT NOTED RIGHT LOWER EXTREMITY AND MILD DISCOLORATION OF THE RIGHT FOOT Addendum: 04/13/18 at 0403 by RODNEY GARCÍA RN AND PULSE IS PALPABLE, NOTIFIED DR BRADEN LIMA, PER DR FELICIANO CONTINUE TO MONITOR AND ENDORSE IT TO MORNING SHIFT, CHARGE NURSE IS AWARE
[2018-04-13 04:00] VITALS: BP 143/89
[2018-04-13] MEDS: ACYCLOVIR IV 500 MG in IV D5W 100 ML IV SCH ×3 (05:10→22:30)
[2018-04-13 06:24] LABS: BASOPHILS % (AUTO) 0.1 % (0.0-2.0); HEMATOCRIT 26 % (33-45); HEMOGLOBIN 8.6 g/dL (11.5-14.8); LYMPHOCYTES # (AUTO) 1.5 /CMM (0.8-4.8); LYMPHOCYTES % (AUTO) 14.6 % (20.0-44.0); MEAN CORPUSCULAR HGB CONC 33 g/dl (31.0-36.0); MEAN CORPUSCULAR VOLUME 117 fL (82-100); MONOCYTES # (AUTO) 0.5 /CMM (0.1-1.30); MONOCYTES % (AUTO) 4.4 % (2.0-12.0); NEUTROPHILS # (AUTO) 8.4 /CMM (1.8-8.9); NEUTROPHILS % (AUTO) 80.9 % (43.0-81.0); PLATELET COUNT (AUTO) 102 /CMM (150-450); RED BLOOD CELL COUNT(AUTO) 2.25 MIL/uL (4.0-5.2); WHITE BLOOD COUNT (AUTO) 10.4 K/uL (4.3-11.0)
[2018-04-13 06:27] LABS: CALCIUM, SERUM 7.3 mg/dL (8.5-10.1); POTASSIUM 3.4 mmol/L (3.5-5.1)
[2018-04-13 08:00] VITALS: BP 132/86
[2018-04-13 09:06] LABS: LYMPHOCYTES % (MANUAL) 8 % (16-48); MONOCYTES % (MANUAL) 6 % (0-11.0); NEUTROPHILS % (MANUAL) 86 (42-76)
--- NOTE | 2018-04-13 09:30 | NUR ---
[employer] SERVICE TECHNICIAN NOTE PATIENT WITH AN EPISODE OF DIARRHEA. MADE AWARE.
[2018-04-13] MEDS: LACTOBACILLUS RHAMNOSUS GG 1 EACH CAP.SPRINK PO SCH ×2 (11:26→18:25)
[2018-04-13] MEDS: SULFAMETH/TRIMETH 800/160 MG 1 UDTAB TABLET PO SCH (11:26)
[2018-04-13] MEDS: HYDROCORTISONE SOD SUCCINATE 100 MG/2 ML VIAL IV SCH ×3 (11:26→18:24)
[2018-04-13] MEDS: IV NS 0.9% 1,000 ML IV PRN (11:29)
[2018-04-13] MEDS ORDERED: HEPARIN SODIUM, PORCINE 5000 UNITS/1 ML VIAL IV ONE ×2 (11:30→23:30)
[2018-04-13] MEDS ORDERED: HEPARIN INFUSION/D5W 500 ML IV PRN ×2 (11:30→23:30)
[2018-04-13 12:00] VITALS: BP 132/86
[2018-04-13] MEDS ORDERED: VANCOMYCIN 1 GM in IV D5W 250 ML IV PRN (14:30)
--- NOTE | 2018-04-13 15:10 | NUR ---
CONCRETE BUCKET UNLOADER NOTE RECEIVED A CALL FROM LAB THAT APTT IS HIGHER THAN 170. STOPPED HEPARIN DRIP IMMEDIATELY AND PAGED DR. DAY. WAITING FOR RESPONSE.
--- NOTE | 2018-04-13 15:30 | NUR ---
SOCIAL WORKER PSYCHIATRIC NOTE RECEIVED AN ORDER FROM DR. DAY TO KEEP HEPARIN ON HOLD IT IS AND DO STAT APTT LAB DRAW. HEPARIN HAS BEEN ON HOLD SINCE 15:00.
[2018-04-13 16:00] VITALS: BP 154/88
--- NOTE | 2018-04-13 17:10 | NUR ---
DESKTOP SUPPORT MANAGER NOTE RECEIVED A CALL FROM LAB THAT PATIENT'S APTT IS 160. PAGED DOCTOR ANDFRIEDAN IMMEDIATELY AND RECEIVED AN ORDER TO KEEP HEPARIN ON HOLD IT HAS BEEN SINCE 15:00 AND RECHECK APTT AT 18:30.
--- NOTE | 2018-04-13 19:40 | NUR ---
WILDLIFE PROTECTOR NOTE RECEIVED A CALL FROM LAB THAT PATIENT'S APTT IS NOW 32. HEPARIN STILL ON HOLD SINCE 15:00. WILL ENDORSE TO FAMILY COUNSELOR.
[2018-04-13 20:00] VITALS: BP 143/90
--- NOTE | 2018-04-13 20:00 | NUR ---
INSPECTOR PRINTED CIRCUIT BOARDS NOTE PATIENT RESTING IN BED IN STABLE CONDITION. ON DIALYSIS AT THIS TIME. NO RESPIRATORY DISTRESS NOTED, NO SIGNS OF PAIN. ENDORSED TO COMPUTER SYSTEMS SECURITY ADMINISTRATOR NURSE FOR CONTINUITY OF CARE.
--- NOTE | 2018-04-13 21:35 | NUR ---
TELLER NOTE UNABLE TO HOLD [facility]PAR[facility] DRIP [facility] SPREAD[facility] BECAUSE DAY SHIFT NURSES ARE GONE FOR THE DAY AND NEED A COSIGNER.
--- NOTE | 2018-04-13 21:36 | NUR ---
CYTOTECHNOLOGIST NOTE CALLED PATIENT'S RESPONSIBLE [place] MOTHER [place] THAT PATIENT HAS BILATERAL DVT'S AND THAT SHE IS NOW ON HEPARIN DRIP. MOTHER VERY APPRECIATIVE FOR THE PHONE CALL AND ADVICED HER TO CALL BACK IN THE MORNING FOR MORE UPDATES.
[2018-04-14] VITALS (8 sets, daily range): BP systolic 135–154; BP diastolic 75–97
[2018-04-14] MEDS: FLUCONAZOLE IN NS 400 MG in PREMIX 1 EA IV SCH ×4 (00:21→12:27)
[2018-04-14] MEDS: CEFTRIAXONE 1 G in IV D5W 50 ML IV SCH ×2 (00:42→12:26)
[2018-04-14] MEDS: ACYCLOVIR IV 500 MG in IV D5W 100 ML IV SCH ×3 (05:17→20:51)
[2018-04-14 05:32] LABS: BASOPHILS # (AUTO) 0.1 /CMM (0.0-0.2); BASOPHILS % (AUTO) 0.4 % (0.0-2.0); HEMATOCRIT 28 % (33-45); HEMOGLOBIN 9.2 g/dL (11.5-14.8); MEAN CORPUSCULAR HGB CONC 33 g/dl (31.0-36.0); MEAN CORPUSCULAR VOLUME 114 fL (82-100); MONOCYTES # (AUTO) 0.7 /CMM (0.1-1.30); MONOCYTES % (AUTO) 4.7 % (2.0-12.0); NEUTROPHILS # (AUTO) 11.7 /CMM (1.8-8.9); NEUTROPHILS % (AUTO) 80.9 % (43.0-81.0); PLATELET COUNT (AUTO) 126 /CMM (150-450); RED BLOOD CELL COUNT(AUTO) 2.43 MIL/uL (4.0-5.2); WHITE BLOOD COUNT (AUTO) 14.4 K/uL (4.3-11.0)
[2018-04-14 05:51] LABS: CALCIUM, SERUM 7.5 mg/dL (8.5-10.1); CREATININE 2.2 mg/dL (0.6-1.3); POTASSIUM 2.9 mmol/L (3.5-5.1)
[2018-04-14] MEDS: NEPRO 1,000 ML BOTTLE GT PRN (06:13)
--- NOTE | 2018-04-14 07:30 | NUR ---
LOCOMOTIVE PIPE FITTER NOTE PATIENT RECEIVED FROM INSERT CUTTER IN BED. NOSE BLEEDING. HEPARIN DRIP WAS STOPPED AT 0430. LAST PTT CAME BACK AT GREATER THAN 170. ICE PACK APPLIED TO FOREHEAD, AND HOB HIGH. PATIENT HAS NG TUBE FEEDING AT 30 ML HR. PATIENT HAS MICHAEL PICC TKO. PT HYPOKALEMIC 2.9/ HYPOCALCEMIA 7.5 MD LYONSN NOTIFIED. PATIENT HAS NO S/S OF ASPIRATION WILL CONTINUE TO MONITOR CLOSELY.
--- NOTE | 2018-04-14 07:55 | NUR ---
TELE/RN NOTES: RDA INFORMED ABOUT PTT 32 AT ABOUT 8:30 PM. [facility] QUYEN REGAN. AFTER DIALYSIS AT ABOUT 9:30 PM VANCOMYCIN. [facility] FAXED THE HEPARIN TO [facility] TO CLARIFY THE BOLUS DOSE OF HEPARIN BASED ON PTT 32. PER THE PHARMACIST AT 2330 OK TO GIVEN THE BOLUS OF 6400 UNITS X ONE. AND TO INCREASE THE CURRENT RATE BY 300. NEXT PTT WILL BE AT 05:30 A.M. PTT DONE AT 5:10 AM. NOTED BRIGHT RED BLOOD FROM NOSE. INFORMED CHARGE NURSE. CHARGE NURSE ASSESSED. STOPPED THE HEPARIN DRIP. PT. PUT ON CONTINUOUS PULSE OX. PT. W/ O2 @ 4 LPM VIA N/C SAT 100%. PT. HAS A NGT ON RIGHT NARES. TOLERATING NEPRO AT 30 CC/HR. GOAL IS 40. PT. IS COUGHING. WAS DIALYSIS ON 04/13/18 FOR 1 L OUT. HAS OLD RIGHT FEMORAL HD CATH. HAS RIGHT CHEST NEW PERMACATH. MICHAEL PICC LINE PATENT AND INTACT. ON HEPARIN DRIP SECONDARY TO BLE DVT. CHARGE NURSE CALLED AND SPOKE TO DR. FELICIANO AT 07:20 AM TO INFORM ABOUT PT. HAVING BLOODY NOSE. PER DR. FELICIANO STOP THE HEPARIN. REPORT GIVEN TO NEXT SHIFT NURSE.
--- NOTE | 2018-04-14 08:00 | NUR ---
BRANNON RN NOTE PATIENT BLEEDING CONTROLLED AND HEPARIN DRIP HELD PER MD ORDER. PTT TO TO TAKEN AGAIN IN SIS HOURS
[2018-04-14] MEDS: LACTOBACILLUS RHAMNOSUS GG 1 EACH CAP.SPRINK PO SCH ×2 (09:23→16:17)
[2018-04-14] MEDS: SULFAMETH/TRIMETH 800/160 MG 1 UDTAB TABLET PO SCH (09:23)
[2018-04-14] MEDS: HYDROCORTISONE SOD SUCCINATE 100 MG/2 ML VIAL IV SCH ×3 (09:23→16:17)
[2018-04-14 11:10] LABS: VDRL, CSF Non Reactive (Non Rea:<1:1)
[2018-04-14] MEDS: POTASSIUM CHLORIDE 20 MEQ POWDER PACKET GT SCH ×2 (11:17→12:26)
--- NOTE | 2018-04-14 13:00 | NUR ---
BRANNON RN NOTE SPOKE TO ANDONIAN ABOUT TAKING CBC AND PTT TO RESTART DRIP. MD AGREED AND STAT LABS ORDERED.
[2018-04-14 13:29] LABS: BASOPHILS # (AUTO) 0.1 /CMM (0.0-0.2); BASOPHILS % (AUTO) 0.4 % (0.0-2.0); HEMATOCRIT 29 % (33-45); HEMOGLOBIN 9.6 g/dL (11.5-14.8); LYMPHOCYTES # (AUTO) 1.8 /CMM (0.8-4.8); LYMPHOCYTES % (AUTO) 12.6 % (20.0-44.0); MEAN CORPUSCULAR HGB CONC 33 g/dl (31.0-36.0); MEAN CORPUSCULAR VOLUME 115 fL (82-100); MONOCYTES # (AUTO) 0.6 /CMM (0.1-1.30); MONOCYTES % (AUTO) 4.2 % (2.0-12.0); NEUTROPHILS # (AUTO) 11.6 /CMM (1.8-8.9); NEUTROPHILS % (AUTO) 82.8 % (43.0-81.0); PLATELET COUNT (AUTO) 127 /CMM (150-450)
--- NOTE | 2018-04-14 14:00 | NUR ---
BRANNON RN NOTE MD NOTIFIED OF PTT 21.9. PER MD ORDER RESTART HEPARIN DRIP AT INITIAL RATE OF 1450, HOLD BOLUS AND MONITOR FOR BLEEDING.
[2018-04-14 15:04] LABS: LYMPHOCYTES % (MANUAL) 14 % (16-48); MONOCYTES % (MANUAL) 6 % (0-11.0); NEUTROPHILS % (MANUAL) 80 (42-76)
--- NOTE | 2018-04-14 19:34 | NUR ---
TD RN NOTES RECEIVED PT ON BED. A/O X1.STIMULATED BY LIGHT PAIN. OPEN EYES. ON ROOM AIR SATURATING WELL. ON TELE MONITOR SR 104. LALA CATH DRAINING YELLOW URINE. WITH NGT IN PLACED FEEDING RUNNING @ 30CC/HR. WITH HD ACCESS ON RIJ WITH HEPARIN DRIP RUNNING, HD ACCESS ON LEST CHEST WALL. NO ACTIVE BLEEDING NOTED FOR NOW. HEAD OF BED ELEVATED. SIDE RAILS UP. CALL LIGHT WITHIN REACH. BED ALARM ON. WILL CONTINUE TO MONITOR PT CLOSELY.
--- NOTE | 2018-04-14 19:52 | NUR ---
TD RN NOTES CALLED PHARMACY FOR HEPARIN BAG. PER PHARMACY NO ORDERS. CHARGE NURSE SOON INFORMED ABOUT NO ORDERS. PER CHARGE NURSE OKAY TO PUT HEPARIN DRIP NON ACS ORDER.
--- NOTE | 2018-04-14 20:00 | NUR ---
TD RN NOTES NGT IN PLACED. VERIFIED PLACEMENT BY 2 RN. WILL MONITOR PT CLOSELY.
--- NOTE | 2018-04-14 22:12 | NUR ---
TD RN NOTES CALLED [facility] TO VERIFY THE BOLUS DOSE OF 3200 UNIT HEPARIN PER PROTOCOL. FAX THE NON ACS FORM TO VERIFY THE DOSAGE. WILL MONITOR PT CLOSELY.
[2018-04-14] MEDS ORDERED: HEPARIN SODIUM, PORCINE 5000 UNITS/1 ML VIAL IV SCH (22:30)
--- NOTE | 2018-04-14 22:35 | NUR ---
TD RN NOTES BOLUS OF HEPARIN 3200 U GIVEN PER PHARMACY VERIFICATION. NO ACTIVE BLEEDING NOTED. WILL MONITOR PT CLOSELY.
[2018-04-14] MEDS: HEPARIN INFUSION/D5W 500 ML IV PRN (22:49)
[2018-04-14] MEDS: IV NS 0.9% 1,000 ML IV PRN (23:02)
[2018-04-15] VITALS (8 sets, daily range): BP systolic 119–169; BP diastolic 58–94
[2018-04-15] MEDS: FLUCONAZOLE IN NS 400 MG in PREMIX 1 EA IV SCH ×4 (00:01→13:19)
[2018-04-15] MEDS: CEFTRIAXONE 1 G in IV D5W 50 ML IV SCH (00:15)
[2018-04-15] MEDS: HYDROCODONE/APAP 5/325MG 1 EACH TABLET PO PRN (00:52)
[2018-04-15] MEDS: ACYCLOVIR IV 500 MG in IV D5W 100 ML IV SCH ×3 (04:18→21:01)
--- NOTE | 2018-04-15 05:01 | NUR ---
TD RN NOTES LAB CALLED TO DRAW PTT FOR 0500. NO ACTIVE BLEEDING NOTED.
[2018-04-15 05:14] LABS: BASOPHILS % (AUTO) 0.1 % (0.0-2.0); HEMATOCRIT 24 % (33-45); HEMOGLOBIN 7.9 g/dL (11.5-14.8); LYMPHOCYTES # (AUTO) 2.2 /CMM (0.8-4.8); LYMPHOCYTES % (AUTO) 18.4 % (20.0-44.0); MEAN CORPUSCULAR HGB CONC 33 g/dl (31.0-36.0); MEAN CORPUSCULAR VOLUME 116 fL (82-100); MONOCYTES # (AUTO) 0.7 /CMM (0.1-1.30); NEUTROPHILS # (AUTO) 8.9 /CMM (1.8-8.9); NEUTROPHILS % (AUTO) 75.5 % (43.0-81.0); PLATELET COUNT (AUTO) 123 /CMM (150-450); RED BLOOD CELL COUNT(AUTO) 2.08 MIL/uL (4.0-5.2); WHITE BLOOD COUNT (AUTO) 11.7 K/uL (4.3-11.0)
[2018-04-15 05:24] LABS: CALCIUM, SERUM 7.1 mg/dL (8.5-10.1); CREATININE 2.8 mg/dL (0.6-1.3); POTASSIUM 3.9 mmol/L (3.5-5.1)
--- NOTE | 2018-04-15 05:52 | NUR ---
TD RN NOTES PAGED PARIMUTUEL TICKET SELLER FOR HEMOGLOBIN TRENDING DOWN TO 7.9 FROM 9.6. AND PTT OF 115.8. PER DR FELICIANO HOLD THE HEPARIN FOR NOW AND FOLLOW UP IN THE MORNING.
--- NOTE | 2018-04-15 06:35 | NUR ---
TD RN NOTES NO ACUTE CHANGES NOTED DURING THE SHIFT. NO ACTIVE BLEEDING. PTT OF 115.[address] FELICIANO, AND PER DR FELICIANO FOLLOW UP IN AM AND HOLD HEPARIN. DUE MEDS GIVEN. WOUND CARE DONE. PROVIDED COMFORT AND SAFETY. WILL ENDORSE TO THE AM NURSE REGARDING PTT ORDER.
--- NOTE | 2018-04-15 07:30 | NUR ---
BRANNON RN NOTE PATIENT RECEIVED IN BED SLEEPING. PATIENT OPENS EYES TO STIMULI, BUT NO PURPOSEFUL MOVEMENT. HEPARIN DRIP CURRENTLY HELD PER PROTOCOL. MD NOTIFIED. NO S/S OF BLEEDING. MD ALSO NOTIFIED OF LOW HGB TREND NO NEW ORDERS GIVEN. PATIENT REPOSITIONED FOR COMFORT. NO PRESENT S/S OF DISTRESS. PATIENT TOLERATING FEEDING. MD NOTIFIED OF PATIENTS LABILE PTT TRENDS. PER MD ORDER HOLD HEPARIN BOLUS PRN TO PREVENT BLEEDING COMPLICATIONS. RN WILL CONTINUE TO MONITOR CLOSELY. Addendum: 04/15/18 at 0821 by ALEC TURK RN CORRECTION: HEPARIN HELD PER MD ORDER( BRADEN). SHAY NOTIFIED OF CURRENT PTT 115.8. PER MD FOLLOW DRIPS RATE PROTOCOL BUT HOLD BOLUS PRN.
--- NOTE | 2018-04-15 08:21 | NUR ---
BRANNON RN NOTE RESTARTING HEPARIN DRIP PER PROTOCOL AND MD ORDER.
[2018-04-15] MEDS: HYDROCORTISONE SOD SUCCINATE 100 MG/2 ML VIAL IV SCH ×3 (09:00→17:32)
[2018-04-15] MEDS: LACTOBACILLUS RHAMNOSUS GG 1 EACH CAP.SPRINK PO SCH ×2 (09:52→17:32)
[2018-04-15] MEDS: SULFAMETH/TRIMETH 800/160 MG 1 UDTAB TABLET PO SCH (09:52)
--- NOTE | 2018-04-15 11:15 | NUR ---
BRANNON RN NOTE PATIENT HAS NO S/S OF BLEEDING COMPLICATIONS NO EXPLICIT BLEEDING PRESENT.
[2018-04-15] MEDS: IV NS 0.9% 1,000 ML IV PRN (11:43)
--- NOTE | 2018-04-15 12:45 | NUR ---
BRANNON RN NOTE LAB CALLED TO REPORT PTT GREATER THAN 170, PATIENT HAS NO S/S OF BLEEDING. MD NOTIFIED, PER MD ORDER HOLD HEPARIN DRIP AND RETAKE PTT AT 1800. MD REQUESTED PHARMACY CONSULTATION. PHARMACY REPLIED: CONTINUE TO TITRATE MEDICATION PER PROTOCOL. PATIENT CAN NOT BE ON LOVENOX DUE TO HEMODIALYSIS. RN WILL CONTINUE TO MONITOR CLOSELY.
[2018-04-15] MEDS: VANCOMYCIN 500 MG in IV D5W 100 ML IV ONE ×2 (16:34→19:49)
--- NOTE | 2018-04-15 16:54 | NUR ---
BRANNON RN NOTE PATIENT STARTED HD AT 1600, SAME TIME VANCO ADMINISTRATION. HELD VANCO NOTIFIED PHARMACY, WILLOW FROM PHARMACY GAVE THE OKAY TO GIVE AFTER HD.
--- NOTE | 2018-04-15 19:15 | NUR ---
TD/RN INITIAL NOTES RECEIVED PT IN BED. ASLEEP, AROUSABLE TO LIGHT PAIN. FLACC=0. SR ON TELEMONITOR. ON ROOM AIR, TOLERATING WELL. NO SOB NOTED. NGT INTACT AND PROPERLY PLACED. WITH ONGOING GTF NEPHRO AT 30 ML/HR, TOLERATING WELL. WITH INTACT RIGHT FEMORAL CATH AND RIGHT UPPER CHEST WALL CATH FOR HD. PT IS S/P HD, WITH ONGOING HEPARIN DRIP AT 1650 UNITS/HR INFUSING WELL ON MICHAEL. 1600 VANCOMYCIN IV TO BE ADMINISTERED PER AM RN ENDORSEMENT. F/C INTACT AND IN PLACED. HOB ELEVATED. SAFETY MEASURES IN PLACED. CALL LIGHT WITHIN EASY REACH. WILL CONT TO MONITOR
--- NOTE | 2018-04-15 19:20 | NUR ---
BRANNON RN NOTE PTT LAB RESULTS CAME BACK 34.8. PER PROTOCOL RESTARTED HEP DRIP AT 1650. HOLDING BOLUS PER MD ORDER. RN WILL CONTINUE TO MONITOR CLOSELY.
[2018-04-15] MEDS: NEPRO 1,000 ML BOTTLE GT PRN (21:00)
[2018-04-16] VITALS: BP 139/91
--- NOTE | 2018-04-16 00:10 | NUR ---
RN NOTES CALLED LAB TO FOLLOW UP FOR APTT DUE AT 0000
[2018-04-16] MEDS: FLUCONAZOLE IN NS 400 MG in PREMIX 1 EA IV SCH ×4 (00:26→12:05)
[2018-04-16 04:00] VITALS: BP 148/93
[2018-04-16] MEDS ORDERED: HEPARIN INFUSION/D5W 500 ML IV ONE (04:22)
[2018-04-16] MEDS: HEPARIN INFUSION/D5W 500 ML IV PRN (04:24)
[2018-04-16] MEDS: ACYCLOVIR IV 500 MG in IV D5W 100 ML IV SCH ×3 (04:53→21:11)
--- NOTE | 2018-04-16 06:50 | NUR ---
RN NOTES PT REMAINED IN STABLE CONDITION. NO ACUTE CHANGES THROUGHOUT SHIFT. STILL ON HEPARIN DRIP. FOLLOWED UP WITH LAB RE: LAB WORKS. AWAITING FOR APTT FROM LAB. NO SIGNS OF BLEEDING NOTED. SAFETY MEASURES AND ASPIRATION PRECAUTION OBSERVED AT ALL TIMES. ALL NEEDS ANTICIPATED. ENDORSED TO AM SHIFT RN FOR LANDON
[2018-04-16 07:16] LABS: BASOPHILS % (AUTO) 0.4 % (0.0-2.0); EOSINOPHILS % (AUTO) 0.1 % (0.0-6.0); HEMATOCRIT 24 % (33-45); HEMOGLOBIN 7.8 g/dL (11.5-14.8); LYMPHOCYTES # (AUTO) 2.4 /CMM (0.8-4.8); LYMPHOCYTES % (AUTO) 20.1 % (20.0-44.0); MEAN CORPUSCULAR HGB CONC 33 g/dl (31.0-36.0); MEAN CORPUSCULAR VOLUME 116 fL (82-100); MONOCYTES # (AUTO) 0.6 /CMM (0.1-1.30); MONOCYTES % (AUTO) 4.7 % (2.0-12.0); NEUTROPHILS # (AUTO) 8.8 /CMM (1.8-8.9); NEUTROPHILS % (AUTO) 74.7 % (43.0-81.0); PLATELET COUNT (AUTO) 144 /CMM (150-450); RED BLOOD CELL COUNT(AUTO) 2.02 MIL/uL (4.0-5.2); WHITE BLOOD COUNT (AUTO) 11.8 K/uL (4.3-11.0)
[2018-04-16 07:26] LABS: CALCIUM, SERUM 6.9 mg/dL (8.5-10.1); CREATININE 2.1 mg/dL (0.6-1.3); POTASSIUM 3.3 mmol/L (3.5-5.1)
--- NOTE | 2018-04-16 07:30 | NUR ---
BRANNON RN AM NOTES RECEIVED PT IN BED. OPENS EYES, AROUSABLE TO LIGHT PAIN. FLACC=0. SR ON TELE MONITOR. ON ROOM AIR, TOLERATING WELL. NO SOB NOTED. NGT INTACT AND PROPERLY PLACED. CHECKED FOR PLACEMENT, WITH ONGOING GTF NEPHRO AT 30 ML/HR, TOLERATING WELL. 0 RESIDUAL, WITH INTACT RIGHT FEMORAL CATH AND RIGHT UPPER CHEST WALL CATH FOR HD. WITH ONGOING HEPARIN DRIP AT 1650 UNITS/HR INFUSING WELL ON MICHAEL. F/C INTACT AND IN PLACE. HOB ELEVATED. SAFETY MEASURES IN PLACE. CALL LIGHT WITHIN EASY REACH. WILL CONT TO MONITOR
[2018-04-16 08:00] VITALS: BP 161/90
[2018-04-16] MEDS: SULFAMETH/TRIMETH 800/160 MG 1 UDTAB TABLET PO SCH (09:06)
[2018-04-16] MEDS: HYDROCORTISONE SOD SUCCINATE 100 MG/2 ML VIAL IV SCH ×3 (09:06→16:17)
[2018-04-16] MEDS: LACTOBACILLUS RHAMNOSUS GG 1 EACH CAP.SPRINK PO SCH ×2 (09:06→16:17)
[2018-04-16] MEDS: IV NS 0.9% 1,000 ML IV PRN ×2 (09:16→21:26)
--- NOTE | 2018-04-16 09:30 | NUR ---
BRANNON RN NOTES DUE MEDS GIVEN.
[2018-04-16 10:09] LABS: EOSINOPHILS % (MANUAL) 1 % (0-4); LYMPHOCYTES % (MANUAL) 22 % (16-48); MONOCYTES % (MANUAL) 4 % (0-11.0); MYELOCYTES % 1 % (0-0); NEUTROPHILS % (MANUAL) 72 (42-76)
--- NOTE | 2018-04-16 10:17 | NUR ---
BRANNON RN NOTES DR. DAY AWARE THAT LABS WERE UNABLE TO DRAW BLOOD FOR APTT. PER DR. DAY TO DC HEPARIN DRIP AND WILL CONVERT TO XARELTO.
--- NOTE | 2018-04-16 11:35 | NUR ---
BRANNON RN NOTES RELAYED TO DR. DAY THAT PTT IS 170 ABOVE. NO NEW ORDERS.
[2018-04-16 12:00] VITALS: BP 143/74
[2018-04-16 16:00] VITALS: BP 141/91
[2018-04-16] MEDS: RIVAROXABAN 10 MG TABLET PO SCH (16:18)
[2018-04-16] MEDS: CEFTRIAXONE 1 G in IV D5W 50 ML IV SCH (17:03)
--- NOTE | 2018-04-16 18:48 | NUR ---
BRANNON RN CLOSING NOTES PT IN BED. OPENS EYES, AROUSABLE TO LIGHT PAIN. FLACC=0. SR ON TELE MONITOR. ON ROOM AIR, TOLERATING WELL. NO SOB NOTED. NGT INTACT AND PROPERLY PLACED. CHECKED FOR PLACEMENT, WITH ONGOING GTF NEPHRO AT 20 ML/HR, TOLERATING WELL. 0 RESIDUAL, WITH INTACT RIGHT FEMORAL CATH AND RIGHT UPPER CHEST WALL CATH FOR HD. F/C INTACT AND IN PLACE. HOB ELEVATED. SAFETY MEASURES IN PLACE. CALL LIGHT WITHIN EASY REACH. ALL NEEDS MET. PM CARE DONE EARLIER. NO OTHER SIGNIFICANT CHANGE IN CONDITION. WILL ENDORSE TO NEXT SHIFT FOR LANDON.
--- NOTE | 2018-04-16 19:51 | NUR ---
RN BRANNON INITIAL NOTES RECEIVED PT IN BED. OPENS EYES, AROUSABLE TO LIGHT PAIN. FLACC=0. SR ON TELE MONITOR. ON ROOM AIR, TOLERATING WELL. NO SOB NOTED. NGT INTACT AND PROPERLY PLACED. CHECKED FOR PLACEMENT, WITH ONGOING GTF NEPHRO AT 30 ML/HR, TOLERATING WELL. 0 RESIDUAL, WITH INTACT RIGHT FEMORAL CATH AND RIGHT UPPER CHEST WALL CATH FOR HD. S/P HEPARIN DRIP, NO COMPLICATIONS NOTED OR BLEEDING, WILL CONT' TO MONITOR. F/C INTACT AND IN PLACE. HOB ELEVATED. SAFETY MEASURES IN PLACE. CALL LIGHT WITHIN EASY REACH. WILL CONT TO MONITOR
[2018-04-16 20:00] VITALS: BP 116/43
[2018-04-17] MEDS: FLUCONAZOLE IN NS 400 MG in PREMIX 1 EA IV SCH ×2 (00:27)
[2018-04-17 00:40] VITALS: BP 146/80
[2018-04-17] MEDS: HYDROCODONE/APAP 5/325MG 1 EACH TABLET PO PRN (01:11)
[2018-04-17 04:00] VITALS: BP 150/85
--- NOTE | 2018-04-17 05:32 | NUR ---
RN BRANNON CLOSING NOTES ENDORSED PT IN BED. OPENS EYES, AROUSABLE TO LIGHT PAIN. FLACC=0. SR ON TELE MONITOR. ON ROOM AIR, TOLERATING WELL. NO SOB NOTED. NGT INTACT AND PROPERLY PLACED. CHECKED FOR PLACEMENT, WITH ONGOING GTF NEPHRO AT 30 ML/HR, TOLERATING WELL. 0 RESIDUAL, WITH INTACT RIGHT FEMORAL CATH AND RIGHT UPPER CHEST WALL CATH FOR HD. S/P HEPARIN DRIP, NO COMPLICATIONS NOTED OR BLEEDING, WILL CONT' TO MONITOR. F/C INTACT AND IN PLACE. HOB ELEVATED. SAFETY MEASURES IN PLACE. CALL LIGHT WITHIN EASY REACH. WILL CONT TO MONITOR
[2018-04-17 07:12] LABS: BASOPHILS % (AUTO) 0.1 % (0.0-2.0); LYMPHOCYTES # (AUTO) 1.8 /CMM (0.8-4.8); LYMPHOCYTES % (AUTO) 21.6 % (20.0-44.0); MEAN CORPUSCULAR HGB CONC 34 g/dl (31.0-36.0); MEAN CORPUSCULAR VOLUME 116 fL (82-100); MONOCYTES # (AUTO) 0.4 /CMM (0.1-1.30); MONOCYTES % (AUTO) 4.1 % (2.0-12.0); NEUTROPHILS # (AUTO) 6.3 /CMM (1.8-8.9); NEUTROPHILS % (AUTO) 74.2 % (43.0-81.0); PLATELET COUNT (AUTO) 146 /CMM (150-450); WHITE BLOOD COUNT (AUTO) 8.5 K/uL (4.3-11.0)
[2018-04-17 07:19] LABS: RED BLOOD CELL COUNT(AUTO) 1.76 MIL/uL (4.0-5.2)
[2018-04-17 07:26] LABS: CALCIUM, SERUM 7.1 mg/dL (8.5-10.1); CREATININE 2.3 mg/dL (0.6-1.3); POTASSIUM 3.6 mmol/L (3.5-5.1)
[2018-04-17] MEDS: IV NS 0.9% 1,000 ML IV PRN (07:28)
[2018-04-17 07:30] LABS: HEMATOCRIT 20 % (33-45); HEMOGLOBIN 6.9 g/dL (11.5-14.8)
--- NOTE | 2018-04-17 07:30 | NUR ---
BRANNON RN AM NOTES RECEIVED PT IN BED. OPENS EYES, AROUSABLE TO LIGHT PAIN. FLACC=0. SR ON TELE MONITOR. ON ROOM AIR, TOLERATING WELL. NO SOB NOTED. NGT INTACT AND PROPERLY PLACED. CHECKED FOR PLACEMENT, GTF RESTARTED NEPHRO AT 20 ML/HR, TOLERATING WELL. 0 RESIDUAL, WITH INTACT RIGHT FEMORAL CATH AND RIGHT UPPER CHEST WALL CATH FOR HD. CDI DRESSING. WITH ONGOING NS A T125 ML/HR INFUSING WELL ON MICHAEL. F/C INTACT AND IN PLACE. HOB ELEVATED. SAFETY MEASURES IN PLACE. CALL LIGHT WITHIN EASY REACH. WILL CONT TO MONITOR
[2018-04-17 08:00] VITALS: BP 120/73
--- NOTE | 2018-04-17 08:10 | NUR ---
BRANNON RN, was notified re; hgb 6.9 stated that recheck at 10am cbc today and call to
--- NOTE | 2018-04-17 09:27 | NUR ---
BRANNON RN,seen by and orders obtaiend if HGB <7 give 2 units PRBC TODAY with HD nurse
--- NOTE | 2018-04-17 09:30 | NUR ---
BRANNON RN NOTES DUE MEDS GIVEN.
[2018-04-17] MEDS: HYDROCORTISONE SOD SUCCINATE 100 MG/2 ML VIAL IV SCH ×3 (09:31→17:19)
[2018-04-17] MEDS: ACYCLOVIR IV 500 MG in IV D5W 100 ML IV SCH ×2 (09:31→22:23)
[2018-04-17] MEDS: SULFAMETH/TRIMETH 800/160 MG 1 UDTAB TABLET PO SCH (09:31)
[2018-04-17] MEDS: RIVAROXABAN 10 MG TABLET PO SCH ×2 (09:32→17:21)
[2018-04-17] MEDS: LACTOBACILLUS RHAMNOSUS GG 1 EACH CAP.SPRINK PO SCH ×2 (09:32→17:19)
[2018-04-17 09:33] LABS: HEMOGLOBIN 7.3 g/dL (11.5-14.8)
--- NOTE | 2018-04-17 10:00 | NUR ---
BRANNON RN NOTES DR. DAY NOTIFIED OF REPEAT HGB/HCT RESULT = 7.3. BLOOD PLACED ON STAND BY.
[2018-04-17 11:54] LABS: LYMPHOCYTES % (MANUAL) 23 % (16-48); MONOCYTES % (MANUAL) 4 % (0-11.0); NEUTROPHILS % (MANUAL) 73 (42-76)
[2018-04-17 12:00] VITALS: BP 112/53
[2018-04-17] MEDS: FLUCONAZOLE (100 MG) 100 MG TABLET NG SCH (14:30)
[2018-04-17 16:00] VITALS: BP 143/86
--- NOTE | 2018-04-17 17:05 | NUR ---
BRANNON RN NOTES HD COMPLETED, 2000 ML OUTPUT. BP 128/76, UT 62, O2 SAT 97%.
[2018-04-17] MEDS: CEFTRIAXONE 1 G in IV D5W 50 ML IV SCH (17:21)
[2018-04-17] MEDS ORDERED: IV NS 0.9% 1,000 ML IV PRN (17:30)
--- NOTE | 2018-04-17 19:22 | NUR ---
BRANNON RN CLOSING NOTES PT IN BED. OPENS EYES, AROUSABLE TO LIGHT PAIN. FLACC=0. SR ON TELE MONITOR. ON ROOM AIR, TOLERATING WELL. NO SOB NOTED. NGT INTACT AND PROPERLY PLACED. CHECKED FOR PLACEMENT, WITH ONGOING GTF NEPHRO AT 20 ML/HR, TOLERATING WELL. 0 RESIDUAL, WITH INTACT RIGHT FEMORAL CATH AND RIGHT UPPER CHEST WALL CATH FOR HD. F/C INTACT AND IN PLACE 350 ML OUTPUT. HOB ELEVATED. SAFETY MEASURES IN PLACE. CALL LIGHT WITHIN EASY REACH. ALL NEEDS MET. PM CARE DONE EARLIER. NO OTHER SIGNIFICANT CHANGE IN CONDITION. WILL ENDORSE TO NEXT SHIFT FOR LANDON.
[2018-04-17 20:00] VITALS: BP 112/73
--- NOTE | 2018-04-17 21:00 | NUR ---
RT NOTE LATE ENTRY. @ 2024 NT SX PERFORMED WITH NO COMPLICATIONS. NABEEL CALDERON NOTIFIED AND AWARE.
[2018-04-18] VITALS: BP 162/90
[2018-04-18] MEDS: NEPRO 1,000 ML BOTTLE GT PRN (00:03)
[2018-04-18] MEDS: FLUCONAZOLE (100 MG) 100 MG TABLET NG SCH ×2 (00:03→12:17)
[2018-04-18] MEDS: HYDROCODONE/APAP 5/325MG 1 EACH TABLET PO PRN (00:31)
--- NOTE | 2018-04-18 01:51 | NUR ---
RT NOTE LATE ENTRY. @ 0046 NT SX PERFORMED WITH NO COMPLICATIONS. RN YUMIKO NOTIFIED AND AWARE.
[2018-04-18 04:00] VITALS: BP 159/92
[2018-04-18 07:05] LABS: BASOPHILS % (AUTO) 0.1 % (0.0-2.0); EOSINOPHILS % (AUTO) 0.1 % (0.0-6.0); HEMATOCRIT 22 % (33-45); HEMOGLOBIN 7.3 g/dL (11.5-14.8); LYMPHOCYTES # (AUTO) 2.1 /CMM (0.8-4.8); LYMPHOCYTES % (AUTO) 23.5 % (20.0-44.0); MEAN CORPUSCULAR HGB CONC 34 g/dl (31.0-36.0); MEAN CORPUSCULAR VOLUME 117 fL (82-100); MONOCYTES # (AUTO) 0.5 /CMM (0.1-1.30); MONOCYTES % (AUTO) 5.2 % (2.0-12.0); NEUTROPHILS # (AUTO) 6.3 /CMM (1.8-8.9); NEUTROPHILS % (AUTO) 71.1 % (43.0-81.0); PLATELET COUNT (AUTO) 200 /CMM (150-450); WHITE BLOOD COUNT (AUTO) 8.9 K/uL (4.3-11.0)
--- NOTE | 2018-04-18 07:10 | NUR ---
RN NOTES RECEIVED PT ON BED, AROUSABLE TO LIGHT PAIN. ON 1.5L O2 N/C , NO SOB NOTED, ON TELE SR HR IN 60'S, NEPRO AT 20CC/HR RUNNING VIA R NARE NGT , TOLERATING WELL, NO RESIDUAL NOTED, NGT CHECKED FOR PLACEMENT, RIGHT FEMORAL HD CATH AND RIGHT UPPER CHEST WALL HD CATH , CLEAN DRY AND INTACT, NS AT 50CC/HR RUNNING VIA R UPPER ARM PICC LINE , SITE CLEAN, DRY AND INTACT, F/C INTACT AND IN PLACE DRINING TO GRAVITY , HOB ELEVATED. SAFETY MEASURES IN PLACE. SR UP X3, CALL LIGHT WITHIN EASY REACH. WILL CONTINUE TO MONITOR.
[2018-04-18 07:18] LABS: CALCIUM, SERUM 7.8 mg/dL (8.5-10.1); CREATININE 2.4 mg/dL (0.6-1.3); POTASSIUM 3.8 mmol/L (3.5-5.1)
[2018-04-18 07:24] LABS: RED BLOOD CELL COUNT(AUTO) 1.88 MIL/uL (4.0-5.2)
[2018-04-18 08:00] VITALS: BP 128/80
[2018-04-18] MEDS: HYDROCORTISONE SOD SUCCINATE 100 MG/2 ML VIAL IV SCH ×3 (08:27→16:18)
[2018-04-18] MEDS: LACTOBACILLUS RHAMNOSUS GG 1 EACH CAP.SPRINK PO SCH ×2 (08:27→16:18)
[2018-04-18] MEDS: SULFAMETH/TRIMETH 800/160 MG 1 UDTAB TABLET PO SCH (08:27)
[2018-04-18] MEDS: RIVAROXABAN 10 MG TABLET PO SCH ×3 (08:28→16:19)
[2018-04-18] MEDS: ACYCLOVIR IV 500 MG in IV D5W 100 ML IV SCH (09:32)
[2018-04-18 12:00] VITALS: BP 131/78
[2018-04-18] MEDS ORDERED: RIVA10TA PO (12:16)
[2018-04-18] MEDS ORDERED: AZITHROMYCIN 250 MG TABLET PO SCH (13:00)
--- NOTE | 2018-04-18 13:00 | NUR ---
RN NOTES LEFT FEMORAL HD CATH REMOVED BY DR. MICHAELS. PRESSURE DRESSING APPLIED TO THE SITE , CONTINUE TO MONITOR .
[2018-04-18] MEDS: CEFTRIAXONE 1 G in IV D5W 50 ML IV SCH (15:13)
[2018-04-18 15:23] LABS: BASOPHILS % (AUTO) 0.2 % (0.0-2.0); HEMATOCRIT 24 % (33-45); HEMOGLOBIN 7.8 g/dL (11.5-14.8); LYMPHOCYTES # (AUTO) 1.8 /CMM (0.8-4.8); LYMPHOCYTES % (AUTO) 21.8 % (20.0-44.0); MEAN CORPUSCULAR HGB CONC 33 g/dl (31.0-36.0); MEAN CORPUSCULAR VOLUME 117 fL (82-100); MONOCYTES # (AUTO) 0.3 /CMM (0.1-1.30); MONOCYTES % (AUTO) 3.5 % (2.0-12.0); NEUTROPHILS # (AUTO) 6.2 /CMM (1.8-8.9); NEUTROPHILS % (AUTO) 74.5 % (43.0-81.0); PLATELET COUNT (AUTO) 207 /CMM (150-450); RED BLOOD CELL COUNT(AUTO) 2.01 MIL/uL (4.0-5.2); WHITE BLOOD COUNT (AUTO) 8.3 K/uL (4.3-11.0)
[2018-04-18 16:00] VITALS: BP 137/98
--- NOTE | 2018-04-18 16:00 | NUR ---
RN NOTES PICC LINE D/ANTONIETA PER MD ORDER .
--- NOTE | 2018-04-18 17:00 | NUR ---
RN NOTES PT REQUESTING TO BE DNR , DR JERNIGAN NOTIFIED . Addendum: 04/18/18 at 1816 by KAYLA CRUZ RN PLEASE DISREGARD ABOVE CHARTING . CHARTED ON WRONG PT .
--- NOTE | 2018-04-18 17:28 | NUR ---
RN NOTES VSS STABLE , PT LEFT THE FLOOR TO MAIN ENTRANCE ACCOMPANIED BY EMT PERSONNEL TO SNF IN STABLE CONDITION
[2018-04-21 15:11] LABS: *CRYPTOCOCCUS AG, CSF Negative (Negative)
== END 2018-04-18 17:20 | DRG 890 ==
LOC: ER 13:29 → ICU 16:26 → TELE1 04-10 18:21 → MEDSG1 04-12 09:46 → TELE1 04-13 11:29 → TELE-TD 04-14 09:02 → TELE1 04-18 10:32
PROVIDERS: ADMIT Student in an Organized Health Care Education/Training Program; ATTEND Family Medicine
PROC: B54BZZA Ultrasonography of Right Lower Extremity Veins, Guidance (ICD-10-PCS; 2018-04-08)
PROC: 5A1D70Z Performance of Urinary Filtration, Intermittent, Less than 6 Hours Per Day (ICD-10-PCS; 2018-04-08)
PROC: 05H533Z Insertion of Infusion Device into Right Subclavian Vein, Percutaneous Approach (ICD-10-PCS; 2018-04-08)
PROC: B546ZZA Ultrasonography of Right Subclavian Vein, Guidance (ICD-10-PCS; 2018-04-08)
PROC: 06HM33Z Insertion of Infusion Device into Right Femoral Vein, Percutaneous Approach (ICD-10-PCS; 2018-04-08)
PROC: 0JHL3XZ Insertion of Tunneled Vascular Access Device into Right Upper Leg Subcutaneous Tissue and Fascia, Percutaneous Approach (ICD-10-PCS; 2018-04-08)
PROC: 00JU3ZZ Inspection of Spinal Canal, Percutaneous Approach (ICD-10-PCS; 2018-04-11)
PROC: 5A1D70Z Performance of Urinary Filtration, Intermittent, Less than 6 Hours Per Day (ICD-10-PCS; 2018-04-11)
PROC: 0JH63XZ Insertion of Tunneled Vascular Access Device into Chest Subcutaneous Tissue and Fascia, Percutaneous Approach (ICD-10-PCS; principal; 2018-04-12 12:55)
PROC: 05HM33Z Insertion of Infusion Device into Right Internal Jugular Vein, Percutaneous Approach (ICD-10-PCS; principal; 2018-04-12 12:55)
PROC: B543ZZA Ultrasonography of Right Jugular Veins, Guidance (ICD-10-PCS; principal; 2018-04-12 12:55)
PROC: 30233R1 Transfusion of Nonautologous Platelets into Peripheral Vein, Percutaneous Approach (ICD-10-PCS; principal; 2018-04-12 12:55)
PROC: 5A1D70Z Performance of Urinary Filtration, Intermittent, Less than 6 Hours Per Day (ICD-10-PCS; 2018-04-13)
PROC: 5A1D70Z Performance of Urinary Filtration, Intermittent, Less than 6 Hours Per Day (ICD-10-PCS; 2018-04-15)
PROC: 5A1D70Z Performance of Urinary Filtration, Intermittent, Less than 6 Hours Per Day (ICD-10-PCS; 2018-04-17)
DX: A41.9 Sepsis, unspecified organism (principal); B20 Human immunodeficiency virus [HIV] disease; G92 Toxic encephalopathy; I21.A1 Myocardial infarction type 2; R65.21 Severe sepsis with septic shock; J69.0 Pneumonitis due to inhalation of food and vomit; E44.0 Moderate protein-calorie malnutrition; B49 Unspecified mycosis; I82.403 Acute embolism and thrombosis of unspecified deep veins of lower extremity, bilateral; E87.2 Acidosis; N17.9 Acute kidney failure, unspecified; D69.6 Thrombocytopenia, unspecified; E44.1 Mild protein-calorie malnutrition; E87.0 Hyperosmolality and hypernatremia; B96.5 Pseudomonas (aeruginosa) (mallei) (pseudomallei) as the cause of diseases classified elsewhere; I12.9 Hypertensive chronic kidney disease with stage 1 through stage 4 chronic kidney disease, or unspecified chronic kidney disease; N18.9 Chronic kidney disease, unspecified; I25.10 Atherosclerotic heart disease of native coronary artery without angina pectoris; J44.9 Chronic obstructive pulmonary disease, unspecified; Z87.01 Personal history of pneumonia (recurrent); Z79.82 Long term (current) use of aspirin; Z79.899 Other long term (current) drug therapy; S93.325A Dislocation of tarsometatarsal joint of left foot, initial encounter; X58.XXXA Exposure to other specified factors, initial encounter; Y92.009 Unspecified place in unspecified non-institutional (private) residence as the place of occurrence of the external cause; K62.89 Other specified diseases of anus and rectum; N20.0 Calculus of kidney; Z86.010 Personal history of colon polyps; K46.9 Unspecified abdominal hernia without obstruction or gangrene; E86.0 Dehydration; F32.9 Major depressive disorder, single episode, unspecified; K59.09 Other constipation; F29 Unspecified psychosis not due to a substance or known physiological condition; E87.5 Hyperkalemia; K21.9 Gastro-esophageal reflux disease without esophagitis; N39.0 Urinary tract infection, site not specified; E87.6 Hypokalemia; D64.9 Anemia, unspecified; K62.9 Disease of anus and rectum, unspecified
CPT/HCPCS: 31720; 36415; 36569; 36600; 62270; 70450-TC; 71045-TC; 80048-TC; 80053-TC; 80061-TC; 80076-TC; 80202-TC; 81000-TC; 82140-TC; 82248-TC; 82533; 82803-TC; 82962-TC; 83605-TC; 83615-TC; 83735-TC; 84100-TC; 84484-TC; 85025-TC; 85027-TC; 85610-TC; 85730-TC; 86360; 86592; 86635; 86704; 86705; 86706; 86803; 86850-TC; 86921-TC; 87040-TC; 87070-TC; 87081-TC; 87086-TC; 87186-TC; 87340; 87400; 87806; 87899; 89051-TC; 90935-TC; 93307-TC; 93970-TC; 94799-TC; 95819-TC; A4216; A4606; A4624; A6402; A6403; C1750; C1751; G0378; J0133; J0692; J0696; J1450; J1644; J1720; J2185; J3370; J3475; J3480; J3490; J7030; J7040; J7050; J7060; P9016-BL; P9034-BL; P9047; Z7610

== ENCOUNTER 2018-05-19 11:56 | Inpatient (IN) | payer OTHER ==
[~2018-05-19] VITALS: Ht 177.8 cm; Wt 83.0 kg
[~2018-05-19 11:56] MED LIST changes: +DOCU250C14 PO; +MAG30ORA PO; +MAGN400O6 PO; +MEGE400O4 PO; +NA P133E RC; -OXYB10TA PO; +OXYB5TAB11 PO; +POLY17PO4 PO; +POTA20TA83 PO; +RIVA10TA PO; -TRAM50TA2 PO
--- NOTE | 2018-05-19 12:15 | NUR ---
NARAYAN [facility] FOR FEVER, POS SEPSIS. MISSED DIALYSIS PER REPORT. PT IS AOX0, RESPONDS TO PAINFUL STIMULI. TEMP IS 102.6, OTHERWISE VSS, RR EVEN AND UNLABORED ON 2L NC. SKIN WARM DRY INTACT, EXTREMITIES SLIGHTLY CONTRACTED. NO ACUTE DISTRESS NOTED. READY FOR EVAL.
[2018-05-19] MEDS ORDERED: RIVA10TA PO (12:26)
[2018-05-19] MEDS ORDERED: ALBU1.257 IH (12:26)
[2018-05-19] MEDS ORDERED: AMIN30LI2 PO (12:26)
[2018-05-19] MEDS ORDERED: NAPH1POW3 PO (12:26)
[2018-05-19] MEDS ORDERED: HYDR-3974 PO (12:26)
[2018-05-19] MEDS ORDERED: IV NS 0.9% 1,000 ML BAG IV ONE (12:30)
[2018-05-19 12:46] LABS: BASOPHILS # (AUTO) 0.1 /CMM (0.0-0.2); BASOPHILS % (AUTO) 0.9 % (0.0-2.0); EOSINOPHILS % (AUTO) 0.1 % (0.0-6.0); HEMATOCRIT 38 % (33-45); LYMPHOCYTES # (AUTO) 2.3 /CMM (0.8-4.8); LYMPHOCYTES % (AUTO) 32.9 % (20.0-44.0); MEAN CORPUSCULAR HGB CONC 31 g/dl (31.0-36.0); MEAN CORPUSCULAR VOLUME 120 fL (82-100); MONOCYTES # (AUTO) 0.5 /CMM (0.1-1.30); MONOCYTES % (AUTO) 7.4 % (2.0-12.0); NEUTROPHILS # (AUTO) 4.2 /CMM (1.8-8.9); NEUTROPHILS % (AUTO) 58.7 % (43.0-81.0); PLATELET COUNT (AUTO) 232 /CMM (150-450); RED BLOOD CELL COUNT(AUTO) 3.19 MIL/uL (4.0-5.2); WHITE BLOOD COUNT (AUTO) 7.1 K/uL (4.3-11.0)
[2018-05-19 12:55] LABS: CALCIUM, SERUM 9.9 mg/dL (8.5-10.1); CARBON DIOXIDE 19 mmol/L (21-32); CHLORIDE 109 mmol/L (98-107); CREATININE 2.5 mg/dL (0.6-1.3); GLUCOSE 98 mg/dL (74-106); SODIUM SERUM 140 mmol/L (136-145); UREA NITROGEN, BLOOD 34 mg/dL (7-18)
[2018-05-19 13:00] VITALS: BP 109/67
[2018-05-19 13:00] LABS: ALANINE AMINOTRANSFERASE 12 U/L (12-78); ALBUMIN 3.1 g/dL (3.4-5.0); ALKALINE PHOSPHATASE 125 U/L (46-116); ASPARTATE AMINOTRANSFERASE 19 U/L (15-37); BILIRUBIN,DIRECT 0.1 mg/dL (0.0-0.2); BILIRUBIN,TOTAL 0.4 mg/dL (0.2-1.0); TOTAL PROTEIN, SERUM 7.2 g/dL (6.4-8.2)
--- NOTE | 2018-05-19 13:02 | NUR ---
ASSIST STUDENTS TO CLEAN PT
[2018-05-19 13:17] LABS: APPEARANCE,URINE CLOUDY (CLEAR); BILIRUBIN,URINE NEGATIVE (NEGATIVE); BLOOD, URINE 2+ Ery/uL (NEGATIVE); KETONES,URINE TRACE (NEGATIVE); LEUKOCYTE ESTERASE ,URINE 3+ (NEGATIVE); NITRITE, URINE NEGATIVE (NEGATIVE); PROTEIN,URINE 2+ mg/dl (NEGATIVE); UGLUCOSE 1+ mg/dL (NEGATIVE); UROBILINOGEN,URINE 0.2 EU/dL (0.2)
--- NOTE | 2018-05-19 13:18 | NUR ---
XRAY AT BEDSIDE
[2018-05-19 13:22] LABS: COLOR,URINE YELLOW (YELLOW)
[2018-05-19 13:23] LABS: RBC,URINE 21-50 /HPF (0-2); WBC,URINE TOO NUMEROUS TO COUN /HPF (0-3)
[2018-05-19 13:24] LABS: BACTERIA,URINE 1+ /HPF (None Seen); SQUAMOUS EPITHELIAL CELL,UR Moderate /HPF (None Seen)
--- NOTE | 2018-05-19 14:00 | NUR ---
PT RESTING COMFORTABLY IN BED. AROUSES EASILY. VSS. WILL CONT TO MONITOR.
[2018-05-19 14:15] VITALS: BP 109/64
--- NOTE | 2018-05-19 14:23 | NUR ---
REPORT GIVEN TO NABEEL MACHADO FOR LANDON
--- NOTE | 2018-05-19 14:34 | NUR ---
PT TRANSFERRED TO FLOOR
[2018-05-19] MEDS ORDERED: ONDANSETRON HCL/PF 4 MG/2 ML VIAL IVP PRN (15:00)
[2018-05-19] MEDS ORDERED: MAGNESIUM HYDROXIDE 30 ML UDC PO PRN (15:00)
[2018-05-19] MEDS ORDERED: HYDROCODONE/APAP 5/325MG 1 EACH TABLET PO PRN (15:00)
[2018-05-19] MEDS ORDERED: MAG HYDROX/AL HYDROX/SIMETH 30 ML UDC PO PRN (15:00)
[2018-05-19] MEDS ORDERED: NA PHOS,M-B/NA PHOS,DI-BA 1 EA ENEMA RC PRN (15:00)
[2018-05-19] MEDS ORDERED: ALBUTEROL HALF STRENGTH 1.25 MG/3 ML VIAL.NEB NEB PRN (15:00)
--- NOTE | 2018-05-19 15:00 | NUR ---
HAND SIZERRN. JESS NI. PT RECEIVED FROM [facility] WITH RN AND EMT TRANSPORT FROM ER. PT EYES OPEN, WITHDRAWS TO PAIN, UNABLE TO FOLLOW ANY COMMANDS. PT WITH O2 VIA NC AT 2LPM, R UPPER RHONCHI, OTHERWISE CLEAR, WITHOUT RESP DISTRESS. PT UNABLE TO INDICATE PAIN AT THIS TIME, WITHOUT OBVIOUS S/S OF DISTRESS OR DISCOMFORT. PT BELONGINGS CHARTED. PT SKIN ASSESSMENT COMPLETED-CARE PLANS ENTERED. PT ADMISSION DETAILS FROM PREV RECORDS, MOTHER UNABLE TO PROVIDE CLEAR DETAILS UNABLE TO ANSWER QUESTIONS. PT WITH IVC AT R HAND INTACT AND SALINE FLUSH PATENT. HD CATH R CHEST WALL. CLOTH WEIGHER NN AWARE OF PT AND STATUS. VITALS CHARTED. PT BED IN LOWEST LOCKED POSITION WITH HANDRAILSX4, BED ALARM ON, HOB ELEVATED, SCDS PLACED. WILL CONTINUE POC.
[2018-05-19 16:00] VITALS: BP 117/66
[2018-05-19] MEDS ORDERED: VANCOMYCIN 1 GM in IV D5W 250 ML IV ONE (16:00)
[2018-05-19] MEDS ORDERED: VANCOMYCIN 500 MG in IV D5W 100 ML IV PRN (16:00)
[2018-05-19] MEDS: MEGESTROL ACETATE SUSP 400 MG/10 ML UDC PO SCH (16:17)
[2018-05-19] MEDS: DOCUSATE SODIUM 250 MG CAPSULE PO SCH (16:17)
[2018-05-19] MEDS: OXYBUTYNIN CHLORIDE 5 MG TABLET PO SCH (16:17)
[2018-05-19] MEDS: GABAPENTIN 100 MG CAPSULE PO SCH (16:18)
[2018-05-19] MEDS: PROSOURCE / PROSTAT (PYXIS) 30 ML UDC PO SCH (16:19)
--- NOTE | 2018-05-19 16:19 | NUR ---
MEDICATION NOTES. PT UNABLE TO TAKE ANY MEDICATIONS R/T ALOC. PT SWALLOWED ONE VERY SMALL SPOONFUL OF APPLE SAUCE WITHOUT INCIDENT TRIAL. PT WILL NOT FOLLOW COMMANDS, WILL NOT OPEN OR CLOSE MOUTH. MEDICATIONS HELD.
[2018-05-19] MEDS: RIVAROXABAN 10 MG TABLET PO SCH (17:00)
[2018-05-19] MEDS: MEROPENEM 500 MG in IV NS 0.9% 50 ML IV SCH (17:01)
[2018-05-19] MEDS ORDERED: FEE PK DOSING 1 MIN EA MC ONE (17:04)
--- NOTE | 2018-05-19 18:08 | NUR ---
MEDICATION NOTES. PT UNABLE TO TAKE ANY MEDICATIONS R/T ALOC.
--- NOTE | 2018-05-19 18:08 | NUR ---
PT UNABLE TO EAT.
--- NOTE | 2018-05-19 18:21 | NUR ---
ABALONE FISHERMAN. JESS NI. PT EYES OPEN, TRACKING, ALERT TO NOISES BUT UNABLE TO FOLLOW ANY COMMANDS. PT WITH O2 VIA NC AT 2LPM WITHOUT RESP DISTRESS. PT WITHOUT OBVIOUS S/S OF DISTRESS OR DISCOMFORT. PT WITH IVC AT L HAND INTACT AND OPERATIONAL WITH IVAB. PT BED IN LOWEST LOCKED POSITION WITH HANDRAILSX4, BED ALARM ON, HOB ELEVATED, SCDS INSITU. WILL ENDORSE TO NIGHT NURSE AT BEDSIDE FOR LANDON.
--- NOTE | 2018-05-19 19:00 | NUR ---
RN NOTES RECEIVE PT IN THE BED OPENS EYES NON VERBAL. IN STABLE CONDITION, NOT IN DISTRESS, SAFETY MEASURES IN PLACE. WILL CONTINUE TO MONITOR.
[2018-05-19 20:00] VITALS: BP 97/67
[2018-05-19] MEDS ORDERED: TEMAZEPAM 15 MG CAPSULE PO PRN (22:00)
[2018-05-20] VITALS: BP_SYST 107; BP_SYST 115; BP_DIAS 62; BP_DIAS 67
[2018-05-20 04:00] VITALS: BP 108/80
[2018-05-20] MEDS: MEROPENEM 500 MG in IV NS 0.9% 50 ML IV SCH ×2 (04:06→16:48)
--- NOTE | 2018-05-20 06:19 | NUR ---
RN CLOSING NOTE ASLEEP AND EASILY AWAKEN, 2LPM VIA NC 02 SAT AT 98%, AM CARE PROVIDED. STABLE CONDITION AND NOT IN DISTRESS. RESPIRATIONS EVEN AND UNLABORED. NURSING CARE RENDERED. NEEDS ATTENDED AND ANTICIPATED. REPOSITION EVERY [address] ME[address] PL[address], KEPT CLEAN AND DRY AND COMFORT. GOOD SKIN CARE PROVIDED. CALL LIGHT WITHIN REACH. WILL ENDORSE TO SHIPYARD HELPER FOR LANDON. Addendum: 05/20/18 at 0622 by NORM WANG RN SR 71'S HR. IN THE TELE MONITOR
[2018-05-20 06:36] LABS: CALCIUM, SERUM 9.3 mg/dL (8.5-10.1); CREATININE 2.5 mg/dL (0.6-1.3); MAGNESIUM 2.3 mg/dL (1.8-2.4); PHOSPHORUS 5.1 mg/dL (2.5-4.9); POTASSIUM 4.1 mmol/L (3.5-5.1)
[2018-05-20] MEDS: PANTOPRAZOLE 40 MG TABLET.DR PO SCH ×2 (07:30→08:58)
[2018-05-20 08:00] VITALS: BP 90/65
[2018-05-20] MEDS: METOPROLOL TARTRATE 50 MG TABLET PO SCH (08:45)
[2018-05-20] MEDS: GABAPENTIN 100 MG CAPSULE PO SCH ×4 (08:57→17:23)
[2018-05-20] MEDS: MEGESTROL ACETATE SUSP 400 MG/10 ML UDC PO SCH ×3 (08:57→17:23)
[2018-05-20] MEDS: OXYBUTYNIN CHLORIDE 5 MG TABLET PO SCH ×3 (08:58→17:23)
[2018-05-20] MEDS: POTASSIUM CHLORIDE 20 MEQ TAB.PRT.SR PO SCH ×2 (08:58→09:00)
[2018-05-20] MEDS: ASPIRIN EC 81 MG TABLET.DR PO SCH ×2 (08:58→09:00)
[2018-05-20] MEDS: DOCUSATE SODIUM 250 MG CAPSULE PO SCH ×3 (08:58→17:00)
[2018-05-20] MEDS: FAMOTIDINE (20 MG) 20 MG TABLET PO SCH ×2 (08:58→09:00)
[2018-05-20] MEDS: FOLIC ACID 1 MG TABLET PO SCH ×2 (08:58→09:00)
[2018-05-20] MEDS: PROSOURCE / PROSTAT (PYXIS) 30 ML UDC PO SCH ×4 (08:59→17:00)
[2018-05-20] MEDS ORDERED: HOME MED MISCELLANEOUS XX SCH (09:00)
--- NOTE | 2018-05-20 09:20 | NUR ---
m/s medical reviewer: swallow eval maria m (s.t.) at bedside for swallow eval, but pt is high risk of aspiration. s.t. recommend npo. will inform md. will continue to monitor.
[2018-05-20 09:22] LABS: BASOPHILS % (AUTO) 0.5 % (0.0-2.0); EOSINOPHILS % (AUTO) 0.4 % (0.0-6.0); HEMATOCRIT 35 % (33-45); HEMOGLOBIN 10.7 g/dL (11.5-14.8); LYMPHOCYTES # (AUTO) 1.9 /CMM (0.8-4.8); MEAN CORPUSCULAR HGB CONC 31 g/dl (31.0-36.0); MEAN CORPUSCULAR VOLUME 121 fL (82-100); MONOCYTES # (AUTO) 0.4 /CMM (0.1-1.30); MONOCYTES % (AUTO) 8.7 % (2.0-12.0); NEUTROPHILS # (AUTO) 2.2 /CMM (1.8-8.9); NEUTROPHILS % (AUTO) 48.4 % (43.0-81.0); PLATELET COUNT (AUTO) 220 /CMM (150-450); RED BLOOD CELL COUNT(AUTO) 2.89 MIL/uL (4.0-5.2); WHITE BLOOD COUNT (AUTO) 4.6 K/uL (4.3-11.0)
--- NOTE | 2018-05-20 09:45 | NUR ---
m/s garage door opener installer: notes called [facility] re: Complera medication and immunization, spoke to eladio (rn) and informed that they cannot bring the medication to the hospital and also had her influenza on jan 17, 2018. rhina (pharmacist) made aware.
--- NOTE | 2018-05-20 10:43 | NUR ---
WOUND CARE CONSULT: PT PRESENTS WITH DRY BLACK NECROTIC TISSUE TO TOES, SACRAL SCARRING, SCARRING WITH DISCOLORATION TO RT ARM, RED DISCOLORATION/BRUISING TO RT JAW AREA, RT BUTTOCK INCONTINENCE ASSOCIATED SKIN DAMAGE, ALL PRESENT ON ADMISSION. RECOMMENDATIONS MADE FOR SKIN PROTECTION AND CARE. DISCUSSED WITH NURSING STAFF. DPM CONSULT RECOMMENDED. LOW AIRLOSS BED TO BE PLACED. WILL SEE PRN. ETIENNE IN AGREEMENT WITH PLAN OF CARE. Addendum: 05/20/18 at 1045 by BRUNO MCKAY WNDNU Amended: Links added.
[2018-05-20] MEDS ORDERED: Z GUARD REMEDY 2 OZ OINT TP PRN (11:00)
--- NOTE | 2018-05-20 11:00 | NUR ---
m/s sewing machine attachment tester: notes mary (acnp) here and informed re: speech therapist recommendation with no new order at this time.
--- NOTE | 2018-05-20 12:00 | NUR ---
m/s drain tile machine operator: podiatry consult dr. aiken at bedside manually removed all eschar from the toes. per md, noted healthy, epithelialized skin under. No other open wounds noted. No need for wound care for toes -> resolved Off load heels, A&D to BLE for skin maintenance. order acknowledged.
[2018-05-20] MEDS ORDERED: VITAMINS A AND D 56.7 GM TUBE TP PRN (12:30)
--- NOTE | 2018-05-20 12:30 | NUR ---
m/s accounting support specialist: [facility]
--- NOTE | 2018-05-20 13:30 | NUR ---
m/s back up scan coordinator: nephro f/u seen by dr. muhammad with new orders. pt for hd. pt remains non-verbal. alert to self only. reality orientation provided prn. pt ate 10% for lunch. will continue to monitor.
[2018-05-20 16:00] VITALS: BP 121/89
[2018-05-20] MEDS: COMPLERA PO SCH (17:19)
[2018-05-20] MEDS: Z GUARD REMEDY 2 OZ OINT TP SCH (17:19)
--- NOTE | 2018-05-20 17:20 | NUR ---
m/s dowel setting machine operator: notes micro called and received blood cx result=gram positive cocci in clusters in gram stain. pt is already on merrem, awaiting sensitivity. will continue to monitor. pt for hd. tx.
[2018-05-20] MEDS: RIVAROXABAN 10 MG TABLET PO SCH (17:24)
--- NOTE | 2018-05-20 17:41 | NUR ---
Patient resides at [facility] [phone]. She requires assistance with adl's , she is chair & bedbound. Dialysis center nurse Nurys confirmed - patient receives hemodialysis at [facility] every TTHS @ 1:30pm [phone].[facility] [phone] is HD transportation . Current dc plan is to return to SNF when discharge. Addendum: 05/20/18 at 1743 by JAZIEL PEREZ RN Amended: Links added.
--- NOTE | 2018-05-20 17:50 | NUR ---
m/s bag filler: notes f/u made to rachel (hd) nurse and informed me that ren is doing it and running late, but it will be him as stated. will continue to monitor.
--- NOTE | 2018-05-20 18:35 | NUR ---
m/s ict business analyst: notes mary (acnp) here with ursula (id) and made aware re: blood culture result=GRAM POSITIVE COCCI IN CLUSTERS SEEN ON GRAM STAIN. nehra to see pt for consult.
--- NOTE | 2018-05-20 18:55 | NUR ---
m/s piano mechanic: notes ren (hd nurse) here and preparing pt for hd tx at this time. informed him that we need the blood culture.
--- NOTE | 2018-05-20 19:15 | NUR ---
m/s business analyst: notes report given to vimal (jadyn) for continuity of care. called lab to metal pickling equipment operator blood culture specimen. hd tx started at this time.
--- NOTE | 2018-05-20 19:30 | NUR ---
MS/RN OPENING NOTES PT RESTING IN BED. OPENS EYES SPONTANEOUSLY. ON 2L O2 VIA NC, BREATHING EVEN AND UNLABORED. HD ONGOING AT THIS TIME. IV TO LEFT WRIST PATENT AND INTACT. RCW HD ACCESS IN PLACE. HOB ELEVATED. ASPIRATION PRECAUTIONS IMPLEMENTED. NO SIGNIFICANT CHANGES OVERNIGHT. BED IN LOW/LOCKED POSITION WITH CALL LIGHT IN REACH. SIDE RAILS UPX2. WILL CONTINUE TO MONITOR.
[2018-05-20 20:00] VITALS: BP 146/94
[2018-05-20] MEDS ORDERED: AZITHROMYCIN 600 MG TABLET PO ONE (20:00)
--- NOTE | 2018-05-20 21:30 | NUR ---
MS/RN NOTES HD COMPLETED. DOXLPD=[id number] BP: 145/81, HR: 119. PT NOTED WITH FACIAL GRIMACING AND OCCASIONAL MOANING. WILL ADMINISTER PRN PAIN MEDS
[2018-05-20] MEDS: SULFAMETH/TRIMETH 800/160 MG 1 UDTAB TABLET PO SCH (21:56)
[2018-05-20] MEDS: FLUCONAZOLE (100 MG) 100 MG TABLET PO SCH (21:56)
[2018-05-20] MEDS: ACYCLOVIR 200 MG CAPSULE PO SCH (22:03)
[2018-05-20] MEDS: ACETAMINOPHEN 325 MG TABLET PO PRN (22:04)
[2018-05-21] MEDS: MEROPENEM 500 MG in IV NS 0.9% 50 ML IV SCH ×2 (06:05→17:29)
[2018-05-21] MEDS: PANTOPRAZOLE 40 MG TABLET.DR PO SCH (07:30)
--- NOTE | 2018-05-21 07:30 | NUR ---
MS RN OPENING NOTE RECEIVED PT IN BED, SEMI-FOWLERS. PT IS NON VERBAL WITH SPONTANEOUS EYE OPENING TO TOUCH AND VERBAL STIMULI. NO ACUTE DISTRESS NOTED AT THIS TIME. BREATHING IS EVEN AND UNLABORED ON 2L NC. L HAND #20G IV IS SALINE LOCKED WITHOUT REDNESS OR SWELLING. R UPPER CHEST WALL PERMCATH DRESSING IS CLEAN. DRY AND INTACT. ASPIRATION PRECAUTIONS MAINTAINED. ALL NEEDS ATTENDED TO. BED IS LOCKED AND IN LOWEST POSITION, SIDE RAILS UP X2, BED ALARM ON, CALL LIGHT WITHIN REACH.
--- NOTE | 2018-05-21 07:50 | NUR ---
MS/RN OPENING NOTES PT RESTING IN BED. OPENS EYES SPONTANEOUSLY. ON 2L O2 VIA NC, BREATHING EVEN AND UNLABORED. IV TO LEFT WRIST PATENT AND INTACT. RCW HD ACCESS IN PLACE. HOB ELEVATED. ASPIRATION PRECAUTIONS IMPLEMENTED. NO SIGNIFICANT CHANGES OVERNIGHT. BED IN LOW/LOCKED POSITION WITH CALL LIGHT IN REACH. SIDE RAILS UPX2. WILL ENDORSE TO DAY SHIFT RN LANDON.
[2018-05-21 08:00] VITALS: BP 109/73
[2018-05-21] MEDS: MEGESTROL ACETATE SUSP 400 MG/10 ML UDC PO SCH ×2 (09:00→17:29)
[2018-05-21] MEDS: POTASSIUM CHLORIDE 20 MEQ TAB.PRT.SR PO SCH (09:00)
[2018-05-21] MEDS: PROSOURCE / PROSTAT (PYXIS) 30 ML UDC PO SCH ×3 (09:00→17:00)
[2018-05-21] MEDS: METOPROLOL TARTRATE 50 MG TABLET PO SCH (09:00)
[2018-05-21] MEDS: FOLIC ACID 1 MG TABLET PO SCH (09:00)
[2018-05-21] MEDS: ASPIRIN EC 81 MG TABLET.DR PO SCH (09:00)
[2018-05-21] MEDS: GABAPENTIN 100 MG CAPSULE PO SCH ×2 (09:38→13:35)
[2018-05-21] MEDS: OXYBUTYNIN CHLORIDE 5 MG TABLET PO SCH ×2 (09:38→17:29)
[2018-05-21] MEDS: COMPLERA PO SCH (09:38)
[2018-05-21] MEDS: ACETAMINOPHEN 325 MG TABLET PO PRN (09:39)
[2018-05-21] MEDS: DOCUSATE SODIUM 250 MG CAPSULE PO SCH ×2 (09:39→17:29)
[2018-05-21] MEDS: FAMOTIDINE (20 MG) 20 MG TABLET PO SCH (09:39)
[2018-05-21] MEDS: Z GUARD REMEDY 2 OZ OINT TP SCH (09:40)
--- NOTE | 2018-05-21 10:30 | NUR ---
MS RN NOTE INSURANCE VERIFICATION SPECIALIST UNABLE TO OBTAIN BLOOD DUE PT BEING A HARD STICK. ANOTHER INSURANCE VERIFICATION SPECIALIST TO TRY LATER.
--- NOTE | 2018-05-21 13:35 | NUR ---
MS RN NOTE ADMINISTERED NORCO 5-325MG FOR MODERATE PAIN. PT NOTED TO BE CRYING, MOANING, PRESENCE OF FACIAL GRIMACING, AND SAYING "NO NO NO" WITH MOVEMENT. PT HAD BEEN GIVEN TYLENOL 650MG WITH AM MEDICATIONS PREVIOUSLY. BP: 125/87, HR: 101.
--- NOTE | 2018-05-21 15:02 | NUR ---
MS RN NOTE LABS PER OSCAR IN LAB, ANOTHER SOLE TIER TO ATTEMPT LAB DRAW.
--- NOTE | 2018-05-21 15:34 | NUR ---
MS RN NOTE PERIPHERAL IV FOUND TO BE LEAKING AND PAINFUL WHEN FLUSHED. ATTEMPTED PERIPHERAL IV INSERTION X2 UNSUCCESSFULLY WITH ASSISTANCE FROM ACCU VEIN. LAB STILL ALSO UNABLE TO GET BLOOD DRAW. OBTAINED ORDERS FROM ERASTO POLK NP FOR MIDLINE INSERTION. CHARGE NURSE OSCAR INFORMED NURSING ROOFER.
[2018-05-21 16:00] VITALS: BP 122/84
--- NOTE | 2018-05-21 16:00 | NUR ---
MS RN NOTE PER CHARGE NURSE OSCAR, PICC LINE NURSE WILL ARRIVE AT 6:00PM
--- NOTE | 2018-05-21 16:47 | NUR ---
MS RN NOTE DR. GLASGOW AT THE BEDSIDE. RECEIVED ORDERS TO D/C GABAPENTIN AND NORCO FOR NOW AND TO CONTINUE TO MONITOR DECREASED R ARM WEAKNESS AND PAIN.
--- NOTE | 2018-05-21 17:10 | NUR ---
MS RN NOTE MIDLINE NURSE AT THE BEDSIDE
--- NOTE | 2018-05-21 17:22 | NUR ---
RN MIDLINE INSERTED #18G MIDLINE INSERTED AT THE LEFT UPPER ARM BY NABEEL KAPLAN.
[2018-05-21] MEDS: RIVAROXABAN 10 MG TABLET PO SCH (17:37)
--- NOTE | 2018-05-21 17:55 | NUR ---
MS RN NOTE INFORMED LAB OF MIDLINE ACCESS FOR LABS.
--- NOTE | 2018-05-21 18:15 | NUR ---
MS RN NOTE INFORMED LAB AGAIN REGARDING MIDLINE ACCESS FOR LABS, PER NATANAEL A ACCOUNT MAINTENANCE REPRESENTATIVE WILL BE BY SHORTLY TO ATTEMPT ANOTHER PERIPHERAL STICK AND/OR OBTAIN LABS FROM MIDLINE.
--- NOTE | 2018-05-21 18:52 | NUR ---
MS RN CLOSING NOTE PT IN BED, HIGH-FOWLERS. PT IS NON VERBAL WITH SPONTANEOUS EYE OPENING TO TOUCH AND VERBAL STIMULI. NO ACUTE DISTRESS NOTED AT THIS TIME. BREATHING IS EVEN AND UNLABORED ON 2L NC. L UPPER ARM #18G MIDLINE IS INFUSING ORDERED WITHOUT REDNESS OR SWELLING. R UPPER CHEST WALL PERMCATH DRESSING IS CLEAN. DRY AND INTACT. ASPIRATION PRECAUTIONS MAINTAINED. ALDS PROVIDED AND PT TURNED AND REPOSITION Q2H FOR THE DURATION OF THE SHIFT. ALL NEEDS ATTENDED TO. BED IS LOCKED AND IN LOWEST POSITION, SIDE RAILS UP X2, BED ALARM ON, CALL LIGHT WITHIN REACH. WILL ENDORSE TO FIELD SPEC NURSE FOR CONTINUITY OF CARE.
--- NOTE | 2018-05-21 19:15 | NUR ---
MS RN NOTES RECEIVED ON BED WITH HOB ELEVATED,BREATHING REGULAR,NOT IN ANY FORM OF DISTRESS.O2 AT 2L/NC IN USED,O2 SAT 100%.DVT PUMP IN USED FOR DVT PROPHYLAXIS.WITH LEFT ARM MIDLINE FOR MEDS,WITH RIGHT UPPER CW PERMA CATH FOR HD ACCESS.RIGHT BUTTOCK WOUND WITH MEPILEX IN PLACE.REPOSITION PER PROTOCOL.CALL LIGHT IN REACH,NEEDS ANTICIPATED.
[2018-05-21 20:00] VITALS: BP 135/92
[2018-05-21] MEDS: ACYCLOVIR 200 MG CAPSULE PO SCH (20:43)
[2018-05-21] MEDS: SULFAMETH/TRIMETH 800/160 MG 1 UDTAB TABLET PO SCH (20:43)
[2018-05-21] MEDS: FLUCONAZOLE (100 MG) 100 MG TABLET PO SCH (20:43)
--- NOTE | 2018-05-21 21:00 | NUR ---
MS RN NOTES DUE PO MEDS GIVEN WITH APPLE SAUCE,TAKEN WELL.NEGATIVE FOR ASPIRATION
[2018-05-22] MEDS: MEROPENEM 500 MG in IV NS 0.9% 50 ML IV SCH ×2 (04:53→16:24)
--- NOTE | 2018-05-22 05:00 | NUR ---
MS RN NOTES MORNING CARE RENDERED BY DUDLEY,TOLERATED WELL.
--- NOTE | 2018-05-22 06:49 | NUR ---
MS RN NOTES ON BED A/O X1,STILL WITH LIMITED VERBAL RESPONSE,PAIN TOLERABLE AT THE MOMENT,CALL LIGHT IN REACH,NEEDS ATTENDED.FOR HD TO DAY ORDERED BY DR VALENCIA CONNER.WILL ENDORSE TO DAY NURSE FOR LANDON.
[2018-05-22 07:09] LABS: BASOPHILS % (AUTO) 0.4 % (0.0-2.0); EOSINOPHILS % (AUTO) 0.8 % (0.0-6.0); HEMATOCRIT 34 % (33-45); HEMOGLOBIN 10.6 g/dL (11.5-14.8); LYMPHOCYTES # (AUTO) 2.2 /CMM (0.8-4.8); LYMPHOCYTES % (AUTO) 42.7 % (20.0-44.0); MEAN CORPUSCULAR HGB CONC 31 g/dl (31.0-36.0); MEAN CORPUSCULAR VOLUME 116 fL (82-100); MONOCYTES # (AUTO) 0.4 /CMM (0.1-1.30); MONOCYTES % (AUTO) 7.7 % (2.0-12.0); NEUTROPHILS # (AUTO) 2.5 /CMM (1.8-8.9); NEUTROPHILS % (AUTO) 48.4 % (43.0-81.0); PLATELET COUNT (AUTO) 215 /CMM (150-450); RED BLOOD CELL COUNT(AUTO) 2.92 MIL/uL (4.0-5.2); WHITE BLOOD COUNT (AUTO) 5.1 K/uL (4.3-11.0)
[2018-05-22 07:21] LABS: CALCIUM, SERUM 9.3 mg/dL (8.5-10.1); CREATININE 2.3 mg/dL (0.6-1.3); POTASSIUM 3.7 mmol/L (3.5-5.1)
--- NOTE | 2018-05-22 07:30 | NUR ---
MS RN OPENING NOTE RECEIVED PT IN BED. PT IS NON VERBAL WITH SPONTANEOUS EYE OPENING TO TOUCH AND VERBAL STIMULI AND OCCASIONAL MOANS. NO ACUTE DISTRESS NOTED AT THIS TIME. BREATHING IS EVEN AND UNLABORED ON 2L NC. L UPPER ARM #18G MIDLINE IS PATENT, CLEAN, DRY AND INTACT WITH GOOD BLOOD RETURN. R UPPER CHEST WALL PERMCATH DRESSING IS CLEAN. DRY AND INTACT. ASPIRATION PRECAUTIONS MAINTAINED. ALL NEEDS ATTENDED TO. BED IS LOCKED AND IN LOWEST POSITION, SIDE RAILS UP X2, BED ALARM ON, CALL LIGHT AND POSSESSIONS WITHIN REACH.
[2018-05-22 08:40] VITALS: BP 106/78
[2018-05-22 09:00] VITALS: BP 109/78
[2018-05-22] MEDS: FOLIC ACID 1 MG TABLET PO SCH ×2 (09:00→09:21)
[2018-05-22] MEDS: PROSOURCE / PROSTAT (PYXIS) 30 ML UDC PO SCH ×3 (09:00→16:24)
[2018-05-22] MEDS: METOPROLOL TARTRATE 50 MG TABLET PO SCH (09:00)
[2018-05-22] MEDS: COMPLERA PO SCH (09:21)
[2018-05-22] MEDS: ASPIRIN EC 81 MG TABLET.DR PO SCH (09:21)
[2018-05-22] MEDS: DOCUSATE SODIUM 250 MG CAPSULE PO SCH ×2 (09:21→16:25)
[2018-05-22] MEDS: MEGESTROL ACETATE SUSP 400 MG/10 ML UDC PO SCH ×2 (09:21→16:25)
[2018-05-22] MEDS: FAMOTIDINE (20 MG) 20 MG TABLET PO SCH (09:21)
[2018-05-22] MEDS: OXYBUTYNIN CHLORIDE 5 MG TABLET PO SCH ×2 (09:21→16:25)
[2018-05-22] MEDS: PANTOPRAZOLE 40 MG TABLET.DR PO SCH (09:21)
[2018-05-22] MEDS: Z GUARD REMEDY 2 OZ OINT TP SCH (09:21)
--- NOTE | 2018-05-22 11:20 | NUR ---
MS RN CRITICAL LAB VALUE CRITICAL LAB VALUE REGARDING URINE CULTURE POSITIVE FOR KLEBSIELLA PNEUMONIAE AND PROBABLE CRE REPORTED TO ERASTO POLK NP. NO NEW ORDERS AT THIS TIME. PT ON MERREM AND ID FOLLOWING CASE. INFORMED CHARGE NURSE OSCAR FOR ROOM CHANGE TO INITIATE CONTACT ISOLATION.
--- NOTE | 2018-05-22 11:48 | NUR ---
MS RN NOTE DIALYSIS NURSE AT THE BEDSIDE
--- NOTE | 2018-05-22 12:09 | NUR ---
MS RN NOTE PT TOOK ONE SIP OF PROSTAT AND STATED "NO MORE". INFORMED PT OF RISKS AND BENEFITS, PT STATED "NO".
--- NOTE | 2018-05-22 13:15 | NUR ---
MS RN NOTE HD COMPLETED W/ 1L OUT. VS WNL, R UPPER WALL CHEST PERMCATH DRESSING IS CLEAN, DRY AND INTACT.
--- NOTE | 2018-05-22 14:00 | NUR ---
MS LEES VANCOMYCIN POST HD VANCOMYCIN ADMINISTERED ORDERED.
--- NOTE | 2018-05-22 14:28 | NUR ---
MS RN NOTE PT MOVED TO ROOM 329 TO INITIATE CONTACT ISOLATION
[2018-05-22] MEDS ORDERED: VANCOMYCIN 1 GM in IV D5W 250 ML IV ONE (15:00)
[2018-05-22 16:00] VITALS: BP 132/94
[2018-05-22 16:18] VITALS: BP 132/94
[2018-05-22] MEDS: RIVAROXABAN 10 MG TABLET PO SCH (16:25)
--- NOTE | 2018-05-22 18:23 | NUR ---
MS RN CLOSING NOTE PT IN BED, HIGH-FOWLERS. PT IS ALERT AND ORIENTED X1 WITH SPONTANEOUS EYE OPENING TO TOUCH AND VERBAL STIMULI. NO ACUTE DISTRESS NOTED AT THIS TIME. BREATHING IS EVEN AND UNLABORED ON 2L NC. L UPPER ARM #18G MIDLINE IS INFUSING ORDERED WITHOUT REDNESS OR SWELLING. R UPPER CHEST WALL PERMCATH DRESSING IS CLEAN. DRY AND INTACT. ASPIRATION AND CONTACT PRECAUTIONS MAINTAINED. ALDS PROVIDED AND PT TURNED AND REPOSITION Q2H FOR THE DURATION OF THE SHIFT. WOUND CARE PROVIDED ORDERED. ALL NEEDS ATTENDED TO. BED IS LOCKED AND IN LOWEST POSITION, SIDE RAILS UP X2, BED ALARM ON, CALL LIGHT WITHIN REACH. WILL ENDORSE TO LANDSCAPE HORTICULTURE INSTRUCTOR NURSE FOR CONTINUITY OF CARE.
--- NOTE | 2018-05-22 19:37 | NUR ---
MS RN OPENING NOTES: RECEIVED PT ON 2LPM VIA NC AND IS TOLERATING WELL. PT IS A/OX1 AND IS SITTING UP IN BED WATCHING TELEVISION. PT HAS R CHEST WALL PERMACATH AND IS INTACT. PT HAS GAIL #18GMIDLINE AND IS PATENT AND INTACT. CURRENTLY H/L. NOTED THAT PT CANNOT RESULTS ENGINEER/SQUEEZE WITH R ARM. BED KEPT IN LOW, LOCKED POSITION, AND SIDE RAILS X 2UP. WILL CONTINUE TO MONITOR PT.
[2018-05-22 20:00] VITALS: BP 109/76
[2018-05-22] MEDS: ACYCLOVIR 200 MG CAPSULE PO SCH (20:39)
[2018-05-22] MEDS: FLUCONAZOLE (100 MG) 100 MG TABLET PO SCH (20:39)
[2018-05-22] MEDS: SULFAMETH/TRIMETH 800/160 MG 1 UDTAB TABLET PO SCH (20:39)
[2018-05-23] MEDS: ACETAMINOPHEN 325 MG TABLET PO PRN (00:41)
--- NOTE | 2018-05-23 00:46 | NUR ---
MS RN NOTES: PT COMPLAINING OF R ARM MILD PAIN. PT WAS ADMINISTERED TYLENOL 650MG PO. WILL CONTINUE TO MONITOR.
[2018-05-23] MEDS: MEROPENEM 500 MG in IV NS 0.9% 50 ML IV SCH ×2 (04:08→17:50)
[2018-05-23] MEDS ORDERED: VANCOMYCIN 500 MG in IV D5W 100 ML IV PRN (06:00)
--- NOTE | 2018-05-23 07:30 | NUR ---
MS RN CLOSING NOTES: ALL NEEDS WERE ATTENDED AND ANTICIPATED FOR. PT KEPT CLEAN, DRY, AND COMFORTABLE. PT TURNED AND REPOSITIONED Q 2HRS. PT REMAINS ON 2LPM VIA NC AND IS TOLERATING WELL. ALTHOUGH PT PLAYS WITH NASAL CANNULA AT TIMES. PT HAS BILATERAL SCD PUMPS IN PLACE. R ARM REMAINS WEAK AND PT UNABLE TO EDITOR PUBLICATIONS/USE. PT HAS L ARM #18G MIDLINE AND IS PATENT AND INTACT. CURRENTLY H/L. PT ALSO HAS R CHEST WALL PERMACATH AND IS INTACT. BED KEPT IN LOW, LOCKED POSITION, AND SIDE RAILS X 2UP. ENDORSED TO AM NURSE FOR LANDON.
--- NOTE | 2018-05-23 07:37 | NUR ---
MS RN OPENING NOTE RECEIVED PT IN BED. PT IS ALERT AND ORIENTED X1, EYES OPEN SPONTANEOUSLY TO TOUCH AND VERBAL STIMULI, PT ABLE TO MAKE BASIC NEEDS KNOWN. PT DENIES PAIN, NO ACUTE DISTRESS NOTED AT THIS TIME. BREATHING IS EVEN AND UNLABORED ON 2L NC. L UPPER ARM #18G MIDLINE IS PATENT, CLEAN, DRY AND INTACT WITH GOOD BLOOD RETURN. R UPPER CHEST WALL PERMCATH DRESSING IS CLEAN. DRY AND INTACT. ASPIRATION PRECAUTIONS MAINTAINED. ALL NEEDS ATTENDED TO. BED IS LOCKED AND IN LOWEST POSITION, SIDE RAILS UP X2, BED ALARM ON, CALL LIGHT AND POSSESSIONS WITHIN REACH.
[2018-05-23 08:00] VITALS: BP 151/100
[2018-05-23] MEDS: FAMOTIDINE (20 MG) 20 MG TABLET PO SCH (09:07)
[2018-05-23] MEDS: COMPLERA PO SCH (09:07)
[2018-05-23] MEDS: PANTOPRAZOLE 40 MG TABLET.DR PO SCH (09:07)
[2018-05-23] MEDS: PROSOURCE / PROSTAT (PYXIS) 30 ML UDC PO SCH ×3 (09:07→17:50)
[2018-05-23] MEDS: MEGESTROL ACETATE SUSP 400 MG/10 ML UDC PO SCH ×2 (09:07→17:50)
[2018-05-23] MEDS: OXYBUTYNIN CHLORIDE 5 MG TABLET PO SCH ×2 (09:08→17:50)
[2018-05-23] MEDS: ASPIRIN EC 81 MG TABLET.DR PO SCH (09:08)
[2018-05-23] MEDS: Z GUARD REMEDY 2 OZ OINT TP SCH (09:08)
[2018-05-23] MEDS: DOCUSATE SODIUM 250 MG CAPSULE PO SCH ×2 (09:08→17:50)
[2018-05-23] MEDS: METOPROLOL TARTRATE 50 MG TABLET PO SCH (09:08)
[2018-05-23] MEDS: FOLIC ACID 1 MG TABLET PO SCH (09:08)
[2018-05-23 10:00] VITALS: BP 122/82
[2018-05-23 10:11] LABS: *ABSOLUTE CD 4 HELPER 858 /uL (359-1519); *ABSOLUTE CD 8 SUPPRESSOR 1056 /uL (109-897); *CD4/CD8 RATIO 0.81 (0.92-3.72)
[2018-05-23 16:00] VITALS: BP 145/94
[2018-05-23] MEDS: RIVAROXABAN 10 MG TABLET PO SCH (17:51)
--- NOTE | 2018-05-23 19:17 | NUR ---
MS RN OPENING NOTES: RECEIVED PT PLAYING WITH HER NASAL CANNULA AND REINFORCED IT IN HER NARES. PT A/OX2/ PT ON 2LPM VIA NC AND IS TOLERATING WELL. MIDLINE REMAINS INTACT. CURRENTLY H/L. PT ON BILATERAL SCD PUMPS IN PLACE. BED ALARM NOT WORKING. R CHEST WALL PERMACATH INTACT. BED KEPT IN LOW, LOCKED POSITION, AND SIDE RAILS X 2UP. WILL CONTINUE TO MONITOR PT.
--- NOTE | 2018-05-23 19:25 | NUR ---
MS RN CLOSING NOTE PT IN BED, HIGH-FOWLERS. PT IS ALERT AND ORIENTED X1 WITH SPONTANEOUS EYE OPENING TO TOUCH AND VERBAL STIMULI. NO ACUTE DISTRESS NOTED AT THIS TIME. BREATHING IS EVEN AND UNLABORED ON 2L NC. L UPPER ARM #18G MIDLINE IS INFUSING ORDERED WITHOUT REDNESS OR SWELLING. R UPPER CHEST WALL PERMCATH DRESSING IS CLEAN. DRY AND INTACT. ASPIRATION AND CONTACT PRECAUTIONS MAINTAINED. ALDS PROVIDED AND PT TURNED AND REPOSITION Q2H FOR THE DURATION OF THE SHIFT. WOUND CARE PROVIDED ORDERED. ALL NEEDS ATTENDED TO. BED IS LOCKED AND IN LOWEST POSITION, SIDE RAILS UP X2, BED ALARM ON, CALL LIGHT WITHIN REACH. WILL ENDORSE TO OSCILLOGRAPH TECHNICIAN NURSE FOR CONTINUITY OF CARE.
[2018-05-23 20:00] VITALS: BP 125/93
[2018-05-24] MEDS: MEROPENEM 500 MG in IV NS 0.9% 50 ML IV SCH ×2 (04:04→17:59)
--- NOTE | 2018-05-24 07:02 | NUR ---
MS RN CLOSING NOTES: ALL NEEDS WERE ATTENDED AND ANTICIPATED FOR. PT ON 2LPM VIA NC BUT KEEPS TAKING IT OFF FROM TIME TO TIME. MIDLINE REMAINS INTACT. CURRENTLY H/L. R CHEST WALL PERMACATH REMAINS INTACT. BILATERAL SCD PUMPS IN PLACE. BED KEPT IN LOW, LOCKED POSITION, AND SIDE RAILS X 2UP. PT TURNED AND REPOSITIONED Q2HR ORDERED. WOUND TX PERFORMED ORDERED. WILL ENDORSE TO AM NURSE FOR LANDON.
--- NOTE | 2018-05-24 07:15 | NUR ---
MS RN OPENING NOTES: RECEIVED PT IN BED AWAKE RESTING WITH NC. PT ON 2LPM VIA NC AND IS TOLERATING WELL. PT AOX2. MIDLINE REMAINS INTACT. PT WITH BILATERAL SCD PUMPS ON. BED ALARM NOT WORKING AT THIS TIME. R CHEST WALL PERMACATH INTACT. BED KEPT IN LOW, LOCKED POSITION, WITH SIDE RAILS X 2UP. CALL LIGHT WITHIN REACH. WILL CONTINUE TO MONITOR.
[2018-05-24 08:00] VITALS: BP 153/91
[2018-05-24] MEDS: PANTOPRAZOLE 40 MG TABLET.DR PO SCH (08:18)
[2018-05-24] MEDS: FOLIC ACID 1 MG TABLET PO SCH (08:19)
[2018-05-24] MEDS: OXYBUTYNIN CHLORIDE 5 MG TABLET PO SCH ×2 (08:19→16:44)
[2018-05-24] MEDS: ASPIRIN EC 81 MG TABLET.DR PO SCH (08:19)
[2018-05-24] MEDS: METOPROLOL TARTRATE 50 MG TABLET PO SCH (08:19)
[2018-05-24] MEDS: DOCUSATE SODIUM 250 MG CAPSULE PO SCH ×2 (08:19→16:44)
[2018-05-24] MEDS: MEGESTROL ACETATE SUSP 400 MG/10 ML UDC PO SCH ×2 (08:19→16:46)
[2018-05-24] MEDS: FAMOTIDINE (20 MG) 20 MG TABLET PO SCH (08:19)
[2018-05-24] MEDS: COMPLERA PO SCH (08:21)
[2018-05-24] MEDS: PROSOURCE / PROSTAT (PYXIS) 30 ML UDC PO SCH ×3 (08:22→16:45)
[2018-05-24] MEDS: Z GUARD REMEDY 2 OZ OINT TP SCH (08:23)
[2018-05-24 16:00] VITALS: BP 136/93
[2018-05-24] MEDS: RIVAROXABAN 10 MG TABLET PO SCH (16:45)
--- NOTE | 2018-05-24 19:20 | NUR ---
MS/RN - CLOSING NOTES PATIENT IN NO ACUTE DISTRESS, HD TREATMENT DONE, 500 ML REMOVED, TOLERATED WELL. PATIENT FOR DISCHARGE TONIGHT AFTER VANCO IV INFUSION. AMBULANCE ETA 2100. DISCHARGE PAPERS COMPLETED. PATIENT REFUSED PHOTO TO BE TAKEN ON SKIN BREAKDOWN, BECAME COMBATIVE. ENDORSED TO NIGHT RN FOR ACCORDINGLY.
--- NOTE | 2018-05-24 19:30 | NUR ---
RN MS OPENING NOTES RECEIVED PATIENT IN BED. ALERT AND ORIENTED X1, VERBALLY RESPONSIVE, CONFUSED. BREATHING EVEN AND UNLABORED. NO SOB NOTED. TOLERATING ROOM AIR. NO S/S OF PAIN OR DISCOMFORT. NO FACIAL GRIMACING. IV ON LEFT UPPER ARM INTACT AND PATENT. SKIN DRY AND WARM TO TOUCH. AFEBRILE. CURRENTLY RECEIVING DIALYSIS. FOR DISCHARGE AFTER DIALYSIS BACK TO [facility]. ALL OTHER NEEDS ATTENDED TO. SAFETY MEASURES IN PLACE. CALL LIGHT WITHIN REACH. WILL CONTINUE TO MONITOR.
--- NOTE | 2018-05-24 19:35 | NUR ---
RN MS NOTES PATIENT IS STATUS POST DIALYSIS WITH 500CC OF FLUIDS OUT. PATIENT IS IN STABLE CONDITION. NO BLEEDING FROM RCW. DRESSING INTACT. WILL CONTINUE TO MONITOR.
--- NOTE | 2018-05-24 19:53 | NUR ---
RN MS NOTES VANCOMYCIN 500MG IV GIVEN POST HD. WILL CONTINUE TO MONITOR.
--- NOTE | 2018-05-24 20:01 | NUR ---
RN MS NOTES REPORT GIVEN TO NABEEL GUZMAN FROM [facility].
[2018-05-24 20:49] VITALS: BP 125/92
--- NOTE | 2018-05-24 21:00 | NUR ---
RN MS DISCHARGE NOTES PATIENT DISCHARGED BACK TO [facility] VIA GURNEY WITH [place]. PATIENT WAS IN STABLE CONDITION. BREATHING EVEN AND UNLABORED. NO SOB NOTED. TOLERATING ROOM AIR. NO COMPLAINTS OF PAIN OR DISCOMFORT. NO FACIAL GRIMACING. MIDLINE ON LEFT UPPER ARM INTACT AND PATENT AND IS TO BE KEPT TO CONTINUE ANTIBIOTICS AT [facility]. SKIN DRY AND WARM TO TOUCH. AFEBRILE. ABLE TO TAKE PICTURES OF UPPER EXTREMITIES, CHEST, BILATERAL FEET, AND FACE BUT NOT SACRAL/BUTTOCKS DUE TO PATIENT REFUSING TO BE TURNED. ATTEMPTED THREE TIMES BUT PATIENT BECAME FEISTY. ALL DISCHARGE PAPER WORKS SENT WITH PATIENT - WITH ANOTHER RN SIGNED WITNESSED BECAUSE PATIENT IS UNABLE TO SIGN. ALL BELONGINGS ACCOUNTED FOR - INVENTORY LIST SIGNED WITH ANOTHER RN A WITNESS. ALL HOME MEDICATIONS RETRIEVED FROM PHARMACY AND SENT WITH PATIENT. KEPT CLEAN AND DRY PRIOR TO DISCHARGE. DRESSING ON RCW PERMACATH DRY AND INTACT. REPORT GIVEN TO NABEEL GUZMAN FROM [facility]. PATIENT LEFT AT 2100.
[2018-05-26 21:06] LABS: *BASOS 1; *EOS 0; *HCT 34.1; *HGB 10.2; *LYMPHOCYTES 41; *LYMPHS, ABSOLUTE 2.2; *MCH 34.8; *MCHC 29.9; *MCV 116; *MONOCYTES 8; *MONOS, ABSOLUTE 0.4; *NEUTROPHILS 50; *NEUTROPHILS, ABSOLUTE 2.7 x10E3/uL; *PLT 214; *RBC 2.93; *RDW 14.7
[2018-05-26 21:09] LABS: *IMMATURE GRANULOCYTES 0 %
== END 2018-05-24 20:55 | DRG 720 ==
LOC: ER 11:57 → TELE 13:44 → MED 05-20 08:51
PROVIDERS: ADMIT Nurse Practitioner Acute Care; ATTEND Registered Nurse
DX: A41.9 Sepsis, unspecified organism (principal); E43 Unspecified severe protein-calorie malnutrition; L89.150 Pressure ulcer of sacral region, unstageable; G92 Toxic encephalopathy; N17.9 Acute kidney failure, unspecified; R53.2 Functional quadriplegia; J15.9 Unspecified bacterial pneumonia; I12.0 Hypertensive chronic kidney disease with stage 5 chronic kidney disease or end stage renal disease; N18.6 End stage renal disease; D68.69 Other thrombophilia; N39.0 Urinary tract infection, site not specified; Z99.2 Dependence on renal dialysis; F32.9 Major depressive disorder, single episode, unspecified; R23.4 Changes in skin texture; I73.9 Peripheral vascular disease, unspecified; L85.3 Xerosis cutis; K21.9 Gastro-esophageal reflux disease without esophagitis; D53.9 Nutritional anemia, unspecified; K46.9 Unspecified abdominal hernia without obstruction or gangrene; B96.1 Klebsiella pneumoniae [K. pneumoniae] as the cause of diseases classified elsewhere; Z16.24 Resistance to multiple antibiotics; E78.5 Hyperlipidemia, unspecified; E83.39 Other disorders of phosphorus metabolism; E86.1 Hypovolemia; I25.10 Atherosclerotic heart disease of native coronary artery without angina pectoris; J44.0 Chronic obstructive pulmonary disease with (acute) lower respiratory infection; M20.41 Other hammer toe(s) (acquired), right foot; Z79.01 Long term (current) use of anticoagulants; Z79.82 Long term (current) use of aspirin; Z86.718 Personal history of other venous thrombosis and embolism; Z87.440 Personal history of urinary (tract) infections
CPT/HCPCS: 36415; 36569; 71045-TC; 80048-TC; 80061-TC; 80076-TC; 80202-TC; 81000-TC; 83605-TC; 83735-TC; 84100-TC; 84484-TC; 85025-TC; 85730-TC; 86360; 87040-TC; 87081-TC; 87086-TC; 87186-TC; 90935-TC; 92521; 92526; A4216; G0378; J2185; J3370; J7030; J7040; J7050; J7060

== ENCOUNTER 2019-02-25 14:11 | Inpatient (IN) | payer OTHER ==
[~2019-02-25] VITALS: Ht 177.8 cm; Wt 86.2 kg
[~2019-02-25 14:11] MED LIST changes: +ALBU1.257 IH; -ALBU2.5V38 IH; +AMIN30LI2 PO; +HYDR-3974 PO; -MULT-1094 PO; +NAPH1POW3 PO; -OXYB5TAB11 PO; +OXYB5TAB16 PO
--- NOTE | 2019-02-25 14:19 | NUR ---
"[id number], C/O [place]AK[place] & [place] [facility] [place], BP 70/47" pt aaox4, -sob, nad noted, pending md briscoe
[2019-02-25] MEDS ORDERED: FLUO-120 PO (14:57)
[2019-02-25] MEDS ORDERED: FOLI0.8T2 PO (14:57)
[2019-02-25] MEDS ORDERED: ACET-868 PO (14:57)
[2019-02-25] MEDS ORDERED: MINE133E RC (14:57)
[2019-02-25 15:39] LABS: BASOPHILS % (AUTO) 0.3 % (0.0-2.0); EOSINOPHILS % (AUTO) 1.3 % (0.0-6.0); HEMATOCRIT 35 % (33-45); HEMOGLOBIN 11.6 g/dL (11.5-14.8); LYMPHOCYTES # (AUTO) 2.9 /CMM (0.8-4.8); LYMPHOCYTES % (AUTO) 45.8 % (20.0-44.0); MEAN CORPUSCULAR HGB CONC 33 g/dl (31.0-36.0); MEAN CORPUSCULAR VOLUME 115 fL (82-100); MONOCYTES # (AUTO) 0.5 /CMM (0.1-1.30); MONOCYTES % (AUTO) 7.6 % (2.0-12.0); NEUTROPHILS # (AUTO) 2.8 /CMM (1.8-8.9); PLATELET COUNT (AUTO) 218 /CMM (150-450); RED BLOOD CELL COUNT(AUTO) 3.04 MIL/uL (4.0-5.2); WHITE BLOOD COUNT (AUTO) 6.3 K/uL (4.3-11.0)
[2019-02-25 15:56] LABS: CARBON DIOXIDE 22 mmol/L (21-32); CHLORIDE 105 mmol/L (98-107); CREATININE 2.7 mg/dL (0.6-1.3); GLUCOSE 103 mg/dL (74-106); POTASSIUM 3.5 mmol/L (3.5-5.1); SODIUM SERUM 136 mmol/L (136-145); UREA NITROGEN, BLOOD 23 mg/dL (7-18)
--- NOTE | 2019-02-25 16:18 | NUR ---
Dr. Sykes called back and speaking to Italo LEMA.
--- NOTE | 2019-02-25 16:18 | NUR ---
called [facility] for admission.
[2019-02-25] MEDS ORDERED: ONDANSETRON HCL/PF 4 MG/2 ML VIAL IVP PRN (17:00)
[2019-02-25] MEDS ORDERED: HYDROCODONE/APAP 5/325MG 1 EACH TABLET PO PRN (17:00)
[2019-02-25] MEDS ORDERED: MINERAL OIL 133 ML (PYXIS) 1 EA ENEMA RC PRN (17:00)
[2019-02-25] MEDS ORDERED: MAG HYDROX/AL HYDROX/SIMETH 30 ML UDC PO PRN ×2 (17:00)
[2019-02-25] MEDS ORDERED: MAGNESIUM HYDROXIDE 30 ML UDC PO PRN ×2 (17:00)
[2019-02-25] MEDS ORDERED: Z GUARD REMEDY 2 OZ OINT TP PRN (17:00)
[2019-02-25] MEDS ORDERED: IPRATROPIUM NEB FS 0.5 MG/2.5 ML AMPUL.NEB IH PRN (17:00)
[2019-02-25 17:28] LABS: BAND % (MANUAL) 2 % (0.0-5.0); EOSINOPHILS % (MANUAL) 1 % (0-4); LYMPHOCYTES % (MANUAL) 41 % (16-48); MONOCYTES % (MANUAL) 6 % (0-11.0); NEUTROPHILS % (MANUAL) 47 (42-76); REACTIVE LYMPHOCYTES 3 % (0-0)
--- NOTE | 2019-02-25 17:30 | NUR ---
CALLED NURSING MEDICAL WRITER FOR TELE BED.
--- NOTE | 2019-02-25 18:45 | NUR ---
unable to give report at this time, will call back after 7
--- NOTE | 2019-02-25 19:24 | NUR ---
report given to yoon salamanca for refugio pt will be transported to 1st floor tele
[2019-02-25] MEDS ORDERED: VANCOMYCIN 1 GM in IV NS 0.9% 250 ML IV SCH (19:30)
[2019-02-25 20:07] VITALS: BP 102/69
--- NOTE | 2019-02-25 20:15 | NUR ---
INSULATION BOARD HEAD SAW OPERATOR NOTE PATIENT RECEIVED FROM ER IN [facility]. PATIENT DROWSY A/O X 2-3. GIVEN BED BATH AND DIAPER CHANGE GIVEN. PATIENT NOTED TO HAVE FLAKY SKIN ON THE SACRUM AND ELIOT HEEL REDNESS. WOUND CONSULT PLACED. PATIENT V/S WNL AND DENIES SOB/ CHEST PAIN/ DISCOMFORT. PATIENT HR SR ON THE MONITOR. PLAN OF CARE AND GOALS DISCUSSED WITH PATIENT. INSTRUCTIONS GEOTHERMAL PLANT MANAGER LIGHT GIVEN. PATIENT VERBALIZE UNDERSTANDING. PATIENT LAC 18 G PATENT AND INTACT. NO S/S OF INFILTRATION OR INFECTION. ASPIRATION PRECAUTIONS IN PLACE. SAFETY PRECAUTIONS IN PLACE. CALL LIGHT WITHIN REACH SIDE RAILS UP X 2. RN WILL CONTINUE TO MONITOR FOR CHANGES.
[2019-02-25] MEDS ORDERED: PIPERACILLIN /TAZOBACTAM 2.25 G VIAL IV ONE (20:19)
[2019-02-25] MEDS ORDERED: VANCOMYCIN 1 GM VIAL ONE (20:19)
[2019-02-25] MEDS: GABAPENTIN 100 MG CAPSULE PO SCH (20:22)
[2019-02-25] MEDS: OXYBUTYNIN CHLORIDE 5 MG TABLET PO SCH (20:22)
[2019-02-25] MEDS: DOCUSATE SODIUM 250 MG CAPSULE PO SCH (20:22)
[2019-02-25] MEDS: PIPERACILLIN /TAZOBACTAM 2.25 G in IV D5W 50 ML IV SCH (20:23)
--- NOTE | 2019-02-25 23:32 | NUR ---
BLUING OVEN TENDER NOTE PATIENT NOTED TO BE BRADYCARDIC DURING SLEEP. PATIENT EASILY AROUSABLE AND HR TRENDS BACK UP WHEN AWAKING
[2019-02-26] VITALS: BP 110/42
[2019-02-26 04:00] VITALS: BP 90/51
[2019-02-26] MEDS ORDERED: PIPERACILLIN /TAZOBACTAM 2.25 G VIAL IV ONE (05:07)
[2019-02-26] MEDS: PIPERACILLIN /TAZOBACTAM 2.25 G in IV D5W 50 ML IV SCH ×3 (05:14→21:37)
[2019-02-26 06:57] LABS: BASOPHILS % (AUTO) 0.7 % (0.0-2.0); EOSINOPHILS % (AUTO) 1.5 % (0.0-6.0); HEMATOCRIT 32 % (33-45); HEMOGLOBIN 10.7 g/dL (11.5-14.8); LYMPHOCYTES # (AUTO) 2.4 /CMM (0.8-4.8); LYMPHOCYTES % (AUTO) 48.4 % (20.0-44.0); MEAN CORPUSCULAR HGB CONC 34 g/dl (31.0-36.0); MEAN CORPUSCULAR VOLUME 115 fL (82-100); MONOCYTES # (AUTO) 0.4 /CMM (0.1-1.30); MONOCYTES % (AUTO) 8.2 % (2.0-12.0); NEUTROPHILS # (AUTO) 2.1 /CMM (1.8-8.9); NEUTROPHILS % (AUTO) 41.2 % (43.0-81.0); PLATELET COUNT (AUTO) 166 /CMM (150-450); RED BLOOD CELL COUNT(AUTO) 2.75 MIL/uL (4.0-5.2)
[2019-02-26] MEDS ORDERED: FEE PK DOSING 1 MIN EA MC ONE (07:06)
[2019-02-26 07:21] LABS: CALCIUM, SERUM 8.6 mg/dL (8.5-10.1); MAGNESIUM 1.9 mg/dL (1.8-2.4); POTASSIUM 3.1 mmol/L (3.5-5.1)
[2019-02-26] MEDS ORDERED: VANCOMYCIN 500 MG in IV D5W 100 ML IV PRN (07:30)
--- NOTE | 2019-02-26 07:38 | NUR ---
CHUCK WAGON DRIVER NOTE RECEIVED PATIENT IN BED, PATENT ALERT AWAKE, ON TELE MONITOR SB HR 59 , HD CATH ON RT CW , LAC HL INTACT , BED IN LOWEST AND LOCKED POSITION , CALL LIGHT WITHIN REACH , PLAN OF CARE DISCUSSED WITH PATIENT , ON RA SAT 99% , WILL MONITOR BP , DR ROMEO AT BEDSIDE AWARE AWARE THAT ON RT ARM RIGO 77/58 AND ON RT THIGH 97/46 STATED THAT POLICE SUPERINTENDENT WILL COME TODAY AND WILL ADJUST IF NEED FLUIDS Addendum: 02/26/19 at 0954 by NICA MIMS RN dr romeo aware k 3.1 stated that patient on hd site technician will adjust
[2019-02-26 08:00] VITALS: BP 97/46
[2019-02-26] MEDS: OXYBUTYNIN CHLORIDE 5 MG TABLET PO SCH ×2 (09:19→16:35)
[2019-02-26] MEDS: POLYETHYLENE GLYCOL 3350 17 GM POWD.PACK PO SCH (09:19)
[2019-02-26] MEDS: DOCUSATE SODIUM 250 MG CAPSULE PO SCH ×2 (09:19→16:35)
[2019-02-26] MEDS: FLUOXETINE HCL 20 MG CAPSULE PO SCH (09:20)
[2019-02-26] MEDS: GABAPENTIN 100 MG CAPSULE PO SCH ×3 (09:20→16:35)
[2019-02-26] MEDS: ASPIRIN EC 81 MG TABLET.DR PO SCH (09:20)
[2019-02-26] MEDS: FAMOTIDINE (20 MG) 20 MG TABLET PO SCH (09:20)
[2019-02-26] MEDS: FOLIC ACID 1 MG TABLET PO SCH (09:20)
--- NOTE | 2019-02-26 10:48 | NUR ---
ASSEMBLY LEADER NOTE DR PARRISH EVP [employer] LEADERSHIP NOTIFIED THAT K 3.1 AND EARLIER BP 77/58 STATED THAT WILL CHECK IT OUT
--- NOTE | 2019-02-26 11:46 | NUR ---
telecommunications technician note ua collected as ordered
[2019-02-26 12:00] VITALS: BP 90/45
[2019-02-26] MEDS ORDERED: POTASSIUM CHLORIDE 20 MEQ TAB.PRT.SR PO ONE (12:00)
[2019-02-26 12:22] LABS: APPEARANCE,URINE CLOUDY (CLEAR); BILIRUBIN,URINE NEGATIVE (NEGATIVE); BLOOD, URINE LARGE Ery/uL (NEGATIVE); COLOR,URINE YELLOW (YELLOW); KETONES,URINE NEGATIVE (NEGATIVE); LEUKOCYTE ESTERASE ,URINE MODERATE (NEGATIVE); NITRITE, URINE NEGATIVE (NEGATIVE); PROTEIN,URINE 100 mg/dl (NEGATIVE); UGLUCOSE 500 MG/DL mg/dL (NEGATIVE); UROBILINOGEN,URINE 0.2 EU/dL (0.2)
[2019-02-26 12:34] LABS: BACTERIA,URINE 2+ /HPF (None Seen); WBC,URINE TOO NUMEROUS TO COUN /HPF (0-3)
--- NOTE | 2019-02-26 14:11 | NUR ---
REGISTERED NURSE CARDIAC TELEMETRY NOTE ON HD ORDERED
--- NOTE | 2019-02-26 15:34 | NUR ---
PHOTOGRAPHER STILL NOTE HD COMPLETED, NO FLUIDS OUT, BP 82/47, NOT IN DISTRESS ,WILL MONITOR
[2019-02-26] MEDS: COMPLERA PO SCH (15:38)
[2019-02-26 16:00] VITALS: BP_SYST 88; BP_DIAS 45; BP_DIAS 46
--- NOTE | 2019-02-26 18:25 | NUR ---
RESTAURANT ATTENDANT NOTE NEW HL ON RT FA MARYA 24 INSERTED WITH GOOD BLOOD RETURN
--- NOTE | 2019-02-26 19:20 | NUR ---
REHABILITATION INSPECTOR NOTE, PATIENT RECEIVED IN BED, AWAKE A/O ABLE TO VERBALIZED NEEDS, FINISHING DINNER AT THIS TIME, NO SOB/ACUTE DISTRESS NOTED, AT ROOM AIR, DENIES LION OR DISCOMFORT AT THI TIME, NSR ON TELE MONITOR WITH RH IN THE 80S AT THIS TIME, RIGHT FA 22G PATENT AND INTACT, NO S/S OF INFILTRATION OR ABNORMALITY NOTED, EDUCATED TO USE CALL LIGHT FOR ASSISTANCE, CALL LIGHT W/I REACH, HOB ELEVATED, ON SITTING POSITION AT THIS TIME, ASPIRATION AND SAFETY PRECAUTIONS IN PLACE, BILATERAL S/R OF BED UP FOR REPOSITIONING, WILL CONTINUE TO MONITOR CLOSELY.
[2019-02-26 20:00] VITALS: BP 101/56
[2019-02-26] MEDS: VIT B CMPLX 3/FA/VIT C/BIOTIN 1 TAB TABLET PO SCH (21:37)
[2019-02-27] VITALS: BP 91/49
[2019-02-27 04:00] VITALS: BP 90/40
[2019-02-27] MEDS: PIPERACILLIN /TAZOBACTAM 2.25 G in IV D5W 50 ML IV SCH (04:39)
[2019-02-27 06:21] LABS: BASOPHILS % (AUTO) 0.5 % (0.0-2.0); EOSINOPHILS % (AUTO) 1.5 % (0.0-6.0); HEMATOCRIT 31 % (33-45); HEMOGLOBIN 10.7 g/dL (11.5-14.8); LYMPHOCYTES # (AUTO) 2.1 /CMM (0.8-4.8); LYMPHOCYTES % (AUTO) 48.9 % (20.0-44.0); MEAN CORPUSCULAR HGB CONC 34 g/dl (31.0-36.0); MEAN CORPUSCULAR VOLUME 114 fL (82-100); MONOCYTES # (AUTO) 0.3 /CMM (0.1-1.30); MONOCYTES % (AUTO) 7.9 % (2.0-12.0); NEUTROPHILS # (AUTO) 1.7 /CMM (1.8-8.9); NEUTROPHILS % (AUTO) 41.2 % (43.0-81.0); PLATELET COUNT (AUTO) 163 /CMM (150-450); RED BLOOD CELL COUNT(AUTO) 2.76 MIL/uL (4.0-5.2); WHITE BLOOD COUNT (AUTO) 4.2 K/uL (4.3-11.0)
[2019-02-27 06:36] LABS: ALBUMIN 2.1 g/dL (3.4-5.0); BILIRUBIN,TOTAL 0.6 mg/dL (0.2-1.0); CALCIUM, SERUM 8.2 mg/dL (8.5-10.1); CREATININE 2.5 mg/dL (0.6-1.3); MAGNESIUM 1.8 mg/dL (1.8-2.4); PHOSPHORUS 2.1 mg/dL (2.5-4.9); POTASSIUM 3.7 mmol/L (3.5-5.1); TOTAL PROTEIN, SERUM 5.7 g/dL (6.4-8.2)
--- NOTE | 2019-02-27 06:55 | NUR ---
SILK SCREEN PRINTER HELPER NOTES, PATIENT IN BED ASLEEP BUT EASILY AROUSES TO VERBAL STIMULI, BREATHING EVEN AND UNLABORED, NO SOB/ACUTE DISTRESS NOTED, NO SIGNIFICANT CHANGE IN CONDITION DURING THE NIGHT, WILL ENDORSE CONTINUITY OF CARE TO ONCOMING NURSE.
--- NOTE | 2019-02-27 07:51 | NUR ---
RN OPENING NOTES RECEIVED PATIENT SLEEPING IN BED, EASILY AROUSED. SHE IS AOX3, VERBAL, AND ON BEDREST. TELE MONITOR SHOWING SR. NO EDEMA IS PRESENT. NO SOB OR RESP DISTRESS NOTED DURING ASSESSMENT. PT DENIES ANY PAIN AT THIS TIME. SHE HAS A RFA 22G SL. SKIN IS INTACT, REDNESS ON SACRUM AND BILATERAL HEELS. BP TAKEN ON LEG WAS 70/58, PT IS ASYMPTOMATIC. SAFETY MEASURES HAVE BEEN IMPLEMENTED, CALL LIGHT IS WITHIN REACH, BED IS IN LOWEST AND LOCKED POSITION, SIDE RIALS UP X2, WILL CONTINUE TO MONITOR FOR ANY CHANGES.
[2019-02-27 08:00] VITALS: BP 78/42
[2019-02-27] MEDS: FLUOXETINE HCL 20 MG CAPSULE PO SCH (08:20)
[2019-02-27] MEDS: FOLIC ACID 1 MG TABLET PO SCH (08:20)
[2019-02-27] MEDS: FAMOTIDINE (20 MG) 20 MG TABLET PO SCH (08:21)
[2019-02-27] MEDS: ASPIRIN EC 81 MG TABLET.DR PO SCH (08:21)
[2019-02-27] MEDS: GABAPENTIN 100 MG CAPSULE PO SCH ×3 (08:21→16:45)
[2019-02-27] MEDS: DOCUSATE SODIUM 250 MG CAPSULE PO SCH ×2 (08:25→16:49)
[2019-02-27] MEDS: OXYBUTYNIN CHLORIDE 5 MG TABLET PO SCH ×2 (09:50→16:45)
[2019-02-27] MEDS: POLYETHYLENE GLYCOL 3350 17 GM POWD.PACK PO SCH (09:50)
[2019-02-27] MEDS: COMPLERA PO SCH (10:24)
--- NOTE | 2019-02-27 10:34 | NUR ---
HOME MED COMPLERA GIVEN LATE - PHARMACY DELAY
--- NOTE | 2019-02-27 11:34 | NUR ---
WOUND CARE CONSULT: PT PRESENTS WITH SACRAL SCAR AND LEFT HEEL INTACT DEEP TISSUE INJURY, PRESENT ON ADMISSION. RECOMMENDATIONS MADE FOR WOUND CARE AND SKIN PROTECTION. DISCUSSED WITH NURSING STAFF. WILL SEE PRN. ETIENNE IN AGREEMENT WITH PLAN OF CARE. ISOFLEX LOW AIRLOSS BED TO BE PLACED WHEN AVAILABLE. Addendum: 02/27/19 at 1136 by BRUNO MCKAY WNDNU Amended: Links added.
[2019-02-27 12:00] VITALS: BP 78/42
[2019-02-27 16:00] VITALS: BP 85/54
--- NOTE | 2019-02-27 19:29 | NUR ---
RN CLOSING NOTES PATIENT IS RESTING IN BED COMFORTABLY, DENIES ANY PAIN OR DISCOMFORT AT THIS TIME. NO ACUTE CHANGES OCCURRED THROUGHOUT THE SHIFT, VITAL SIGNS ARE STABLE, PT NEEDS HAVE BEEN MET. SAFETY MEASURES HAVE BEEN IMPLEMENTED, CALL LIGHT IS WITHIN REACH, BED IS IN LOWEST AND LOCKED POSITION, SIDE RAILS UP X2, PT HAS BEEN ENDORSED TO NIGHTSHIFT RN FOR CONTINUITY OF CARE.
[2019-02-27 20:00] VITALS: BP 94/47
[2019-02-27] MEDS: VIT B CMPLX 3/FA/VIT C/BIOTIN 1 TAB TABLET PO SCH (21:39)
--- NOTE | 2019-02-28 00:18 | NUR ---
RN NOTES, ENDORSED PATIENT TO NABEEL WILLAMS FOR CONTINUATION OF CARE, PATIENT ON ROOM AIR NO SOB/ACUTE DISTRESS NOTED.
--- NOTE | 2019-02-28 00:30 | NUR ---
MS RN NOTE RECEIVED PATIENT ASLEEP IN BED WITH NO SIGNS OF ANY DISTRESS. ALL SAFETY PRECAUTIONS APPLIED. WILL CONTINUE TO MONITOR
[2019-02-28 04:00] VITALS: BP 90/51
--- NOTE | 2019-02-28 04:00 | NUR ---
MS RN NOTE PATIENT REFUSED TO GET A BED BATH OR BE CHANGED. ASKED BY THE WOOD SASH AND FRAME CARPENTER STEPHANE
[2019-02-28 07:03] LABS: CALCIUM, SERUM 8.4 mg/dL (8.5-10.1); CREATININE 2.9 mg/dL (0.6-1.3); POTASSIUM 3.2 mmol/L (3.5-5.1)
--- NOTE | 2019-02-28 07:20 | NUR ---
RN OPENING NOTES RECEIVED PATIENT SLEEPING IN BED, A/O X2. EASILY AROUSED. VERBAL, AND ON BEDREST. ON ROOM AIR. NO SOB OR RESP DISTRESS NOTED DURING ASSESSMENT. SHE HAS A RFA 22G SL, INTACT AND FLUSHED WELL. HD CATH ON RIGHT CHEST, DRESSING INTACT. SAFETY MEASURES HAVE BEEN IMPLEMENTED, CALL LIGHT IS WITHIN REACH, BED IS IN LOWEST AND LOCKED POSITION, SIDE RIALS UP X2, WILL CONTINUE TO MONITOR FOR ANY CHANGES.
--- NOTE | 2019-02-28 07:30 | NUR ---
MS RN NOTE PATIENT IN BED NO SIGNS OF DISTRESS. ENDORSED PATIENT TO MORNING SHIFT NURSE
[2019-02-28 08:00] VITALS: BP 103/76
[2019-02-28] MEDS: FLUOXETINE HCL 20 MG CAPSULE PO SCH ×2 (09:00→14:47)
[2019-02-28] MEDS: DOCUSATE SODIUM 250 MG CAPSULE PO SCH ×2 (09:00→14:47)
[2019-02-28] MEDS: GABAPENTIN 100 MG CAPSULE PO SCH ×3 (09:00→17:54)
[2019-02-28] MEDS: ASPIRIN EC 81 MG TABLET.DR PO SCH ×2 (09:00→14:48)
[2019-02-28] MEDS: POLYETHYLENE GLYCOL 3350 17 GM POWD.PACK PO SCH ×2 (09:00→14:48)
[2019-02-28] MEDS: FOLIC ACID 1 MG TABLET PO SCH ×2 (09:00→14:47)
[2019-02-28] MEDS: OXYBUTYNIN CHLORIDE 5 MG TABLET PO SCH ×2 (09:00→14:47)
[2019-02-28] MEDS: FAMOTIDINE (20 MG) 20 MG TABLET PO SCH (09:00)
[2019-02-28] MEDS: COMPLERA PO SCH (09:00)
--- NOTE | 2019-02-28 09:00 | NUR ---
MS RN NOTE PATIENT GOING TO HAVE HEMODIALYSIS. MORNING MEDICATION HOLD. WILL GIVE AFTER HEMODIALYSIS.
[2019-02-28] MEDS ORDERED: ALBUMIN 25% 25 GM in PREMIX 1 EA IV PRN (11:00)
--- NOTE | 2019-02-28 12:17 | NUR ---
HEMODIALYSIS DONE. ZERO OUTPUT.
[2019-02-28] MEDS ORDERED: VANCOMYCIN 1 GM in IV D5W 250 ML IV ONE (14:00)
[2019-02-28 16:00] VITALS: BP_SYST 112; BP_SYST 92; BP_DIAS 52; BP_DIAS 64
--- NOTE | 2019-02-28 19:15 | NUR ---
MS RN NOTE JUST READ HISTORY & PHYSICAL NOTE ON 02/25/19 AND NOTICED PATIENT HAS HISTORY OF HIV BUT SHE IS NOT ON ISOLATION AT THIS MOMENT. CHARGE NURSE MADE AWARE. WILL INFORM THE NIGHT CHARGE NURSE TO PUT PATIENT ON NEUTROPENIC ISOLATION.
--- NOTE | 2019-02-28 19:17 | NUR ---
RN CLOSING NOTES PATIENT IS RESTING IN BED COMFORTABLY, DENIES ANY PAIN OR DISCOMFORT AT THIS TIME. NO ACUTE CHANGES OCCURRED THROUGHOUT THE SHIFT, VITAL SIGNS ARE STABLE, PT NEEDS HAVE BEEN MET. SAFETY MEASURES HAVE BEEN IMPLEMENTED, CALL LIGHT IS WITHIN REACH, BED IS IN LOWEST AND LOCKED POSITION, SIDE RAILS UP X3. WILL ENDORSE TO NIGHTSHIFT RN FOR CONTINUITY OF CARE.
[2019-02-28 20:00] VITALS: BP 104/65
--- NOTE | 2019-02-28 20:00 | NUR ---
MS RN NOTE PT IN BED AWAKE. A/O X 2, NO SOB, NO DISTRESS OR DISCOMFORT NOTED. DENIES PAIN AT THIS TIME. RFA SL #22 G. INTACT AND PATENT. ALL NEEDS ATTENDED. SIDE RAILS UP X 2 AND CALL LIGHT WITHIN REACH. VSS. CONTINUE TO MONITOR HER.
[2019-02-28] MEDS: VIT B CMPLX 3/FA/VIT C/BIOTIN 1 TAB TABLET PO SCH (22:08)
[2019-03-01] VITALS: BP 87/48
[2019-03-01 04:00] VITALS: BP 106/62
[2019-03-01 04:40] VITALS: BP 104/65
[2019-03-01] MEDS ORDERED: VANCOMYCIN POST DIALYSIS 500MG IV PRN ×2 (06:00)
--- NOTE | 2019-03-01 06:40 | NUR ---
MS RN NOTE PT IN BED ASLEEP, AROUSABLE. NO DISTRESS OR DISCOMFORT NOTED. DENIES PAIN. ALL NEEDS ATTENDED. SIDE RAIL UP X 2 AND CALL LIGHT WITHIN REACH. WILL ENDORSE TO DAY SHIFT NURSE FOR CONTINUE TO CARE.
[2019-03-01 06:50] LABS: BASOPHILS % (AUTO) 0.4 % (0.0-2.0); EOSINOPHILS % (AUTO) 1.8 % (0.0-6.0); HEMATOCRIT 27 % (33-45); HEMOGLOBIN 9.2 g/dL (11.5-14.8); LYMPHOCYTES # (AUTO) 1.8 /CMM (0.8-4.8); MEAN CORPUSCULAR HGB CONC 34 g/dl (31.0-36.0); MEAN CORPUSCULAR VOLUME 115 fL (82-100); MONOCYTES # (AUTO) 0.3 /CMM (0.1-1.30); MONOCYTES % (AUTO) 7.5 % (2.0-12.0); NEUTROPHILS # (AUTO) 1.4 /CMM (1.8-8.9); NEUTROPHILS % (AUTO) 39.3 % (43.0-81.0); PLATELET COUNT (AUTO) 152 /CMM (150-450); RED BLOOD CELL COUNT(AUTO) 2.37 MIL/uL (4.0-5.2); WHITE BLOOD COUNT (AUTO) 3.5 K/uL (4.3-11.0)
--- NOTE | 2019-03-01 07:20 | NUR ---
RN OPENING NOTES RECEIVED PATIENT A/O X2. VERBAL, AND ON BEDREST. ON ROOM AIR. NO SOB OR RESP DISTRESS NOTED DURING ASSESSMENT. SHE HAS A RFA 22G SL, INTACT, PATENT AND FLUSHED WELL. HD CATH ON RIGHT CHEST, DRESSING INTACT. SAFETY MEASURES HAVE BEEN IMPLEMENTED, CALL LIGHT IS WITHIN REACH, BED IS IN LOWEST AND LOCKED POSITION, SIDE RIALS UP X2, WILL CONTINUE TO MONITOR FOR ANY CHANGES.
[2019-03-01 08:00] VITALS: BP 86/51
[2019-03-01 08:08] LABS: CALCIUM, SERUM 8.6 mg/dL (8.5-10.1); CREATININE 2.3 mg/dL (0.6-1.3); POTASSIUM 3.4 mmol/L (3.5-5.1)
[2019-03-01] MEDS: OXYBUTYNIN CHLORIDE 5 MG TABLET PO SCH ×2 (09:00→16:21)
[2019-03-01] MEDS: GABAPENTIN 100 MG CAPSULE PO SCH ×3 (09:00→16:21)
[2019-03-01] MEDS: DOCUSATE SODIUM 250 MG CAPSULE PO SCH ×2 (09:00→16:21)
[2019-03-01] MEDS: FAMOTIDINE (20 MG) 20 MG TABLET PO SCH (09:00)
[2019-03-01] MEDS: COMPLERA PO SCH (09:01)
--- NOTE | 2019-03-01 10:13 | NUR ---
PATIENT DX IS SEPSIS AND UTI AND HAS A LOW BP. DR DAY MADE AWARE. NS 0.9% IV FLUID @100 ML/HR SCHEDULED ORDERED. ORDER CARRIED OUT.
[2019-03-01] MEDS ORDERED: IV NS 0.9% 1,000 ML BAG IV SCH (12:00)
--- NOTE | 2019-03-01 12:06 | NUR ---
PATIENT VTE SCORE 3. DR DAY MADE AWARE. DVT PUMP ORDERED. ACCORDING TO DR. DAY THERE IS NO NEED FOR CHEMICAL PROPHYLAXIS DUE TO LOW H&H.
[2019-03-01] MEDS: FLUCONAZOLE IN NS 100 MG in PREMIX 1 EA IV SCH ×2 (12:30)
[2019-03-01] MEDS: IV NS 0.9% 1,000 ML IV PRN (14:10)
[2019-03-01 16:00] VITALS: BP 91/48
--- NOTE | 2019-03-01 19:30 | NUR ---
MS RN NOTE: RECEIVED PT ON BED, AWAKE, ALERT AND ORIENTED TO SELF ONLY. NO APPARENT DISTRESS NOTED. NO COMPLAINTS OF PAIN OR DISCOMFORT AT THIS TIME. NO SOB NOTED. IV ON RIGHT FOREARM #22 INTACT AND PATENT, IVF INFUSING WELL. KEPT CLEAN, DRY AND COMFORTABLE. SAFETY AND FALL PRECAUTIONS OBSERVED AND MAINTAINED. WILL CONTINUE TO MONITOR PT
--- NOTE | 2019-03-01 19:38 | NUR ---
RN CLOSING NOTES PATIENT IS RESTING IN BED COMFORTABLY, DENIES ANY PAIN OR DISCOMFORT AT THIS TIME. NO ACUTE CHANGES OCCURRED THROUGHOUT THE SHIFT, VITAL SIGNS ARE STABLE, PT NEEDS HAVE BEEN MET. SAFETY MEASURES HAVE BEEN IMPLEMENTED, CALL LIGHT IS WITHIN REACH, BED IS IN LOWEST AND LOCKED POSITION, SIDE RAILS UP X3. ENDORSED TO NIGHTSHIFT RN FOR CONTINUITY OF CARE.
[2019-03-01 20:00] VITALS: BP 92/58
[2019-03-01] MEDS: VIT B CMPLX 3/FA/VIT C/BIOTIN 1 TAB TABLET PO SCH (22:38)
[2019-03-02] MEDS: IV NS 0.9% 1,000 ML IV PRN ×2 (00:41→19:21)
[2019-03-02 04:00] VITALS: BP 83/56
--- NOTE | 2019-03-02 05:45 | NUR ---
MS RN NOTE: PATIENT'S BP LOW 83/56, RECHECKED BP BUT STILL LOW 80/47. BELLING MACHINE OPERATOR DIRECTOR OF REGIONAL SALES SALUD MADE AWARE AND ORDERED BOLUS NS 500 ML IN ADDITION TO IVF. ORDER CARRIED OUT AND DONE. WILL CONTINUE TO MONITOR PT.
[2019-03-02] MEDS ORDERED: IV NS 0.9% 500 ML IV ONE (06:00)
[2019-03-02 06:30] VITALS: BP 102/54
--- NOTE | 2019-03-02 06:42 | NUR ---
MS RN NOTE: PT IN BED WITH NO APPARENT DISTRESS NOTED. DENIES PAIN AND DISCOMFORT AT THIS TIME. RECHECKED BP AFTER GIVING NS BOLUS, BP WENT UP TO 102/54. IV ON RIGHT FOREARM #24 GOT INFILTRATED, REINSERTED NEW PERIPHERAL IV ON LEFT HAND #24. NO SIGNS/SYMPTOMS OF INFILTRATION NOTED, IVF INFUSING WELL. KEPT CLEAN, DRY AND COMFORTABLE. SAFETY AND FALL PRECAUTIONS OBSERVED AND MAINTAINED. WILL ENDORSE TO DAY SHIFT RN FOR CONTINUITY OF CARE
[2019-03-02 06:46] LABS: WHITE BLOOD COUNT (AUTO) 4.9 K/uL (4.3-11.0)
[2019-03-02 06:54] LABS: CALCIUM, SERUM 8.4 mg/dL (8.5-10.1); CREATININE 2.5 mg/dL (0.6-1.3); POTASSIUM 3.4 mmol/L (3.5-5.1)
[2019-03-02 06:58] LABS: BASOPHILS % (AUTO) 0.6 % (0.0-2.0); EOSINOPHILS % (AUTO) 1.6 % (0.0-6.0); HEMATOCRIT 21 % (33-45); HEMOGLOBIN 7.1 g/dL (11.5-14.8); MEAN CORPUSCULAR HGB CONC 34 g/dl (31.0-36.0); MEAN CORPUSCULAR VOLUME 115 fL (82-100); MONOCYTES # (AUTO) 0.4 /CMM (0.1-1.30); MONOCYTES % (AUTO) 7.8 % (2.0-12.0); NEUTROPHILS # (AUTO) 1.5 /CMM (1.8-8.9); PLATELET COUNT (AUTO) 164 /CMM (150-450)
[2019-03-02 06:59] LABS: RED BLOOD CELL COUNT(AUTO) 1.82 MIL/uL (4.0-5.2)
[2019-03-02 08:00] VITALS: BP 97/56
[2019-03-02 08:03] LABS: LYMPHOCYTES % (MANUAL) 67 % (16-48); MONOCYTES % (MANUAL) 5 % (0-11.0); MYELOCYTES % 1 % (0-0); NEUTROPHILS % (MANUAL) 27 (42-76)
[2019-03-02] MEDS: POLYETHYLENE GLYCOL 3350 17 GM POWD.PACK PO SCH ×2 (09:00→09:14)
[2019-03-02] MEDS: DOCUSATE SODIUM 250 MG CAPSULE PO SCH ×3 (09:00→17:00)
[2019-03-02] MEDS: OXYBUTYNIN CHLORIDE 5 MG TABLET PO SCH ×2 (09:13→17:26)
[2019-03-02] MEDS: ASPIRIN EC 81 MG TABLET.DR PO SCH (09:13)
[2019-03-02] MEDS: GABAPENTIN 100 MG CAPSULE PO SCH ×3 (09:14→17:26)
[2019-03-02] MEDS: FLUOXETINE HCL 20 MG CAPSULE PO SCH (09:14)
[2019-03-02] MEDS: FAMOTIDINE (20 MG) 20 MG TABLET PO SCH (09:14)
[2019-03-02] MEDS: FOLIC ACID 1 MG TABLET PO SCH (09:14)
[2019-03-02] MEDS: COMPLERA PO SCH (09:14)
[2019-03-02] MEDS: FLUCONAZOLE IN NS 100 MG in PREMIX 1 EA IV SCH ×2 (12:22)
[2019-03-02 16:00] VITALS: BP 100/54
--- NOTE | 2019-03-02 19:00 | NUR ---
MS RN CLOSING NO SIGNIFICANT CHANGES THROUGHOUT SHIFT. REMAINS A/Ox2-3, ON ROOM AIR, NO SOB. PER MD, CONTINUE RUNNING NS @100mL/HR, AWARE PATIENT IS DIALYSIS PATIENT. DIALYZED TODAY, 0mL OUT. L HAND 24G C/D/I. SEE DOCUMENTATION FOR BP MONITORING. BED ALARM ON, CALL LIGHT WITHIN REACH, ENDORSED TO NOC RN FOR L[place]
--- NOTE | 2019-03-02 19:30 | NUR ---
MS RN OPENING NOTE RECEIVED PATIENT A/O X2 WITH NO SIGNS OF ANY DISTRESS. PATIENT IS ON ROOM AIR WITH NO SOB. LUNGS ARE CLEAR. IV ACCESS ON LT HAND #24g WITH NS RUNNING AT 100ML/HR AND A RT CHEST WALL HD CATH. PATIENT HAS SOME MILD PAIN ON HER LT HEEL WILL ADMINISTER PAIN MEDICATION ORDERED. PATIENT IS ON BED REST WITH WEAKNESS IN THE LOWER EXTREMITIES. ALL SAFETY PRECAUTIONS HAVE BEEN APPLIED WILL CONTINUE TO MONITOR.
[2019-03-02 20:00] VITALS: BP 103/59
[2019-03-02] MEDS: VIT B CMPLX 3/FA/VIT C/BIOTIN 1 TAB TABLET PO SCH (21:29)
[2019-03-03 04:00] VITALS: BP 95/66
[2019-03-03] MEDS: IV NS 0.9% 1,000 ML IV PRN (05:37)
[2019-03-03 06:59] LABS: BASOPHILS % (AUTO) 0.5 % (0.0-2.0); EOSINOPHILS % (AUTO) 2.1 % (0.0-6.0); HEMATOCRIT 29 % (33-45); HEMOGLOBIN 9.7 g/dL (11.5-14.8); LYMPHOCYTES # (AUTO) 2.2 /CMM (0.8-4.8); LYMPHOCYTES % (AUTO) 58.4 % (20.0-44.0); MEAN CORPUSCULAR HGB CONC 34 g/dl (31.0-36.0); MEAN CORPUSCULAR VOLUME 117 fL (82-100); MONOCYTES # (AUTO) 0.3 /CMM (0.1-1.30); MONOCYTES % (AUTO) 8.3 % (2.0-12.0); NEUTROPHILS # (AUTO) 1.2 /CMM (1.8-8.9); NEUTROPHILS % (AUTO) 30.7 % (43.0-81.0); PLATELET COUNT (AUTO) 162 /CMM (150-450); RED BLOOD CELL COUNT(AUTO) 2.46 MIL/uL (4.0-5.2); WHITE BLOOD COUNT (AUTO) 3.8 K/uL (4.3-11.0)
--- NOTE | 2019-03-03 07:20 | NUR ---
MS RN CLOSING NOTE PATIENT IN BED WITH NO SIGNS OF ANY DISTRESS. PATIENT IS ON ROOM AIR WITH NO SOB. ALL SAFETY PRECAUTIONS HAVE BEEN APPLIED. ENDORSED PATIENT TO MORNING SHIFT NURSE FOR LANDON.
[2019-03-03 07:23] LABS: CALCIUM, SERUM 8.5 mg/dL (8.5-10.1); CREATININE 1.8 mg/dL (0.6-1.3); POTASSIUM 3.6 mmol/L (3.5-5.1)
--- NOTE | 2019-03-03 07:29 | NUR ---
MS RN OPENING NOTE RECEIVED REPORT FROM [facility] SHIFT NURSE. PT AWAKE IN BED, ALERT AND ORIENTED X 4, ON ROOM AIR, SATURATING WELL, RESPIRATIONS EVEN AND UNLABORED, NO SIGNS OF RESPIRATORY DISTRESS NOTED. IV NS INFUSING AT 100ML/HR INTO LEFT HAND G24, NO SIGNS OF INFILTRATION NOTED, IV SITE IS CLEAN,INTACT, PATENT. BED IN LOW POSITION, LOCKED, CALL LIGHT WITHIN REACH. INTRODUCED SELF TO PT, DISCUSSED PLAN OF CARE.
--- NOTE | 2019-03-03 07:50 | NUR ---
WOUND CARE CONSULT: PT SEEN FOR RT BREAST REDNESS, UNKNOWN ETIOLOGY. SLIGHT REDNESS NOTED TO RT UPPER ABDOMEN WELL. DEFER TO MD. BREASTFOLDS ARE CLEAR. WILL SEE PRN. Addendum: 03/03/19 at 0751 by BRUNO MCKAY WNDNU Amended: Links added.
[2019-03-03 08:00] VITALS: BP 120/68
[2019-03-03] MEDS: OXYBUTYNIN CHLORIDE 5 MG TABLET PO SCH ×2 (08:35→17:17)
[2019-03-03] MEDS: POLYETHYLENE GLYCOL 3350 17 GM POWD.PACK PO SCH ×2 (08:35→08:42)
[2019-03-03] MEDS: FAMOTIDINE (20 MG) 20 MG TABLET PO SCH (08:35)
[2019-03-03] MEDS: FLUOXETINE HCL 20 MG CAPSULE PO SCH (08:35)
[2019-03-03] MEDS: ASPIRIN EC 81 MG TABLET.DR PO SCH (08:35)
[2019-03-03] MEDS: DOCUSATE SODIUM 250 MG CAPSULE PO SCH ×3 (08:35→17:00)
[2019-03-03] MEDS: PROSOURCE / PROSTAT (PYXIS) 30 ML UDC PO SCH (08:35)
[2019-03-03] MEDS: GABAPENTIN 100 MG CAPSULE PO SCH ×3 (08:35→17:17)
[2019-03-03] MEDS: FOLIC ACID 1 MG TABLET PO SCH (08:35)
[2019-03-03] MEDS: COMPLERA PO SCH (08:37)
[2019-03-03 12:00] VITALS: BP 106/68
[2019-03-03] MEDS ORDERED: FLUCONAZOLE (100 MG) 100 MG TABLET PO SCH (12:00)
[2019-03-03] MEDS: VORICONAZOLE 200 MG TABLET PO SCH ×2 (12:20→21:48)
[2019-03-03 16:00] VITALS: BP 98/68
--- NOTE | 2019-03-03 18:29 | NUR ---
MS RN CLOSING NOTE PT AWAKE IN BED, ALERT AND ORIENTED X 4, ON ROOM AIR, SATURATING WELL, RESPIRATIONS EVEN AND UNLABORED, NO SIGNS OF RESPIRATORY DISTRESS NOTED. IV NS INFUSING AT 100ML/HR INTO LEFT HAND G24, NO SIGNS OF INFILTRATION NOTED, IV SITE IS CLEAN,INTACT, PATENT. BED IN LOW POSITION, LOCKED, CALL LIGHT WITHIN REACH. PROVIDED SAFETY AND COMFORT TO PT THROUGHOUT SHIFT, TURNED AND REPOSITIONED EVERY 2 HOURS. WILL ENDORSE TO NOC SHIFT NURSE.
--- NOTE | 2019-03-03 19:30 | NUR ---
MS RN OPENING NOTE RECEIVED PATIENT IN BED WITH A/O X4 NO SIGN OF ANY DISTRESS. PATIENT IS ON ROOM AIR WITH NO SOB. PATIENT HAS IV ACCESS ON LT HAND #24 WITH NS RUNNING AT 100ML/HR AND A RCW HD CATH. PATIENT IS NON AMBULATORY ON BED REST. ALL SAFETY PRECAUTIONS HAVE BEEN APPLIED WILL CONTINUE TO MONITOR PATIENT.
[2019-03-03 20:00] VITALS: BP 92/57
[2019-03-03] MEDS: VIT B CMPLX 3/FA/VIT C/BIOTIN 1 TAB TABLET PO SCH (21:48)
[2019-03-04 04:00] VITALS: BP 94/58
[2019-03-04] MEDS: IV NS 0.9% 1,000 ML IV PRN ×2 (05:20→16:01)
[2019-03-04 06:21] LABS: BASOPHILS % (AUTO) 0.4 % (0.0-2.0); EOSINOPHILS % (AUTO) 2.1 % (0.0-6.0); HEMATOCRIT 26 % (33-45); HEMOGLOBIN 8.8 g/dL (11.5-14.8); LYMPHOCYTES # (AUTO) 2.1 /CMM (0.8-4.8); LYMPHOCYTES % (AUTO) 60.1 % (20.0-44.0); MEAN CORPUSCULAR HGB CONC 33 g/dl (31.0-36.0); MEAN CORPUSCULAR VOLUME 118 fL (82-100); MONOCYTES # (AUTO) 0.3 /CMM (0.1-1.30); MONOCYTES % (AUTO) 7.5 % (2.0-12.0); NEUTROPHILS % (AUTO) 29.9 % (43.0-81.0); PLATELET COUNT (AUTO) 177 /CMM (150-450); RED BLOOD CELL COUNT(AUTO) 2.23 MIL/uL (4.0-5.2); WHITE BLOOD COUNT (AUTO) 3.5 K/uL (4.3-11.0)
[2019-03-04 06:38] LABS: CALCIUM, SERUM 8.5 mg/dL (8.5-10.1); CREATININE 2.1 mg/dL (0.6-1.3); POTASSIUM 3.2 mmol/L (3.5-5.1)
--- NOTE | 2019-03-04 07:17 | NUR ---
MS RN CLOSING NOTE PATIENT IN BED WITH NO SIGNS OF ANY DISTRESS. PATIENT IS ON ROOM AIR WITH NO SOB. ALL SAFETY PRECAUTIONS HAVE BEEN APPLIED. ENDORSED PATIENT TO MORNING SHIFT NURSE FOR CONTINUATION OF CARE.
[2019-03-04 08:00] VITALS: BP 104/71
[2019-03-04] MEDS: PROSOURCE / PROSTAT (PYXIS) 30 ML UDC PO SCH (08:42)
[2019-03-04] MEDS: POLYETHYLENE GLYCOL 3350 17 GM POWD.PACK PO SCH (09:00)
[2019-03-04] MEDS: DOCUSATE SODIUM 250 MG CAPSULE PO SCH ×2 (09:00→16:42)
[2019-03-04] MEDS: GABAPENTIN 100 MG CAPSULE PO SCH ×3 (09:01→16:26)
[2019-03-04] MEDS: FOLIC ACID 1 MG TABLET PO SCH (09:01)
[2019-03-04] MEDS: ASPIRIN EC 81 MG TABLET.DR PO SCH (09:01)
[2019-03-04] MEDS: VORICONAZOLE 200 MG TABLET PO SCH ×2 (09:01→21:16)
[2019-03-04] MEDS: FAMOTIDINE (20 MG) 20 MG TABLET PO SCH (09:01)
[2019-03-04] MEDS: OXYBUTYNIN CHLORIDE 5 MG TABLET PO SCH ×2 (09:02→16:26)
[2019-03-04] MEDS: FLUOXETINE HCL 20 MG CAPSULE PO SCH (09:02)
[2019-03-04 09:03] LABS: EOSINOPHILS % (MANUAL) 1 % (0-4); LYMPHOCYTES % (MANUAL) 58 % (16-48); MONOCYTES % (MANUAL) 6 % (0-11.0); NEUTROPHILS % (MANUAL) 35 (42-76)
[2019-03-04] MEDS: COMPLERA PO SCH (09:50)
[2019-03-04] MEDS: MIDODRINE HCL (5MG) 5 MG TABLET PO SCH ×2 (12:33→16:26)
--- NOTE | 2019-03-04 13:59 | NUR ---
PATIENT HAD HD TODAY, TOLERATED WELL. 0 FLUID WAS REMOVED. WILL CONTINUE TO MONITOR FOR ANY CHANGES
[2019-03-04 16:00] VITALS: BP 104/73
--- NOTE | 2019-03-04 18:54 | NUR ---
RN CLOSING NOTES PATIENT IS RESTING IN BED COMFORTABLY AT THIS TIME, SHOWS NO S/SX OF DISTRESS, PAIN, OR SOB. PT WAS DIALYZED TODAY, TOLERATED WELL. PT NEEDS HAVE BEEN MET, VITAL SIGNS ARE STABLE, NO ACUTE CHANGES OCCURRED THROUGHOUT THE SHIFT. SAFETY MEASURES HAVE BEEN IMPLEMENTED, CALL LIGHT IS WITHIN REACH, BED IS IN LOWEST AND LOCKED POSITION, SIDE RIALS UP X2, WILL ENDORSE TO NIGHTSHIFT RN FOR CONTINUITY OF CARE.
--- NOTE | 2019-03-04 19:30 | NUR ---
MS RN NOTE: RECEIVED PT ON BED, AWAKE, ALERT AND ORIENTED X2. NO APPARENT DISTRESS NOTED. NO COMPLAINTS OF PAIN OR DISCOMFORT AT THIS TIME. NO SOB NOTED. IV ON LEFT THUMB #24 INTACT AND PATENT, IVF INFUSING WELL. KEPT CLEAN, DRY AND COMFORTABLE. SAFETY AND FALL PRECAUTIONS OBSERVED AND MAINTAINED. WILL CONTINUE TO MONITOR PT
[2019-03-04 20:00] VITALS: BP 90/57
[2019-03-04] MEDS: VIT B CMPLX 3/FA/VIT C/BIOTIN 1 TAB TABLET PO SCH (21:16)
[2019-03-05] MEDS: IV NS 0.9% 1,000 ML IV PRN ×2 (03:58→15:26)
[2019-03-05 04:00] VITALS: BP 90/45
[2019-03-05 06:19] LABS: BASOPHILS % (AUTO) 0.5 % (0.0-2.0); EOSINOPHILS % (AUTO) 2.2 % (0.0-6.0); HEMATOCRIT 24 % (33-45); HEMOGLOBIN 8.3 g/dL (11.5-14.8); LYMPHOCYTES % (AUTO) 60.7 % (20.0-44.0); MEAN CORPUSCULAR HGB CONC 34 g/dl (31.0-36.0); MEAN CORPUSCULAR VOLUME 118 fL (82-100); MONOCYTES # (AUTO) 0.2 /CMM (0.1-1.30); MONOCYTES % (AUTO) 7.4 % (2.0-12.0); NEUTROPHILS % (AUTO) 29.2 % (43.0-81.0); PLATELET COUNT (AUTO) 159 /CMM (150-450); RED BLOOD CELL COUNT(AUTO) 2.08 MIL/uL (4.0-5.2); WHITE BLOOD COUNT (AUTO) 3.3 K/uL (4.3-11.0)
[2019-03-05 06:34] LABS: CALCIUM, SERUM 7.9 mg/dL (8.5-10.1); CREATININE 1.8 mg/dL (0.6-1.3); POTASSIUM 3.2 mmol/L (3.5-5.1)
--- NOTE | 2019-03-05 06:49 | NUR ---
MS RN NOTE: PT IN BED WITH NO APPARENT DISTRESS NOTED. DENIES PAIN AND DISCOMFORT AT THIS TIME. IV ON LEFT THUMB #24 INTACT AND PATENT, IVF INFUSING WELL. NO SIGNS/SYMPTOMS OF INFILTRATION NOTED. KEPT CLEAN, DRY AND COMFORTABLE. SAFETY AND FALL PRECAUTIONS OBSERVED AND MAINTAINED. WILL ENDORSE TO DAY SHIFT RN FOR CONTINUITY OF CARE
--- NOTE | 2019-03-05 07:05 | NUR ---
MS RN OPENING NOTE: RECEIVED PATIENT IN BED. AWAKE, ALERT AND ORIENTED X2. TOLERATING ROOM AIR WELL. NO SOB, NOT IN ACUTE DISTRESS. APPEARS COMFORTABLE AND RELAXED. NO PAIN REPORTED. WITH IV SITE AT LEFT THUMB G24 WITH NS @ 100CC/HR INFUSING WELL. CALL LIGHT IN REACH, BED IN LOW, LOCKED AND SEMI-MELENDEZ'S POSITION. WILL CONTINUE TO MONITOR.
[2019-03-05 08:00] VITALS: BP 85/49
[2019-03-05] MEDS: POLYETHYLENE GLYCOL 3350 17 GM POWD.PACK PO SCH ×2 (08:36→09:00)
[2019-03-05] MEDS: FAMOTIDINE (20 MG) 20 MG TABLET PO SCH (08:37)
[2019-03-05] MEDS: FOLIC ACID 1 MG TABLET PO SCH (08:37)
[2019-03-05] MEDS: COMPLERA PO SCH (08:37)
[2019-03-05] MEDS: DOCUSATE SODIUM 250 MG CAPSULE PO SCH ×2 (08:37→17:00)
[2019-03-05] MEDS: OXYBUTYNIN CHLORIDE 5 MG TABLET PO SCH ×2 (08:37→16:51)
[2019-03-05] MEDS: VORICONAZOLE 200 MG TABLET PO SCH ×2 (08:37→22:16)
[2019-03-05] MEDS: MIDODRINE HCL (5MG) 5 MG TABLET PO SCH ×3 (08:37→16:51)
[2019-03-05] MEDS: ASPIRIN EC 81 MG TABLET.DR PO SCH (08:37)
[2019-03-05] MEDS: GABAPENTIN 100 MG CAPSULE PO SCH ×3 (08:37→16:52)
[2019-03-05] MEDS: FLUOXETINE HCL 20 MG CAPSULE PO SCH (08:37)
[2019-03-05] MEDS: PROSOURCE / PROSTAT (PYXIS) 30 ML UDC PO SCH (08:38)
[2019-03-05 09:32] LABS: EOSINOPHILS % (MANUAL) 2 % (0-4); LYMPHOCYTES % (MANUAL) 61 % (16-48); MONOCYTES % (MANUAL) 4 % (0-11.0); NEUTROPHILS % (MANUAL) 33 (42-76)
[2019-03-05 16:00] VITALS: BP 98/60
--- NOTE | 2019-03-05 19:00 | NUR ---
MS RN CLOSING NOTE: PATIENT IS IN BED. AWAKE, ALERT AND ORIENTED X4. STABLE AND NO CHANGES NOTED ON SHIFT. TOLERATING ROOM AIR WELL. NO SOB, NOT IN DISTRESS. NEW IV SITE AT LEFT HAND IS PATENT, SITE CLEAN, DRY AND SECURE. TOLERATING IV INFUSION WELL. BED LOCKED, LOW AND SEMI-MELENDEZ'S. CALL LIGHT IN REACH. WILL ENDORSE TO ONCOMING SHIFT FOR CONTINUITY OF CARE.
[2019-03-05] MEDS: VIT B CMPLX 3/FA/VIT C/BIOTIN 1 TAB TABLET PO SCH (22:16)
[2019-03-06] MEDS: IV NS 0.9% 1,000 ML IV PRN ×2 (02:51→13:50)
[2019-03-06 07:05] LABS: BASOPHILS % (AUTO) 0.4 % (0.0-2.0); EOSINOPHILS % (AUTO) 1.9 % (0.0-6.0); HEMATOCRIT 28 % (33-45); LYMPHOCYTES % (AUTO) 55.8 % (20.0-44.0); MEAN CORPUSCULAR HGB CONC 33 g/dl (31.0-36.0); MEAN CORPUSCULAR VOLUME 120 fL (82-100); MONOCYTES # (AUTO) 0.4 /CMM (0.1-1.30); MONOCYTES % (AUTO) 7.3 % (2.0-12.0); NEUTROPHILS # (AUTO) 1.9 /CMM (1.8-8.9); NEUTROPHILS % (AUTO) 34.6 % (43.0-81.0); PLATELET COUNT (AUTO) 169 /CMM (150-450); WHITE BLOOD COUNT (AUTO) 5.4 K/uL (4.3-11.0)
[2019-03-06 07:21] LABS: CALCIUM, SERUM 8.1 mg/dL (8.5-10.1); MAGNESIUM 1.7 mg/dL (1.8-2.4); PHOSPHORUS 3.1 mg/dL (2.5-4.9); POTASSIUM 3.3 mmol/L (3.5-5.1)
--- NOTE | 2019-03-06 07:25 | NUR ---
MS RN OPENING NOTES RECEIVED PT LYING ON BED,ALERT/ORIENTED X4.ON ROOM AIR,TOLERATING WELL.NO SOB AND ACUTE DISTRESS NOTED.IV LINE IS ON LEFT HAND G24 WIITH IV FLUID IS RUNNING AND RIGHT CHEST WALL HD CATH.SITE IS CLEAN,DRY AND INTACT.NO INFILTRATION NOTED.BED IS IN LOW POSITION AND LOCKED,CALL LIGHT IS WITHIN REACH.WILL CONTINUE TO MONITOR THE PT CLOSELY
[2019-03-06 08:00] VITALS: BP 93/58
[2019-03-06] MEDS: DOCUSATE SODIUM 250 MG CAPSULE PO SCH ×2 (09:00→16:01)
[2019-03-06] MEDS: PROSOURCE / PROSTAT (PYXIS) 30 ML UDC PO SCH (09:00)
[2019-03-06] MEDS: POLYETHYLENE GLYCOL 3350 17 GM POWD.PACK PO SCH (09:00)
[2019-03-06] MEDS: FLUOXETINE HCL 20 MG CAPSULE PO SCH (09:03)
[2019-03-06] MEDS: FOLIC ACID 1 MG TABLET PO SCH (09:03)
[2019-03-06] MEDS: GABAPENTIN 100 MG CAPSULE PO SCH ×3 (09:03→16:01)
[2019-03-06] MEDS: MIDODRINE HCL (5MG) 5 MG TABLET PO SCH ×3 (09:03→16:38)
[2019-03-06] MEDS: OXYBUTYNIN CHLORIDE 5 MG TABLET PO SCH ×2 (09:03→16:01)
[2019-03-06] MEDS: VORICONAZOLE 200 MG TABLET PO SCH ×2 (09:03→21:02)
[2019-03-06] MEDS: ASPIRIN EC 81 MG TABLET.DR PO SCH (09:03)
[2019-03-06] MEDS: FAMOTIDINE (20 MG) 20 MG TABLET PO SCH (09:03)
[2019-03-06] MEDS: COMPLERA PO SCH (09:06)
[2019-03-06 16:00] VITALS: BP 94/49
--- NOTE | 2019-03-06 18:29 | NUR ---
MS RN CLOSING NOTES PT IS LYING ON BED WITH IV FLUIDS.RESPIRATION IS EVEN AND NONLABORED.NO SIGNIFICANT CHANGES NOTED IN THE SHIFT.WILL ENDORSE TO GROUND LAYER RN FOR LANDON.
--- NOTE | 2019-03-06 19:31 | NUR ---
MS RN NOTES RECEIVED PT ON BED. A/O X 4. ON ROOM AIR NO RESPIRATORY DISTRESS NOTED. ON LEFT HAND G 24 NS @100CC/HR PATENT AND INTACT. RCW HD CATH NO BLEEDING NOTED. HEAD OF BED ELEVATED. SIDE RAILS UP. CALL LIGHT WITHIN REACH. BED IN LOW AND LOCKED POSITION. WILL MONITOR PT CLOSELY.
[2019-03-06 20:00] VITALS: BP 105/73
[2019-03-06] MEDS: VIT B CMPLX 3/FA/VIT C/BIOTIN 1 TAB TABLET PO SCH (21:02)
[2019-03-07] MEDS: IV NS 0.9% 1,000 ML IV PRN ×2 (00:11→10:39)
[2019-03-07 04:00] VITALS: BP 98/55
[2019-03-07] MEDS: ACETAMINOPHEN 325 MG TABLET PO PRN (04:18)
[2019-03-07 06:44] LABS: BASOPHILS % (AUTO) 0.4 % (0.0-2.0); EOSINOPHILS % (AUTO) 2.3 % (0.0-6.0); HEMATOCRIT 27 % (33-45); HEMOGLOBIN 8.9 g/dL (11.5-14.8); LYMPHOCYTES # (AUTO) 2.2 /CMM (0.8-4.8); LYMPHOCYTES % (AUTO) 50.6 % (20.0-44.0); MEAN CORPUSCULAR HGB CONC 33 g/dl (31.0-36.0); MEAN CORPUSCULAR VOLUME 119 fL (82-100); MONOCYTES # (AUTO) 0.3 /CMM (0.1-1.30); MONOCYTES % (AUTO) 6.7 % (2.0-12.0); NEUTROPHILS # (AUTO) 1.8 /CMM (1.8-8.9); PLATELET COUNT (AUTO) 179 /CMM (150-450); RED BLOOD CELL COUNT(AUTO) 2.25 MIL/uL (4.0-5.2); WHITE BLOOD COUNT (AUTO) 4.4 K/uL (4.3-11.0)
[2019-03-07 06:45] LABS: CREATININE 1.7 mg/dL (0.6-1.3); POTASSIUM 3.2 mmol/L (3.5-5.1)
--- NOTE | 2019-03-07 07:29 | NUR ---
MS RN CLOSING NOTE PATIENT IN BED WITH NO DISCOMFORT OR COMPLAINT OF ANY PAIN. PATIENT HAS IV RUNNING WITH NS AT 100CC/HR WITH NO SIGNS OF INFILTRATION. ALL SAFETY PRECAUTIONS HAVE BEEN APPLIED. ENDORSED PATIENT TO MORNING SHIFT NURSE FOR LANDON.
[2019-03-07 08:00] VITALS: BP 94/44
--- NOTE | 2019-03-07 08:00 | NUR ---
MS RN NOTES RECEIVED PT ON BED. A/O X 4. ON ROOM AIR NO RESPIRATORY DISTRESS NOTED. ON LEFT HAND G 24 NS @100CC/HR PATENT AND INTACT. RCW HD CATH IN PLACE NO BLEEDING NOTED. HEAD OF BED ELEVATED. SIDE RAILS UP. CALL LIGHT WITHIN REACH. BED IN LOW AND LOCKED POSITION. WILL MONITOR PT CLOSELY.
[2019-03-07] MEDS: GABAPENTIN 100 MG CAPSULE PO SCH ×3 (08:19→16:16)
[2019-03-07] MEDS: ASPIRIN EC 81 MG TABLET.DR PO SCH (08:19)
[2019-03-07] MEDS: FAMOTIDINE (20 MG) 20 MG TABLET PO SCH (08:19)
[2019-03-07] MEDS: FOLIC ACID 1 MG TABLET PO SCH (08:20)
[2019-03-07] MEDS: FLUOXETINE HCL 20 MG CAPSULE PO SCH (08:21)
[2019-03-07] MEDS: OXYBUTYNIN CHLORIDE 5 MG TABLET PO SCH ×2 (08:21→16:16)
[2019-03-07] MEDS: MIDODRINE HCL (5MG) 5 MG TABLET PO SCH ×3 (08:22→16:16)
[2019-03-07] MEDS: VORICONAZOLE 200 MG TABLET PO SCH ×2 (08:23→21:28)
[2019-03-07] MEDS: COMPLERA PO SCH (08:24)
[2019-03-07] MEDS: DOCUSATE SODIUM 250 MG CAPSULE PO SCH ×2 (08:25→16:18)
[2019-03-07] MEDS: POLYETHYLENE GLYCOL 3350 17 GM POWD.PACK PO SCH (08:25)
[2019-03-07] MEDS: PROSOURCE / PROSTAT (PYXIS) 30 ML UDC PO SCH (08:25)
[2019-03-07 12:00] VITALS: BP 99/65
--- NOTE | 2019-03-07 12:59 | NUR ---
ms rn note seen by dr peoples notified about a small bruises on body multiple also notified that k 3.2 with new order h given will f\u
[2019-03-07] MEDS ORDERED: POTASSIUM CHLORIDE 20 MEQ TAB.PRT.SR PO ONE (13:30)
--- NOTE | 2019-03-07 15:06 | NUR ---
MS RN NOTE RESTING COMFORTABLY AT THIS TIME, NO C\O ANY DISCOMFORT, ON IVF ORDERED ,WILL MONITOR
[2019-03-07 16:00] VITALS: BP 95/53
--- NOTE | 2019-03-07 18:16 | NUR ---
MS RN NOTE HAVING DINNER , ABLE TO EAT SELF , CONT ON IVF, ALL NEEDS ATTENDED ,WILL CONT TO MONITOR CLOSELY
--- NOTE | 2019-03-07 19:30 | NUR ---
RN Notes Received patient awake, alert and oriented x3. HOB elevated, on room air with good saturation. Denies any pain and discomfort at this time. IV access intact with ongoing IVF infusing well. Multiple bruses noted on bilateral arms. Bilateral lower leg elevated on pillows, heels offloaded. Plan of care discussed with the patient and verbalized understanding. safety measures and fall precaution in place. Kept comfortable and attended. Will continue to monitor.
[2019-03-07 20:00] VITALS: BP 133/77
[2019-03-07] MEDS: VIT B CMPLX 3/FA/VIT C/BIOTIN 1 TAB TABLET PO SCH (21:28)
[2019-03-08] MEDS: IV NS 0.9% 1,000 ML IV PRN (03:52)
[2019-03-08 04:00] VITALS: BP 105/60
--- NOTE | 2019-03-08 06:23 | NUR ---
RN Notes No significant change in condition noted. Vital signs stable, afebrile. Denies any pain and discomfort. Current diet tolerated well. Bilateral heels offloaded. Safety measures and fall precaution observed with call light within reach. Will continue to monitor and will endorse accordingly.
[2019-03-08 08:00] VITALS: BP_SYST 103; BP_SYST 78; BP_DIAS 47; BP_DIAS 57
--- NOTE | 2019-03-08 08:42 | NUR ---
HEMODIALYSIS DONE. ZERO OUTPUT.
[2019-03-08] MEDS: POLYETHYLENE GLYCOL 3350 17 GM POWD.PACK PO SCH ×3 (09:00→10:38)
[2019-03-08] MEDS: DOCUSATE SODIUM 250 MG CAPSULE PO SCH ×2 (09:00→09:12)
[2019-03-08] MEDS: FLUOXETINE HCL 20 MG CAPSULE PO SCH (09:10)
[2019-03-08] MEDS: GABAPENTIN 100 MG CAPSULE PO SCH ×2 (09:10→12:15)
[2019-03-08] MEDS: ASPIRIN EC 81 MG TABLET.DR PO SCH (09:11)
[2019-03-08] MEDS: MIDODRINE HCL (5MG) 5 MG TABLET PO SCH ×3 (09:11→12:39)
[2019-03-08] MEDS: COMPLERA PO SCH (09:11)
[2019-03-08] MEDS: FOLIC ACID 1 MG TABLET PO SCH (09:11)
[2019-03-08] MEDS: VORICONAZOLE 200 MG TABLET PO SCH (09:12)
[2019-03-08] MEDS: OXYBUTYNIN CHLORIDE 5 MG TABLET PO SCH (09:12)
[2019-03-08] MEDS: PROSOURCE / PROSTAT (PYXIS) 30 ML UDC PO SCH (09:13)
[2019-03-08] MEDS: FAMOTIDINE (20 MG) 20 MG TABLET PO SCH (09:13)
--- NOTE | 2019-03-08 10:13 | NUR ---
PATIENT REFUSED TO TAKE COLACE AND MIRALEX AND SAID: "I'M HAVING LOOSE STOOL FOR 2 DAYS. I DON'T NEED STOOL SOFTENER ANYMORE."
[2019-03-08] MEDS: ACETAMINOPHEN 325 MG TABLET PO PRN (12:15)
[2019-03-08 12:39] VITALS: BP 93/58
[2019-03-08 13:07] LABS: ACTH, PLASMA 44.1 pg/mL (7.2-63.3)
--- NOTE | 2019-03-08 14:37 | NUR ---
PATIENT GOT DISCHARGED TO THE [facility], LEFT THE FACILITY WITH PARAMEDICS, STABLE VS UPON DISCHARGE. THERE WAS NO BELONGING CHECKLIST IN THE CHART, SO WE HAD TO PRINT A NEW FORM AND DOUBLE CHECK WITH THE PATIENT. ACCORDING TO THE PATIENT SHE HAD A WALKER WHEN GOT ADMITTED HERE, BUT THERE WAS NO WALKER AT BEDSIDE. CALLED TO THE [facility] FACILITY TO VERIFY IF PATIENT WAS SENT WITH A WALKER. ACCORDING TO THOMAS, NURSE AT [facility], PATIENT WAS BROUGHT TO [facility] BECAUSE OF HYPOTENSION AND SHE COULD NOT FIND ANY RECORD IF SHE WAS SENT TO THE DIALYSIS CENTER WITH WALKER OR NOT.
== END 2019-03-08 15:13 | DRG 207 ==
LOC: ER 14:13 → TELE1 18:06 → MEDSG1 02-27 11:14 → TELE1 03-03 18:48 → MEDSG1 03-03 20:04
PROVIDERS: ADMIT Internal Medicine; ATTEND Internal Medicine
PROC: 5A1D70Z Performance of Urinary Filtration, Intermittent, Less than 6 Hours Per Day (ICD-10-PCS; principal; 2019-02-26)
DX: I95.3 Hypotension of hemodialysis (principal); G93.41 Metabolic encephalopathy; E87.8 Other disorders of electrolyte and fluid balance, not elsewhere classified; I12.0 Hypertensive chronic kidney disease with stage 5 chronic kidney disease or end stage renal disease; B48.8 Other specified mycoses; N18.6 End stage renal disease; D64.9 Anemia, unspecified; Z99.2 Dependence on renal dialysis; Z86.718 Personal history of other venous thrombosis and embolism; K21.9 Gastro-esophageal reflux disease without esophagitis; Z87.440 Personal history of urinary (tract) infections; N39.0 Urinary tract infection, site not specified; F41.9 Anxiety disorder, unspecified; F32.9 Major depressive disorder, single episode, unspecified; I25.10 Atherosclerotic heart disease of native coronary artery without angina pectoris; E87.6 Hypokalemia; Z79.51 Long term (current) use of inhaled steroids; Z79.899 Other long term (current) drug therapy; Z79.01 Long term (current) use of anticoagulants; D72.819 Decreased white blood cell count, unspecified
CPT/HCPCS: 36415; 70450-TC; 71045-TC; 80048-TC; 80053-TC; 80202-TC; 81000-TC; 82024; 82533; 83605-TC; 83735-TC; 84100-TC; 84484-TC; 85025-TC; 86706; 87081-TC; 87086-TC; 87340; 90935-TC; A4216; G0378; J1450; J2405; J2543; J3370; J7030; J7040; J7050; J7060; P9047

== ENCOUNTER 2019-04-22 15:20 | Inpatient (IN) | payer OTHER ==
[~2019-04-22] VITALS: Ht 167.6 cm; Wt 90.3 kg
[~2019-04-22 15:20] MED LIST changes: +ACET-868 PO; -AMIN30LI2 PO; +FLUO20CA42 PO; +FOLI0.8T2 PO; -MEGE400O4 PO; -METO50TA16 PO; +MINE133E RC; -NA P133E RC; -NAPH1POW3 PO; -ONDA4TAB5 PO; -POTA20TA83 PO; -RIVA10TA PO
--- NOTE | 2019-04-22 15:25 | NUR ---
NARAYAN Rea FROM [facility], FOR LOW BP OF 74/50, BS 110, RUC PERMA CATH MALFUNCTION, DIALYSIS NOT DONE. PATIENTS BP UPON ARRIVAL 137/116MMHG, TO ER BED 8, HOOKED TO MONITOR, CHANGED TO HOSP GOWN, PROVIDED W WARM BLANKET, KEPT SAFE AND COMFORTABLE, NOT IN RESPIRATORY DISTRESS, AWAITING MD OCAMPO.
--- NOTE | 2019-04-22 15:37 | NUR ---
DR WHITTINGTON AT BEDSIDE
--- NOTE | 2019-04-22 16:08 | NUR ---
LOAN CONSULTANT AT BEDSIDE
[2019-04-22 16:11] LABS: BASOPHILS % (AUTO) 0.6 % (0.0-2.0); EOSINOPHILS % (AUTO) 0.9 % (0.0-6.0); HEMATOCRIT 46 % (33-45); HEMOGLOBIN 14.8 g/dL (11.5-14.8); LYMPHOCYTES # (AUTO) 3.5 /CMM (0.8-4.8); LYMPHOCYTES % (AUTO) 47.8 % (20.0-44.0); MEAN CORPUSCULAR HGB CONC 32 g/dl (31.0-36.0); MEAN CORPUSCULAR VOLUME 118 fL (82-100); MONOCYTES # (AUTO) 0.4 /CMM (0.1-1.30); MONOCYTES % (AUTO) 5.1 % (2.0-12.0); NEUTROPHILS # (AUTO) 3.3 /CMM (1.8-8.9); NEUTROPHILS % (AUTO) 45.6 % (43.0-81.0); PLATELET COUNT (AUTO) 151 /CMM (150-450); RED BLOOD CELL COUNT(AUTO) 3.89 MIL/uL (4.0-5.2); WHITE BLOOD COUNT (AUTO) 7.3 K/uL (4.3-11.0)
[2019-04-22 16:19] LABS: CALCIUM, SERUM 9.2 mg/dL (8.5-10.1); CARBON DIOXIDE 21 mmol/L (21-32); CHLORIDE 98 mmol/L (98-107); CREATININE 4.4 mg/dL (0.6-1.3); GLUCOSE 115 mg/dL (74-106); POTASSIUM 3.9 mmol/L (3.5-5.1); SODIUM SERUM 131 mmol/L (136-145); UREA NITROGEN, BLOOD 26 mg/dL (7-18)
[2019-04-22 16:32] LABS: ALANINE AMINOTRANSFERASE 25 U/L (12-78); ALBUMIN 2.7 g/dL (3.4-5.0); ALKALINE PHOSPHATASE 195 U/L (46-116); ASPARTATE AMINOTRANSFERASE 40 U/L (15-37); B-TYPE NATRIURETIC PEPTIDE 4189 PG/ML (0-125); BILIRUBIN,DIRECT 0.3 mg/dL (0.0-0.2); BILIRUBIN,TOTAL 0.6 mg/dL (0.2-1.0); TOTAL PROTEIN, SERUM 6.3 g/dL (6.4-8.2)
--- NOTE | 2019-04-22 17:38 | NUR ---
CALLED [facility], PAGED ANNA JERNIGAN
[2019-04-22] MEDS ORDERED: MIDO10TA PO (17:43)
[2019-04-22] MEDS ORDERED: ACET-2605 PO (17:43)
[2019-04-22] MEDS ORDERED: AMIN30LI2 PO (17:43)
[2019-04-22 17:59] LABS: EOSINOPHILS % (MANUAL) 1 % (0-4); LYMPHOCYTES % (MANUAL) 35 % (16-48); MONOCYTES % (MANUAL) 4 % (0-11.0); NEUTROPHILS % (MANUAL) 60 (42-76)
--- NOTE | 2019-04-22 19:07 | NUR ---
CALLED [facility], PAGED DR JACKSON
--- NOTE | 2019-04-22 19:14 | NUR ---
[facility]
--- NOTE | 2019-04-22 19:32 | NUR ---
called nursing sup for tele bed
--- NOTE | 2019-04-22 19:34 | NUR ---
REC'D REPORT FOR TANIA LEES FOR LANDON. PT RESTING COMFORTABLY IN BED. VITAL SIGNS STABLE. NO ACUTE DISTRESS NOTED AT THIS TIME. WILL CONTINUE TO MONITOR
--- NOTE | 2019-04-22 19:34 | NUR ---
REPORT GIVEN TO PAMELA LEES FOR LANDON
--- NOTE | 2019-04-22 20:25 | NUR ---
GAVE REPORT TO NABEEL WILSON FOR LANDON
[2019-04-22 20:43] VITALS: BP 101/45
--- NOTE | 2019-04-22 20:45 | NUR ---
DIESEL AUTOMOTIVE TECHNICIANCLAIMS ASSISTANT NOTES PATIENT RECEIVED VIA GURNEY ACCOMPANIED BY ER STAFF. RECEIVED WITH O2 ON 4L, BREATHING EVEN AND UNLABORED, NO COMPLAINTS OF SOB. PATIENT IS A/O x2-3, POOR HISTORIAN AND SOMETIMES CONFUSED. IV LOCATED ON L HAND 22 G SL. PATIENT IS ON TELE READING SR IN THE 60'S. PATIENT HAS A R UPPER CHEST HD CATHETER THAT IS MALFUNCTIONED. BRUISES NOTED THROUGHOUT HER BODY. SKIN ASSESSMENT WAS DONE, PICTURES TAKEN AND PLACED IN CHART. BELONGINGS ACCOUNTED FOR. ORIENTED TO ROOM AND STAFF. SAFETY PRECAUTIONS IN PLACE WITH BED IN LOWEST POSITION, SIDE RAILS UP X2, BREAKS ON, AND CALL LIGHT WITHIN REACH. WILL CONTINUE TO MONITOR.
--- NOTE | 2019-04-22 20:46 | NUR ---
PT TRANSFERRED PER ACLS PROTOCOL
[2019-04-22] MEDS ORDERED: MAGNESIUM HYDROXIDE 30 ML UDC PO PRN (22:00)
[2019-04-22] MEDS ORDERED: IPRATROPIUM NEB FS 0.5 MG/2.5 ML AMPUL.NEB IH PRN (22:00)
[2019-04-22] MEDS ORDERED: MAG HYDROX/AL HYDROX/SIMETH 30 ML UDC PO PRN (22:00)
[2019-04-22] MEDS ORDERED: ACETAMINOPHEN 325 MG TABLET PO PRN (22:00)
[2019-04-22] MEDS ORDERED: HYDROCODONE/APAP 5/325MG 1 EACH TABLET PO PRN (22:00)
[2019-04-22] MEDS ORDERED: MINERAL OIL 133 ML (PYXIS) 1 EA ENEMA RC PRN (22:00)
[2019-04-22] MEDS ORDERED: ZOLPIDEM TARTRATE 5 MG TABLET PO PRN (22:00)
[2019-04-22] MEDS ORDERED: ALBUTEROL HALF STRENGTH 1.25 MG/3 ML VIAL.NEB IH PRN (22:00)
[2019-04-23] VITALS (7 sets, daily range): BP systolic 83–104; BP diastolic 50–66
--- NOTE | 2019-04-23 05:51 | NUR ---
MS RN CLOSING NOTES PATIENT IS CURRENTLY SLEEPING IN BED A/O x2-3. ON 2L O2 VIA NC, BREATHING EVEN AND UNLABORED, NO SOB NOTED. NO COMPLAINTS OF PAIN OR DISCOMFORT AT THE MOMENT. NO SIGNS OF ACUTE DISTRESS. PATIENT ON TELE READING SINUS CARMEN 50. IV LOCATED ON L HAND #22 SL. PATIENT KEPT CLEAN AND DRY THROUGHOUT THE NIGHT, ALL NEEDS ATTENDED TO. SAFETY PRECAUTIONS IN PLACE WITH BED IN LOWEST POSITION, BREAKS ON, SIDE RAILS UP X2. WILL ENDORSE TO ONCOMING SHIFT ABOUT LANDON.
[2019-04-23 07:21] LABS: BASOPHILS % (AUTO) 0.2 % (0.0-2.0); EOSINOPHILS % (AUTO) 0.7 % (0.0-6.0); HEMATOCRIT 41 % (33-45); HEMOGLOBIN 13.5 g/dL (11.5-14.8); LYMPHOCYTES # (AUTO) 2.5 /CMM (0.8-4.8); MEAN CORPUSCULAR HGB CONC 33 g/dl (31.0-36.0); MEAN CORPUSCULAR VOLUME 117 fL (82-100); MONOCYTES # (AUTO) 0.3 /CMM (0.1-1.30); NEUTROPHILS # (AUTO) 1.9 /CMM (1.8-8.9); NEUTROPHILS % (AUTO) 40.1 % (43.0-81.0); PLATELET COUNT (AUTO) 127 /CMM (150-450); WHITE BLOOD COUNT (AUTO) 4.8 K/uL (4.3-11.0)
--- NOTE | 2019-04-23 07:34 | NUR ---
CRYPTOGRAPHIC MACHINE OPERATOR OPENING NOTES RECEIVED PATIENT IN BED, AWAKE, A/O X2. PATIENT ON OXYGEN AT 3L/MIN BREATHING EVENLY WITH NO SIGNS OF SOB OR ANY ACUTE DISTRESS. PATIENT DENIES ANY PAIN AT THIS TIME. LFA SL GAUGE # 22 INTACT AND PATENT. NO SIGNS OF INFILTRATION NOTED AT THIS TIME. A MALFUNCTIONING HD CATHETER PRESENT ON RIGHT UPPER CHEST. DRESSING ON, CLEAN, INTACT. PATIENT IS ON EXTERNAL CARDIAC MONITORING WITH A CURRENT READING OF SB OF 56 BPM. SAFETY PRECAUTIONS IN PLACE: BED IN LOW POSITION AND LOCKED, RAILS UP X2, CALL LIGHT WITHIN REACH. WILL CONTINUE TO MONITOR PATIENT.
[2019-04-23 07:41] LABS: CALCIUM, SERUM 8.3 mg/dL (8.5-10.1); PHOSPHORUS 5.3 mg/dL (2.5-4.9); POTASSIUM 4.2 mmol/L (3.5-5.1)
[2019-04-23] MEDS: PANTOPRAZOLE 40 MG TABLET.DR PO SCH (08:04)
[2019-04-23 08:14] LABS: THYROID STIMULATING HORMONE 2.976 uIU/mL (0.358-3.74)
[2019-04-23] MEDS: ASPIRIN EC 81 MG TABLET.DR PO SCH (09:35)
[2019-04-23] MEDS: GABAPENTIN 100 MG CAPSULE PO SCH ×3 (09:35→16:34)
[2019-04-23] MEDS: POLYETHYLENE GLYCOL 3350 17 GM POWD.PACK PO SCH (09:35)
[2019-04-23] MEDS: FLUOXETINE HCL 20 MG CAPSULE PO SCH (09:36)
[2019-04-23] MEDS: FOLIC ACID 1 MG TABLET PO SCH (09:36)
[2019-04-23] MEDS: MIDODRINE HCL (5MG) 5 MG TABLET PO SCH ×4 (09:41→22:55)
[2019-04-23] MEDS: DOCUSATE SODIUM 250 MG CAPSULE PO SCH ×2 (09:41→16:34)
[2019-04-23] MEDS: OXYBUTYNIN CHLORIDE 5 MG TABLET PO SCH ×2 (09:56→16:35)
[2019-04-23] MEDS ORDERED: ALTEPLASE CATHFLO 2 MG/VIAL XX ONE (11:00)
--- NOTE | 2019-04-23 12:38 | NUR ---
MS RN NOTES ALTEPLASE ADMINISTERED BY HD NURSE RADHA AND STATED THAT HE WILL CHECK PERMA CATH PATENCY ON THE RIGHT UPPER CHEST. IF THE PORT IS OK, HE WILL DO DIALYSIS TOMORROW.
--- NOTE | 2019-04-23 17:40 | NUR ---
MS RN NOTES PATIENT SL ON L HAND GOT INFILTRATED. PATIENT ALSO STATED IT IS PAINFUL AND REQUESTED TO REMOVE IT. PATIENT IS HARD POKE. TWO TRIES TO INSERT A NEW LINE WITH ACCUVEIN WERE NOT SUCCESSFUL. ASKED ANOTHER RN TO TRY WELL BUT WAS NOT SUCCESSFUL WELL. MD FARTUN JERNIGAN NOTIFIED. AWAITING REPLY.
--- NOTE | 2019-04-23 18:41 | NUR ---
MS RN CLOSING NOTES PATIENT RESTING IN BED A/O X2. PATIENT ON OXYGEN THERAPY 3 L/MIN PER NASAL CANULA. BREATHING EVEN AND UNLABORED WITH NO SIGNS OF DISTRESS. NO SOB PRESENT AT THIS TIME. PATIENT DENIES ANY PAIN. L HAND SL GOT INFILTRATED AND IT WAS REMOVED. THERE WERE TWO UNSUCCESSFUL ATTEMPTS TO FIND A NEW LINE. ONE MORE NURSE TRIED TO FIND A NEW LINE BUT WAS ALSO UNSUCCESSFUL. MD NOTIFIED. SAFETY PRECAUTIONS IN PLACE; BED IN LOW POSITION AND LOCKED, RAILS UP X 2, CALL LIGHT WITHIN REACH. WILL ENDORSE TO PANTS PRESSER NURSE.
--- NOTE | 2019-04-23 19:53 | NUR ---
MS RN OPENING NOTES PATIENT RESTING IN BED, EASY TO AWAKEN. A/O 2-3. ON 3 L NC. NO S/S OF ACUTE RESPIRATORY DISTRESS. NO COMPLAINTS OF SOB OR PAIN. BILATERAL BRUISING PRESENT ON ARMS. NO IV ACCESS AT THIS TIME. VITAL SIGNS - BP: 91/51 HR: 63 RR: 18 TEMP: 97.9 SPO2: 100. BED LOCKED AND POSITIONED LOW MELENDEZ'S POSITION. CALL LIGHT WITHIN REACH. WILL CONTINUE TO MONITOR.
--- NOTE | 2019-04-23 22:25 | NUR ---
MS RN NOTES DR. JACKSON CALLED THROUGH [employer]. NOTIFIED ABOUT PATIENT'S LOW BP - 84/38
--- NOTE | 2019-04-23 22:55 | NUR ---
MS RN NOTES ADMINISTERED 10MG OF MIDODRINE PER MD ORDERS
[2019-04-24] VITALS (87 sets, daily range): BP systolic 64–121; BP diastolic 32–86
--- NOTE | 2019-04-24 01:30 | NUR ---
MS RN NOTES PATIENT BP 66/42. CALLED [facility] TO NOTIFY
--- NOTE | 2019-04-24 01:48 | NUR ---
MS RN NOTES PATIENT'S BP 68/40. IV BOLUS OF NS 500 ML STARTED.
--- NOTE | 2019-04-24 02:15 | NUR ---
MS RN NOTES PATIENT'S BP 95/51
[2019-04-24] MEDS ORDERED: IV NS 0.9% 500 ML IV ONE (02:30)
--- NOTE | 2019-04-24 03:12 | NUR ---
MS RN NOTES PATIENT'S BP 67/41. NOTIFIED MD THROUGH [employer]. ORDERS GIVEN TO TRANSFER TO [facility]
--- NOTE | 2019-04-24 03:35 | NUR ---
MS AUTO CLUTCH REBUILDER NOTES PATIENT TRANSFERRED TO ICU ROOM 259 FOR MONITORING OF BP. AWARE. REPORT GIVEN TO ICU NURSE, CORINNE.
--- NOTE | 2019-04-24 03:50 | NUR ---
PANEL WIRER PT WAS TRANSFERRED FROM ROOM 315 MED SURG. TO ICU D/T HYPOTENSION, EVEN AFTER 500 ML OF NS BOLUS IV GIVEN ON THE FLOOR. PT IS AWAKE, ALERT, ORIENTED. C/O NO SOB, PAIN OR ANY OTHER DISCOMFORT. BP IS BORDERLINE. D-R SUNNY WAS CALLED & ASKED FOR THE ORDERS. HE STATES- JUST MONITOR THE PATIENT & DO NOT START ANY PRESSORS AND DO NOT GIVE MORE IV BOLUS.
--- NOTE | 2019-04-24 04:00 | NUR ---
RN NOTES 03:40 AM RECEIVED PATIENT TRANSFERRED FROM [facility] DUE TO HYPOTENSION AFTER GIVING IVF NS 500ML AND ADDITIONAL MIDODRINE. PATIENT IS AOX 2-3. NO ACUTE RESPIRATORY DISTRESS ON O2 3LPM VIA NC. SATURATION 100%. NSR WITH BBB ON TELE MONITOR. IV SITE ON LH G 22 INTACT AND PATENT RCW HD CATH WITH CLEAN DRESSING. KEPT PT CLEAN AND DRY. CALL LIGHT KEPT WITHIN EASY REACH, INSTRUCTION PROVIDED. WILL CLOSELY MONITOR. 0400 AM - AT THIS TIME PATIENT BP IS 95/60 MMHG. NNO FROM
[2019-04-24 05:17] LABS: BASOPHILS % (AUTO) 0.4 % (0.0-2.0); EOSINOPHILS % (AUTO) 0.4 % (0.0-6.0); HEMATOCRIT 44 % (33-45); HEMOGLOBIN 14.4 g/dL (11.5-14.8); MEAN CORPUSCULAR HGB CONC 33 g/dl (31.0-36.0); MEAN CORPUSCULAR VOLUME 118 fL (82-100); MONOCYTES # (AUTO) 0.5 /CMM (0.1-1.30); MONOCYTES % (AUTO) 6.2 % (2.0-12.0); PLATELET COUNT (AUTO) 142 /CMM (150-450); RED BLOOD CELL COUNT(AUTO) 3.75 MIL/uL (4.0-5.2); WHITE BLOOD COUNT (AUTO) 7.6 K/uL (4.3-11.0)
[2019-04-24 05:27] LABS: CALCIUM, SERUM 8.3 mg/dL (8.5-10.1); CREATININE 5.9 mg/dL (0.6-1.3); MAGNESIUM 2.1 mg/dL (1.8-2.4); PHOSPHORUS 5.6 mg/dL (2.5-4.9); POTASSIUM 4.8 mmol/L (3.5-5.1)
--- NOTE | 2019-04-24 06:00 | NUR ---
RN NOTES CALLED DR. CORREA TO INFORMED REGARDING SBP IS DOWN TO 60-70'S. AND MAP DOWN TO 50'S, WAITED TO CALL BACK
--- NOTE | 2019-04-24 06:40 | NUR ---
RN NOTES DR. ARREOLA CALLED BACK AT THIS TIME AND UPDATE REGARDING PATIENT SBP REMAINED LOW TO 70-80'S, DEPSITE OF PUTTING PATIENT ON [place] POSITION AND RECHECKING BP ON A DIFFERENT SIDE. PATIENT IS ASYMPTOMATIC. REMAINED AOX2-3. NNO AT THIS TIME, PER MD NO PRESSORS NO IVF AND PATIENT WILL HAVE DIALYSIS TODAY AND WILL GO HOME.
--- NOTE | 2019-04-24 07:05 | NUR ---
RN NOTES RECEIVED PT ON BED, A/Ox2 , ON 3 L OR2 N/C , NO SOB NOTED, BLOOD PRESSURE SYSTOLIC IN 80'S , MD AWARE PER PM NURSE REPORT, PT IS ASYMPTOMATIC, NO DISTRESS NOTED, ON TELE SR- SB , L HAND IV SITE G 22 CLEAN., DRY AND INTACT, SR UP x3, CALL LIGHT WITHIN EASY REACH, BED LOCKED AND IN LOWEST POSITION, CONTINUE TO MONITOR.
[2019-04-24] MEDS: ASPIRIN EC 81 MG TABLET.DR PO SCH (08:20)
[2019-04-24] MEDS: FOLIC ACID 1 MG TABLET PO SCH (08:20)
[2019-04-24] MEDS: PANTOPRAZOLE 40 MG TABLET.DR PO SCH (08:20)
[2019-04-24] MEDS: POLYETHYLENE GLYCOL 3350 17 GM POWD.PACK PO SCH (08:20)
[2019-04-24] MEDS: DOCUSATE SODIUM 250 MG CAPSULE PO SCH ×2 (08:20→16:23)
[2019-04-24] MEDS: OXYBUTYNIN CHLORIDE 5 MG TABLET PO SCH ×2 (08:21→16:23)
[2019-04-24] MEDS: FLUOXETINE HCL 20 MG CAPSULE PO SCH (08:21)
[2019-04-24] MEDS: GABAPENTIN 100 MG CAPSULE PO SCH ×3 (08:21→16:23)
[2019-04-24] MEDS: MIDODRINE HCL (5MG) 5 MG TABLET PO SCH ×3 (08:39→16:25)
--- NOTE | 2019-04-24 13:00 | NUR ---
RN NOTES BP STILL LOW , AWAITING FOR PICC LINE PLACEMENT TO START LEVO , PT IS ASYMPTOMATIC, CONTINUE TO MONITOR
[2019-04-24] MEDS: NOREPINEPHRINE 8 MG in IV D5W 500 ML IV PRN (13:20)
[2019-04-24] MEDS: ONDANSETRON HCL/PF 4 MG/2 ML VIAL IVP PRN (17:42)
--- NOTE | 2019-04-24 18:00 | NUR ---
RN NOTES PT ON LEVO GTT AT THIS TIME, VSS STABLE, NO SIGNIFICANT CHANGES NOTED ON THIS SHIFT, WILL ENDORSE TO PARTICLEBOARD FACTORY WORKER NURSE FOR CONTINUITY OF CARE .
--- NOTE | 2019-04-24 19:40 | NUR ---
RN NOTES RECEIVED PT AWAKE AOX2-3 WITH O2 3LPM VIA NC SATURATION 100%. NSR ON TELE MONITOR. WITH BBB. IV SITE ON LH AND MICHAEL PICC LINE INTACT AND PATENT RUNNING WITH LEVOPHED @ 4 MCG/MIN TITRATED ORDERED. RCW HD CATH WITH CLEAN DRESSING. TURNED AND REPOSITIONED FOR SKIN MGMT. OFFLOADED EXT WITH PILLOWS. KEPT PT CLEAN AND DRY. CALL LIGHT KEPT WITHIN EASY REACH.
--- NOTE | 2019-04-24 20:00 | NUR ---
RN NOTES 1944 PM - ALTEPLASE GIVEN BY FESTUS RAMIREZ RN
[2019-04-24] MEDS ORDERED: ALTEPLASE CATHFLO 2 MG/VIAL XX ONE (22:00)
[2019-04-25] VITALS (95 sets, daily range): BP systolic 73–141; BP diastolic 28–78
--- NOTE | 2019-04-25 06:53 | NUR ---
RN NOTES NO SIGNIFICANT CHANGES TROUGHOUT THE SHIFT. CONTINUE ON LEVOPHED @ 12 MCG/MIN TITRATED PROTOCOL ORDERED. PATIENT IS ASYMPTOMATIC REMAINED AOX2-3. NO SOB OR DISTRESS. O2 3LPM VIA NC TOLERATED WELL. AFEBRILE. VSS WITH PRESSORS. KEPT PT CLEAN AND DRY. BED LOCKED AND SECURED. CALL LIGHT KEPT WITHIN EASY REACH.
[2019-04-25] MEDS: NOREPINEPHRINE 8 MG in IV D5W 500 ML IV PRN ×2 (07:09→21:03)
--- NOTE | 2019-04-25 07:23 | NUR ---
RN NOTES RECEIVED PT ON BED, A/O X2-3 WITH O2 3LPM VIA NC SATURATION 100%. NSR ON TELE MONITOR. WITH BBB. IV SITE ON LH AND MICHAEL PICC LINE INTACT AND PATENT RUNNING WITH LEVOPHED @ 12 MCG/MIN TITRATED ORDERED. RCW HD CATH WITH CLEAN DRESSING. TURNED AND REPOSITIONED , SR UP x3, CALL LIGHT WITHIN EASY REACH, OFFLOADED EXT WITH PILLOWS. KEPT PT CLEAN AND DRY. CALL LIGHT KEPT WITHIN EASY REACH CONTINUE TO MONITOR .
[2019-04-25 07:53] LABS: BASOPHILS % (AUTO) 0.2 % (0.0-2.0); EOSINOPHILS % (AUTO) 0.2 % (0.0-6.0); HEMATOCRIT 40 % (33-45); HEMOGLOBIN 13.2 g/dL (11.5-14.8); LYMPHOCYTES # (AUTO) 2.8 /CMM (0.8-4.8); MEAN CORPUSCULAR HGB CONC 33 g/dl (31.0-36.0); MEAN CORPUSCULAR VOLUME 115 fL (82-100); MONOCYTES # (AUTO) 0.5 /CMM (0.1-1.30); MONOCYTES % (AUTO) 6.1 % (2.0-12.0); NEUTROPHILS # (AUTO) 4.9 /CMM (1.8-8.9); NEUTROPHILS % (AUTO) 59.5 % (43.0-81.0); PLATELET COUNT (AUTO) 133 /CMM (150-450); RED BLOOD CELL COUNT(AUTO) 3.45 MIL/uL (4.0-5.2); WHITE BLOOD COUNT (AUTO) 8.2 K/uL (4.3-11.0)
[2019-04-25 08:07] LABS: CALCIUM, SERUM 7.9 mg/dL (8.5-10.1); CREATININE 6.2 mg/dL (0.6-1.3); POTASSIUM 4.1 mmol/L (3.5-5.1)
--- NOTE | 2019-04-25 08:09 | NUR ---
WOUND CARE CONSULT: PT PRESENTS WITH MULTIPLE SKIN ISSUES INCLUDING BRUISING/DISCOLORATION TO SKIN WITH FRAGILE SKIN, SACRAL DEEP TISSUE INJURY WHICH IS INTACT AND EXTENDS TO BUTTOCK, LEFT LOWER BUTTOCK INCONTINENCE ASSOCIATED SKIN DAMAGE, INTACT DEEP TISSUE INJURY TO RT HEEL AND SCAR TO LEFT HEEL, ALL PRESENT ON ADMISSION. RECOMMENDATIONS MADE FOR SKIN PROTECTION AND WOUND CARE. DISCUSSED WITH NURSING STAFF. LOW AIRLOSS BED TO BE PLACED (ISOFLEX). WILL SEE PRN. ETIENNE IN AGREEMENT WITH PLAN OF CARE. PT IS INCONTINENT. CURRENT RUFINO SCORE IS 13. Addendum: 04/25/19 at 0811 by BRUNO MCKAY WNDNU Amended: Links added.
[2019-04-25] MEDS: OXYBUTYNIN CHLORIDE 5 MG TABLET PO SCH ×2 (08:45→16:08)
[2019-04-25] MEDS: FOLIC ACID 1 MG TABLET PO SCH (08:45)
[2019-04-25] MEDS: PANTOPRAZOLE 40 MG TABLET.DR PO SCH (08:45)
[2019-04-25] MEDS: DOCUSATE SODIUM 250 MG CAPSULE PO SCH ×2 (08:45→16:08)
[2019-04-25] MEDS: FLUOXETINE HCL 20 MG CAPSULE PO SCH (08:45)
[2019-04-25] MEDS: GABAPENTIN 100 MG CAPSULE PO SCH ×3 (08:45→16:08)
[2019-04-25] MEDS: ASPIRIN EC 81 MG TABLET.DR PO SCH (08:46)
[2019-04-25] MEDS: POLYETHYLENE GLYCOL 3350 17 GM POWD.PACK PO SCH (08:47)
[2019-04-25] MEDS: MIDODRINE HCL (5MG) 5 MG TABLET PO SCH ×3 (08:47→16:08)
--- NOTE | 2019-04-25 09:00 | NUR ---
RN NOTES DR DAY AND MICHAEL AWARE OF THE MORNING LAB RESULTS .
[2019-04-25 11:21] LABS: APPEARANCE,URINE CLOUDY (CLEAR); BILIRUBIN,URINE NEGATIVE (NEGATIVE); BLOOD, URINE MODERATE Ery/uL (NEGATIVE); COLOR,URINE YELLOW (YELLOW); KETONES,URINE NEGATIVE (NEGATIVE); LEUKOCYTE ESTERASE ,URINE MODERATE (NEGATIVE); NITRITE, URINE NEGATIVE (NEGATIVE); PROTEIN,URINE >=300 mg/dl (NEGATIVE); UGLUCOSE 100 MG/DL mg/dL (NEGATIVE); UROBILINOGEN,URINE 0.2 EU/dL (0.2)
[2019-04-25 11:45] LABS: WBC,URINE TOO NUMEROUS TO COUN /HPF (0-3)
[2019-04-25 11:46] LABS: BACTERIA,URINE Few /HPF (None Seen)
[2019-04-25 11:47] LABS: SQUAMOUS EPITHELIAL CELL,UR Few /HPF (None Seen)
[2019-04-25] MEDS: Z GUARD REMEDY 2 OZ OINT TP PRN (16:12)
--- NOTE | 2019-04-25 18:00 | NUR ---
RN NOTES PT STILL ON LEVO GTT, PT RECEIVED HD PER HD NURSE REPORT, NO FLUID OUT , NO SIGNIFICANT CHANGES NOTED ON THIS SHIFT , WILL ENDOSE TO RN OBGYN NURSE FOR CONTINUITY OF CARE .
--- NOTE | 2019-04-25 19:00 | NUR ---
RECEIVED PATIENT DROWSY BUT AROUSABLE,OPENS EYES ANSWERS TO NAME CALLING, ORIENTED SEEMS COHERENT AND APPROPRIATE BUT VERY WEAK AND TIRED LOOKING,EASILY FALLS BACK TO SLEEP.NOT IN ANY RESPIRATORY DISTRESS BUT BREATHING SHALLOW ,ON ROOM AIR . ON LEVOPHED DRIP FOR BP SUPPORT INFUSING VIA PICC LINE @ MICHAEL. NOTED MULTIPLE BRUISES/ECCHYMOSIS ALL OVER THE BODY ,+ EDEMA OF LOWER EXTREMITIES. COMFORT CARE DONE,NEEDS ATTENDED.
--- NOTE | 2019-04-25 22:15 | NUR ---
ATTEMPTED TO WEAN DOWN LEVOPHED DRIP TO 6 MCG/MIN.BP DROPPED IN THE 80'S WITHIN 15 MINS. LEVPHED DRIP INCREASED BACK TO 8 MCG/MIN.
[2019-04-26] VITALS (93 sets, daily range): BP systolic 86–118; BP diastolic 42–75
--- NOTE | 2019-04-26 | NUR ---
STATUS UNCHANGED ,REMAINS DROWSY,AROUSABLE BUT EASILY FALLS BACK TO SLEEP.STILL ON LEVOPHED DRIP FOR BP SUPPORT.
[2019-04-26 03:55] LABS: BASOPHILS % (AUTO) 0.3 % (0.0-2.0); EOSINOPHILS % (AUTO) 0.3 % (0.0-6.0); HEMATOCRIT 40 % (33-45); HEMOGLOBIN 13.2 g/dL (11.5-14.8); LYMPHOCYTES # (AUTO) 3.1 /CMM (0.8-4.8); LYMPHOCYTES % (AUTO) 38.9 % (20.0-44.0); MEAN CORPUSCULAR HGB CONC 33 g/dl (31.0-36.0); MEAN CORPUSCULAR VOLUME 116 fL (82-100); MONOCYTES # (AUTO) 0.5 /CMM (0.1-1.30); MONOCYTES % (AUTO) 6.4 % (2.0-12.0); NEUTROPHILS # (AUTO) 4.3 /CMM (1.8-8.9); NEUTROPHILS % (AUTO) 54.1 % (43.0-81.0); PLATELET COUNT (AUTO) 115 /CMM (150-450); RED BLOOD CELL COUNT(AUTO) 3.43 MIL/uL (4.0-5.2)
[2019-04-26 03:58] LABS: CALCIUM, SERUM 8.6 mg/dL (8.5-10.1); CREATININE 4.9 mg/dL (0.6-1.3); POTASSIUM 3.7 mmol/L (3.5-5.1)
--- NOTE | 2019-04-26 06:00 | NUR ---
remains drowsy,easily awakens,follows commands.Still on Levophed drip,BP very sensitive to Levo, drops in the 80's systolic every time Levophed drip is attempted to decrease dose. 0700 Endorsed to Camille LEES.
--- NOTE | 2019-04-26 07:05 | NUR ---
RN NOTES RECEIVED PATIENT ON BED, DROWSY BUT AROUSABLE,OPENS EYES ANSWERS TO NAME CALLING, ORIENTED x2-3 , NO DISTRESS NOTED, ON ROOM AIR . ON LEVOPHED DRIP FOR BP SUPPORT INFUSING VIA PICC LINE @ MICHAEL. NOTED MULTIPLE BRUISES/ECCHYMOSIS ALL OVER THE BODY ,+ EDEMA OF LOWER EXTREMITIES. SR UPx3, CALL LIGHT WITHIN EASY REACH, BED LOCKED AND IN LOWEST POSITION, CONTINUE TO MONITOR .
[2019-04-26] MEDS: NOREPINEPHRINE 8 MG in IV D5W 500 ML IV PRN ×2 (07:38→17:02)
[2019-04-26] MEDS: OXYBUTYNIN CHLORIDE 5 MG TABLET PO SCH ×2 (08:32→16:15)
[2019-04-26] MEDS: DOCUSATE SODIUM 250 MG CAPSULE PO SCH ×2 (08:32→16:16)
[2019-04-26] MEDS: GABAPENTIN 100 MG CAPSULE PO SCH ×3 (08:32→16:15)
[2019-04-26] MEDS: FOLIC ACID 1 MG TABLET PO SCH (08:32)
[2019-04-26] MEDS: PANTOPRAZOLE 40 MG TABLET.DR PO SCH (08:32)
[2019-04-26] MEDS: ASPIRIN EC 81 MG TABLET.DR PO SCH (08:32)
[2019-04-26] MEDS: MIDODRINE HCL (5MG) 5 MG TABLET PO SCH ×3 (08:33→16:16)
[2019-04-26] MEDS: FLUOXETINE HCL 20 MG CAPSULE PO SCH (08:35)
[2019-04-26] MEDS: POLYETHYLENE GLYCOL 3350 17 GM POWD.PACK PO SCH (08:36)
--- NOTE | 2019-04-26 12:00 | NUR ---
RN NOTES PT ON LEVO GTT , VSS STABLE, CONTINUE TO MONITOR .
[2019-04-26] MEDS: ONDANSETRON HCL/PF 4 MG/2 ML VIAL IVP PRN (17:54)
--- NOTE | 2019-04-26 18:00 | NUR ---
RN NOTES LEVO AT 8MCG/MIN AT THIS TIME BP WNL, R UPPER ARM PICC LINE SITE CLEAN,DRY INTACT, SR UP X3, CALL LIGHT WITHIN EASY REACH, NO SIGNIFICANT CHANGES NOTED ON THIS SHIFT, WILL ENDORSE TO IRONER HAND NURSE FOR CONTINUITY OF CARE .
--- NOTE | 2019-04-26 19:30 | NUR ---
CASHIER ASSOCIATE RCD PT W/DX HYPOTENSION; PT IS ALERT/ORIENTED x2; PT IS PASSIVE TOWARDS TREATMENT. NSR ON MONITOR. ON LEVOPHED AT 8 MCG/MIN WILL TITRATE ACCORDINGLY. PT WITH MULTIPLE ECCHYMOSIS THROUGH ARMS AND CHEST. TURN AND REPOSITION WITH CARE. CONTINUE TO MONITOR. PLAN FOR HD FOR TOMORROW.
[2019-04-27] VITALS (102 sets, daily range): BP systolic 78–154; BP diastolic 39–118
--- NOTE | 2019-04-27 04:00 | NUR ---
HIGH HEEL BUILDER RENDERED COMPLETE BED BATH; PT TOLERATED WELL. WOUND TREATMENT DONE ORDERED.
[2019-04-27 04:39] LABS: BASOPHILS % (AUTO) 0.4 % (0.0-2.0); EOSINOPHILS % (AUTO) 0.2 % (0.0-6.0); HEMATOCRIT 37 % (33-45); HEMOGLOBIN 12.3 g/dL (11.5-14.8); LYMPHOCYTES # (AUTO) 3.7 /CMM (0.8-4.8); MEAN CORPUSCULAR HGB CONC 33 g/dl (31.0-36.0); MEAN CORPUSCULAR VOLUME 115 fL (82-100); MONOCYTES # (AUTO) 0.6 /CMM (0.1-1.30); NEUTROPHILS # (AUTO) 5.1 /CMM (1.8-8.9); NEUTROPHILS % (AUTO) 54.4 % (43.0-81.0); PLATELET COUNT (AUTO) 112 /CMM (150-450); RED BLOOD CELL COUNT(AUTO) 3.23 MIL/uL (4.0-5.2); WHITE BLOOD COUNT (AUTO) 9.4 K/uL (4.3-11.0)
[2019-04-27 04:47] LABS: CALCIUM, SERUM 7.8 mg/dL (8.5-10.1); CREATININE 5.4 mg/dL (0.6-1.3); POTASSIUM 3.5 mmol/L (3.5-5.1)
--- NOTE | 2019-04-27 06:34 | NUR ---
CAUSTIC ROOM OPERATOR PT REMAINED ON LEVOPHED AT 8 MCG/MIN; UNABLE TO TITRATE DOWN.
--- NOTE | 2019-04-27 07:30 | NUR ---
DATACAP DEVELOPER INITIAL NOTE RECEIVED PATIENT DROWSY. ALERT AND ORIENTED. NO DISTRESS NOTED, ON ROOM AIR. ON TELE MONITOR SR. WITH MICHAEL PICC LINE, PATENT, AND INTACT, LEVO AT 8MCG/MIN. SIDE RAILS UP AND LOCKED. BED KEPT AT LOWEST POSITION. CALL LIGHT KEPT WITHIN EASY REACH. WILL CONTINUE TO MONITOR.
[2019-04-27] MEDS: FLUOXETINE HCL 20 MG CAPSULE PO SCH (08:02)
[2019-04-27] MEDS: DOCUSATE SODIUM 250 MG CAPSULE PO SCH ×2 (08:02→17:08)
[2019-04-27] MEDS: MIDODRINE HCL (5MG) 5 MG TABLET PO SCH ×3 (08:03→17:08)
[2019-04-27] MEDS: ASPIRIN EC 81 MG TABLET.DR PO SCH (08:03)
[2019-04-27] MEDS: FOLIC ACID 1 MG TABLET PO SCH (08:03)
[2019-04-27] MEDS: OXYBUTYNIN CHLORIDE 5 MG TABLET PO SCH ×2 (08:04→17:08)
[2019-04-27] MEDS: PANTOPRAZOLE 40 MG TABLET.DR PO SCH (08:04)
[2019-04-27] MEDS: GABAPENTIN 100 MG CAPSULE PO SCH ×3 (08:04→17:08)
[2019-04-27] MEDS: POLYETHYLENE GLYCOL 3350 17 GM POWD.PACK PO SCH (08:04)
--- NOTE | 2019-04-27 08:41 | NUR ---
PLANNING ENGINEER NOTE SEEN AND EXAMINED BY DR. DAY
[2019-04-27] MEDS: NOREPINEPHRINE 8 MG in IV D5W 500 ML IV PRN ×2 (09:12→23:05)
--- NOTE | 2019-04-27 17:15 | NUR ---
CODING QUALITY ANALYST NOTE DIALYSIS NURSE AT BEDSIDE, WILL TITRATE LEVO PER PROTOCOL. PATIENT C/O NAUSEA DURING DIALYSIS, PRN ZOFRAN GIVEN. WILL CONTINUE TO MONITOR.
[2019-04-27] MEDS: ONDANSETRON HCL/PF 4 MG/2 ML VIAL IVP PRN (17:18)
--- NOTE | 2019-04-27 18:35 | NUR ---
DREDGE PIPEMAN NOTE PATIENT COMPLETED DIALYSIS WITH 1LITER TAKEN OUT.
--- NOTE | 2019-04-27 19:30 | NUR ---
OBSTETRICS GYN PHYSICIAN CLOSING NOTE NO SIGNIFICANT CHANGES. KEPT CLEAN AND DRY. TURNED AND REPOSITIONED. NO RESPIRATORY DISTRESS NOTED, TOLERATING ROOM AIR. ON LEVO AT 12MCG/ MIN. SIDE RAILS UP AND LOCKED. BED KEPT LOWEST POSITION. CALL LIGHT KEPT WITHIN EASY REACH. CONTINUITY OF CARE ENDORSED TO PM NURSE.
--- NOTE | 2019-04-27 19:35 | NUR ---
SET UP MECHANIC INITIAL SHIFT NOTES RECEIVED PATIENT IN BED, ASLEEP, EASILY AWOKEN TO NAME AND LIGHT TAP ON HAND. PATIENT IS ALERT AND ORIENTED X2, PASSIVE. TOLERATING ROOM AIR WELL, FREE FROM ANY S/S OF RESPIRATORY DISTRESS. MICHAEL PICC PATENT AND INTACT, LEVOPHED GTT CURRENTLY @ 14MCG, WILL TITRATE ACCORDINGLY. DIAPER CLEAN/DRY/INTACT AT THIS TIME. CALL LIGHT WITHIN EASY REACH, BED IN LOWEST AND LOCKED POSITION. WILL CONTINUE TO CLOSELY MONITOR
[2019-04-28] VITALS (62 sets, daily range): BP systolic 75–140; BP diastolic 44–93
--- NOTE | 2019-04-28 04:00 | NUR ---
BACK STAYER NOTES FULL BED BATH GIVEN, PATIENT TOLERATED WELL. CONTINUES ON LEVOPHED GTT @ 14MCG/MIN. WILL CONTINUE TO CLOSELY MONITOR
[2019-04-28 04:21] LABS: BASOPHILS % (AUTO) 0.3 % (0.0-2.0); EOSINOPHILS % (AUTO) 0.1 % (0.0-6.0); HEMATOCRIT 40 % (33-45); HEMOGLOBIN 12.9 g/dL (11.5-14.8); LYMPHOCYTES # (AUTO) 3.4 /CMM (0.8-4.8); LYMPHOCYTES % (AUTO) 32.5 % (20.0-44.0); MEAN CORPUSCULAR HGB CONC 33 g/dl (31.0-36.0); MEAN CORPUSCULAR VOLUME 115 fL (82-100); MONOCYTES # (AUTO) 0.7 /CMM (0.1-1.30); MONOCYTES % (AUTO) 6.3 % (2.0-12.0); NEUTROPHILS # (AUTO) 6.4 /CMM (1.8-8.9); NEUTROPHILS % (AUTO) 60.8 % (43.0-81.0); PLATELET COUNT (AUTO) 97 /CMM (150-450); RED BLOOD CELL COUNT(AUTO) 3.44 MIL/uL (4.0-5.2); WHITE BLOOD COUNT (AUTO) 10.5 K/uL (4.3-11.0)
[2019-04-28 04:37] LABS: CALCIUM, SERUM 7.7 mg/dL (8.5-10.1); CREATININE 4.5 mg/dL (0.6-1.3); POTASSIUM 3.4 mmol/L (3.5-5.1)
[2019-04-28 06:07] LABS: LYMPHOCYTES % (MANUAL) 27 % (16-48); NEUTROPHILS % (MANUAL) 70 (42-76)
[2019-04-28 06:09] LABS: MONOCYTES % (MANUAL) 3 % (0-11.0)
--- NOTE | 2019-04-28 07:00 | NUR ---
DENTAL TECHNOLOGY ADVISOR CLSOIGN NOTES PATIENT RESTING IN BED, APPEARS COMFORTABLE. NO ACUTE CHANGES THROUGHOUT THE SHIFT, LEVOPHED GTT TITRATED TO 14MCG. WILL ENDORSE THE PATIENT TO THE AM SHIFT NURSE FOR CONTINUITY OF CARE
--- NOTE | 2019-04-28 08:17 | NUR ---
received pt from junior network administrator, alert,follows commands, fatigued, SR, RA, tolerates diet, eats very little, HD patient, diaper on, receiving levo at 14mcg, v/s stable, no pain, pt turned and repositioned.
[2019-04-28] MEDS: ASPIRIN EC 81 MG TABLET.DR PO SCH (08:25)
[2019-04-28] MEDS: FLUOXETINE HCL 20 MG CAPSULE PO SCH (08:25)
[2019-04-28] MEDS: POLYETHYLENE GLYCOL 3350 17 GM POWD.PACK PO SCH (08:25)
[2019-04-28] MEDS: DOCUSATE SODIUM 250 MG CAPSULE PO SCH ×2 (08:25→17:08)
[2019-04-28] MEDS: FOLIC ACID 1 MG TABLET PO SCH (08:25)
[2019-04-28] MEDS: GABAPENTIN 100 MG CAPSULE PO SCH ×3 (08:25→17:08)
[2019-04-28] MEDS: PANTOPRAZOLE 40 MG TABLET.DR PO SCH (08:25)
[2019-04-28] MEDS: MIDODRINE HCL (5MG) 5 MG TABLET PO SCH ×3 (08:25→17:09)
[2019-04-28] MEDS: OXYBUTYNIN CHLORIDE 5 MG TABLET PO SCH ×2 (08:25→17:09)
[2019-04-28] MEDS: NOREPINEPHRINE 8 MG in IV D5W 500 ML IV PRN (09:29)
--- NOTE | 2019-04-28 16:47 | NUR ---
pt is resting in the bed, alert, follows commands, SR, RA, v/s stable, no pain, pt cleaned, changed and repositioned.
--- NOTE | 2019-04-28 19:00 | NUR ---
EARTH MOVER INITIAL NOTE RECEIVED PATIENT DROWSY. ALERT AND ORIENTED. NO DISTRESS NOTED, ON ROOM AIR. ON TELE MONITOR SR. WITH MICHAEL PICC LINE, PATENT, AND INTACT, LEVO AT 12MCG/MIN SIDE RAILS UP AND LOCKED. BED KEPT AT LOWEST POSITION. CALL LIGHT KEPT WITHIN EASY REACH. WILL CONTINUE TO MONITOR. ALL NEEDS ATTENDED TOO , FOR HD CATH PLACEMENT IN AM , NPO POST MN INSTRUCTED.WILL CONTINUE TO MONITOR PTS.
--- NOTE | 2019-04-28 20:00 | NUR ---
V/S BP 79/44 HR 89 RR 12, LEVO INCREASE TO 14 MCG /MIN , BP RECHECK AT 2015 HRS BP115/70 WILL CONTINUE TO MONITOR.
[2019-04-28] MEDS: NOREPINEPHRINE 16 MG in IV D5W 500 ML IV PRN (20:54)
--- NOTE | 2019-04-28 20:54 | NUR ---
SITE FOR LEVO LINE IS ON RIGHT UPPER ARM NOT RIGHT CHEST WALL.
[2019-04-29] VITALS (51 sets, daily range): BP systolic 70–135; BP diastolic 48–98
--- NOTE | 2019-04-29 04:00 | NUR ---
Morning care rendered , pts remains on tele sr no sob no distress noted, npo maintained, Pt for hd cath placement today , will endorse to rn day shift for continuity of care.
[2019-04-29 04:56] LABS: BASOPHILS % (AUTO) 0.3 % (0.0-2.0); EOSINOPHILS % (AUTO) 0.2 % (0.0-6.0); HEMATOCRIT 38 % (33-45); HEMOGLOBIN 12.8 g/dL (11.5-14.8); LYMPHOCYTES # (AUTO) 2.9 /CMM (0.8-4.8); LYMPHOCYTES % (AUTO) 31.5 % (20.0-44.0); MEAN CORPUSCULAR HGB CONC 34 g/dl (31.0-36.0); MEAN CORPUSCULAR VOLUME 112 fL (82-100); MONOCYTES # (AUTO) 0.7 /CMM (0.1-1.30); MONOCYTES % (AUTO) 7.4 % (2.0-12.0); NEUTROPHILS # (AUTO) 5.6 /CMM (1.8-8.9); NEUTROPHILS % (AUTO) 60.6 % (43.0-81.0); PLATELET COUNT (AUTO) 106 /CMM (150-450); RED BLOOD CELL COUNT(AUTO) 3.37 MIL/uL (4.0-5.2); WHITE BLOOD COUNT (AUTO) 9.3 K/uL (4.3-11.0)
[2019-04-29 05:19] LABS: POTASSIUM 3.6 mmol/L (3.5-5.1)
--- NOTE | 2019-04-29 08:23 | NUR ---
received pt from mine shifter, alert, follows commands, fatigued, SR, on levo at 14mcg, RA, sat well, NPO for procedure, dialysis patient, v/s stable, no pain, pt turned and repositioned.
[2019-04-29] MEDS: FOLIC ACID 1 MG TABLET PO SCH (08:30)
[2019-04-29] MEDS: OXYBUTYNIN CHLORIDE 5 MG TABLET PO SCH ×2 (08:30→16:34)
[2019-04-29] MEDS: PANTOPRAZOLE 40 MG TABLET.DR PO SCH (08:30)
[2019-04-29] MEDS: ASPIRIN EC 81 MG TABLET.DR PO SCH (08:30)
[2019-04-29] MEDS: MIDODRINE HCL (5MG) 5 MG TABLET PO SCH ×3 (08:30→16:35)
[2019-04-29] MEDS: DOCUSATE SODIUM 250 MG CAPSULE PO SCH ×2 (08:30→16:34)
[2019-04-29] MEDS: POLYETHYLENE GLYCOL 3350 17 GM POWD.PACK PO SCH (08:30)
[2019-04-29] MEDS: GABAPENTIN 100 MG CAPSULE PO SCH ×3 (08:30→16:34)
[2019-04-29] MEDS: FLUOXETINE HCL 20 MG CAPSULE PO SCH (08:30)
[2019-04-29] MEDS ORDERED: HEPARIN SODIUM, PORCINE 1,000 UNIT/ML VIAL ONE (09:40)
[2019-04-29] MEDS ORDERED: LIDOCAINE HCL/MPF 1% 30 ML VIAL IJ ONE (09:40)
[2019-04-29] MEDS ORDERED: IOHEXOL 240MG/ML 50 ML IV ONE ×2 (09:41→11:17)
--- NOTE | 2019-04-29 11:00 | NUR ---
pt is taken to OR for HD cath replacement. Alert, follows commands, on levo at 14mcg, v/s stable, no pain.
[2019-04-29] MEDS ORDERED: FENTANYL PF 100MCG/2ML AMPUL ONE (11:25)
--- NOTE | 2019-04-29 12:10 | NUR ---
pt back from surgery with replaced HD catheter, still sedated, BP 78/52, HR 79 NSR, sat 99% on simple mask at 5L, RR 21, on levo at 14mcg.
[2019-04-29] MEDS: NOREPINEPHRINE 16 MG in IV D5W 500 ML IV PRN (12:53)
--- NOTE | 2019-04-29 13:20 | NUR ---
pt is alert, follows commands, on RA sat 97%, v/s stable, no pain.
--- NOTE | 2019-04-29 16:23 | NUR ---
pt is resting in the bed, alert, follows commands, SR, RA, having HD, v/s stable, no pain, pt cleaned, changed and repositioned.
[2019-04-29] MEDS: ANCEF 1 GM/50 ML D5W IV SCH ×2 (19:40)
[2019-04-29] MEDS ORDERED: CEFAZOLIN 1 GM in IV D5W 50 ML IV SCH (20:00)
--- NOTE | 2019-04-29 20:01 | NUR ---
rn notes received patient sleeping comfortably in bed with no distress noted. on levoped, at 19mics with bp of 92/65. breathing even and unlabored. no physical manifestation of pain or discomfort. will continue to monitor
[2019-04-30] VITALS (73 sets, daily range): BP systolic 79–137; BP diastolic 52–88
[2019-04-30] MEDS: NOREPINEPHRINE 16 MG in IV D5W 500 ML IV PRN (03:09)
[2019-04-30] MEDS: ANCEF 1 GM/50 ML D5W IV SCH ×4 (03:31→11:51)
[2019-04-30] MEDS ORDERED: CEFAZOLIN 1 GM in IV D5W 50 ML IV SCH (04:00)
[2019-04-30 04:59] LABS: BASOPHILS % (AUTO) 0.1 % (0.0-2.0); EOSINOPHILS % (AUTO) 0.2 % (0.0-6.0); HEMATOCRIT 36 % (33-45); HEMOGLOBIN 12.2 g/dL (11.5-14.8); LYMPHOCYTES # (AUTO) 2.2 /CMM (0.8-4.8); LYMPHOCYTES % (AUTO) 24.6 % (20.0-44.0); MEAN CORPUSCULAR HGB CONC 34 g/dl (31.0-36.0); MEAN CORPUSCULAR VOLUME 112 fL (82-100); MONOCYTES # (AUTO) 0.7 /CMM (0.1-1.30); MONOCYTES % (AUTO) 7.3 % (2.0-12.0); NEUTROPHILS # (AUTO) 6.2 /CMM (1.8-8.9); NEUTROPHILS % (AUTO) 67.8 % (43.0-81.0); PLATELET COUNT (AUTO) 98 /CMM (150-450); RED BLOOD CELL COUNT(AUTO) 3.19 MIL/uL (4.0-5.2); WHITE BLOOD COUNT (AUTO) 9.2 K/uL (4.3-11.0)
[2019-04-30 05:03] LABS: CALCIUM, SERUM 7.9 mg/dL (8.5-10.1); CREATININE 4.2 mg/dL (0.6-1.3); POTASSIUM 3.8 mmol/L (3.5-5.1)
[2019-04-30 05:33] LABS: LYMPHOCYTES % (MANUAL) 16 % (16-48); MONOCYTES % (MANUAL) 4 % (0-11.0); NEUTROPHILS % (MANUAL) 80 (42-76)
--- NOTE | 2019-04-30 06:36 | NUR ---
rn notes no significant change of condition. levoped decreased to 16mics with latest bp of 115/75. No distress noted, breathing even and unlabored. room air tolerating well. kept clean and dry. will endorse to next shift for continuity of care
--- NOTE | 2019-04-30 07:30 | NUR ---
PATIENT RECEIVED , EASILY AROUSABLE TO VERBAL STIMULI. LETHARGIC BUT ANSWERS SIMPLE QUESTIONS APPROPRIATELY. FOLLOWS SIMPLE COMMANDS. ONGOING LEVOPHED DRIP AT 14 MCG/MIN FOR BP SUPPORT. WILL TITRATE ABLE.
--- NOTE | 2019-04-30 08:00 | NUR ---
DR. PAPO BLEVINS. LABS IN AM. CONTINUE CURRENT POC.
[2019-04-30] MEDS: FLUOXETINE HCL 20 MG CAPSULE PO SCH (08:10)
[2019-04-30] MEDS: FOLIC ACID 1 MG TABLET PO SCH (08:10)
[2019-04-30] MEDS: ASPIRIN EC 81 MG TABLET.DR PO SCH (08:10)
[2019-04-30] MEDS: PANTOPRAZOLE 40 MG TABLET.DR PO SCH (08:10)
[2019-04-30] MEDS: POLYETHYLENE GLYCOL 3350 17 GM POWD.PACK PO SCH (08:10)
[2019-04-30] MEDS: GABAPENTIN 100 MG CAPSULE PO SCH ×3 (08:10→16:39)
[2019-04-30] MEDS: OXYBUTYNIN CHLORIDE 5 MG TABLET PO SCH ×2 (08:11→16:39)
[2019-04-30] MEDS: MIDODRINE HCL (5MG) 5 MG TABLET PO SCH ×3 (08:11→16:40)
[2019-04-30] MEDS: DOCUSATE SODIUM 250 MG CAPSULE PO SCH ×2 (08:11→16:39)
--- NOTE | 2019-04-30 10:00 | NUR ---
PATIENT SEEN BY DR. CHIANGFOR HD IN AM.
--- NOTE | 2019-04-30 12:00 | NUR ---
PATIENT REFUSED LUNCH . AGREED TO TAKE DUE MEDS ONLY. ABLE TO DRINK JUICE POST ENCOURAGEMENT.
--- NOTE | 2019-04-30 14:00 | NUR ---
LEVOPHED GTT TITRATING DOWN PER PROTOCOL/PARAMETER AT 8 MCG/MIN AT THIS TIME.
--- NOTE | 2019-04-30 16:15 | NUR ---
PM CARE PROVIDED. LARGE AMOUNT OF SOFT BROWN STOOLS. COMPLETE LINEN CHANGED. NO NEW SKIN BREAKDOWN NOTED.
--- NOTE | 2019-04-30 17:55 | NUR ---
PATIENT LEVOPHED TITRATING DOWN. SLEEPING BUT EASILY AROUSABLE TO NAME. VERBALLY RESPONSIVE. NO VERBAL COMPLAINTS PRESENTED. REPOSITIONED FOR COMFORT. CONTINUE PLAN OF CARE.
--- NOTE | 2019-04-30 20:44 | NUR ---
RN NOTES RECEIVED PATIENT RESTING COMFORTABLY IN BED. EASILY AROUSABLE. IN NO APPARENT DISTRESS, ROOM AIR WELL TOLERATED. NO COMPLAINT OF PAIN OR DISCOMFORT. ON LEVOPED AT 6MICS, NO ADVERSE EFEECT NOTED. KEPT CLEAN AND DRY. WILL CONTINUE TO MONITOR.
[2019-05-01] VITALS (101 sets, daily range): BP systolic 35–146; BP diastolic 21–99
[2019-05-01 04:21] LABS: BASOPHILS % (AUTO) 0.2 % (0.0-2.0); EOSINOPHILS % (AUTO) 0.3 % (0.0-6.0); HEMATOCRIT 34 % (33-45); HEMOGLOBIN 11.3 g/dL (11.5-14.8); LYMPHOCYTES # (AUTO) 3.3 /CMM (0.8-4.8); LYMPHOCYTES % (AUTO) 43.1 % (20.0-44.0); MEAN CORPUSCULAR HGB CONC 34 g/dl (31.0-36.0); MEAN CORPUSCULAR VOLUME 112 fL (82-100); MONOCYTES # (AUTO) 0.5 /CMM (0.1-1.30); NEUTROPHILS # (AUTO) 3.8 /CMM (1.8-8.9); NEUTROPHILS % (AUTO) 50.4 % (43.0-81.0); PLATELET COUNT (AUTO) 100 /CMM (150-450); RED BLOOD CELL COUNT(AUTO) 2.99 MIL/uL (4.0-5.2); WHITE BLOOD COUNT (AUTO) 7.6 K/uL (4.3-11.0)
[2019-05-01 04:36] LABS: CALCIUM, SERUM 7.8 mg/dL (8.5-10.1); CREATININE 4.5 mg/dL (0.6-1.3); MAGNESIUM 1.5 mg/dL (1.8-2.4); PHOSPHORUS 5.2 mg/dL (2.5-4.9); POTASSIUM 3.7 mmol/L (3.5-5.1)
[2019-05-01] MEDS: NOREPINEPHRINE 16 MG in IV D5W 500 ML IV PRN ×2 (05:25→15:21)
--- NOTE | 2019-05-01 06:52 | NUR ---
RN NOTES NO SIGNIFICANT CHANGE NOTED, STILL ON LEVOPED INCREASED FROM 6MIC TO 8MIC, NO SIDE EFFECTS OBSERVED. VITAL SIGNS WNL. NO COMPLAINT OF PAIN OR DISCOMFORT. WILL ENDORSE TO NEXT SHIFT FOR CONTINUITY OF CARE.
--- NOTE | 2019-05-01 07:10 | NUR ---
RN INITIAL NOTES RECEIVED PT ASLEEP, EASILY AROUSABLE. ON ROOM AIR. NO RESPIRATORY DISTRESS NOTED. NO SOB NOTED. NO SIGNS OF PAIN NOTED. MICHAEL PICC IN PLACE. ON LEVO AT 8MCG/MIN. WILL CLOSELY MONITOR BP. RIGHT CHEST WALL HD CATH IN PLACE. FOR HD TODAY. BLE ELEVATED. PT COMFORTABLE. WILL MONITOR
[2019-05-01] MEDS: ASPIRIN EC 81 MG TABLET.DR PO SCH (08:37)
[2019-05-01] MEDS: GABAPENTIN 100 MG CAPSULE PO SCH ×3 (08:37→16:41)
[2019-05-01] MEDS: FLUOXETINE HCL 20 MG CAPSULE PO SCH (08:38)
[2019-05-01] MEDS: DOCUSATE SODIUM 250 MG CAPSULE PO SCH ×2 (08:38→16:41)
[2019-05-01] MEDS: MIDODRINE HCL (5MG) 5 MG TABLET PO SCH ×3 (08:39→16:41)
[2019-05-01] MEDS: POLYETHYLENE GLYCOL 3350 17 GM POWD.PACK PO SCH (08:39)
[2019-05-01] MEDS: OXYBUTYNIN CHLORIDE 5 MG TABLET PO SCH ×2 (08:39→16:41)
[2019-05-01] MEDS: FOLIC ACID 1 MG TABLET PO SCH (08:39)
[2019-05-01] MEDS: PANTOPRAZOLE 40 MG TABLET.DR PO SCH (08:41)
--- NOTE | 2019-05-01 10:00 | NUR ---
LEVOPHED GTT AT 18 MCG/MIN TO KEEP SBP>90.
--- NOTE | 2019-05-01 10:30 | NUR ---
RN NOTES SEEN AND EXAMINED BY DR DAY. AWARE OF PT'S CURRENT STATUS, LAB VALUES AND CXR RESULT. PT ON LEVO. FOR HD TODAY. WILL MONITOR
[2019-05-01] MEDS ORDERED: Magnesium 1 GM/2 ML VIAL IV ONE (17:00)
[2019-05-01] MEDS ORDERED: MGSO4/D5W 100 ML IV SCH (17:30)
[2019-05-01] MEDS: NEPRO VAN 237 ML CAN PO SCH (17:31)
--- NOTE | 2019-05-01 18:24 | NUR ---
RN CLOSING NOTES PT A/OX1-2. ON ROOM AIR. NO RESPIRATORY DISTRESS NOTED. NO SOB NOTED. DENIES ANY PAIN. PT REMAINS ON LEVO AT 22MCG/MIN, TITRATED ACCORDINGLY. HD DONE, REMOVED 700ML. TOLERATED WELL. KEPT CLEAN AND DRY. REPOSITIONED Q2. BLE ELEVATED. WILL ENDORSE FOR CONTINUITY OF CARE
--- NOTE | 2019-05-01 20:00 | NUR ---
AWAKE, DENIES DISCOMFORT. REMAINS ON LEVOPHED AT 20 MCG/MIN- WILL TITRATE ABLE.
--- NOTE | 2019-05-01 22:00 | NUR ---
LEVOPHED GTT AT 18 MCG/MIN TO KEEP SBP >90.
[2019-05-02] VITALS (94 sets, daily range): BP systolic 79–122; BP diastolic 32–81
--- NOTE | 2019-05-02 02:00 | NUR ---
LEVOPHED REMAINS AT 18 MCG/MIN. SBP >90'S.
--- NOTE | 2019-05-02 04:00 | NUR ---
COMPLETE BED BATH GIVEN. SKIN CARE PROVIDED. NO SIGNIFICANT CHANGE IN STATUS.
[2019-05-02 04:44] LABS: BASOPHILS % (AUTO) 0.2 % (0.0-2.0); EOSINOPHILS % (AUTO) 0.1 % (0.0-6.0); HEMATOCRIT 35 % (33-45); HEMOGLOBIN 11.8 g/dL (11.5-14.8); LYMPHOCYTES # (AUTO) 3.1 /CMM (0.8-4.8); LYMPHOCYTES % (AUTO) 37.2 % (20.0-44.0); MEAN CORPUSCULAR HGB CONC 34 g/dl (31.0-36.0); MEAN CORPUSCULAR VOLUME 113 fL (82-100); MONOCYTES # (AUTO) 0.6 /CMM (0.1-1.30); MONOCYTES % (AUTO) 6.8 % (2.0-12.0); NEUTROPHILS # (AUTO) 4.6 /CMM (1.8-8.9); NEUTROPHILS % (AUTO) 55.7 % (43.0-81.0); PLATELET COUNT (AUTO) 110 /CMM (150-450); RED BLOOD CELL COUNT(AUTO) 3.08 MIL/uL (4.0-5.2); WHITE BLOOD COUNT (AUTO) 8.3 K/uL (4.3-11.0)
[2019-05-02 04:51] LABS: CALCIUM, SERUM 8.6 mg/dL (8.5-10.1); CREATININE 3.2 mg/dL (0.6-1.3); POTASSIUM 3.3 mmol/L (3.5-5.1)
[2019-05-02] MEDS: NOREPINEPHRINE 16 MG in IV D5W 500 ML IV PRN ×2 (05:39→16:19)
--- NOTE | 2019-05-02 07:15 | NUR ---
RN INITIAL NOTES RECEIVED PT ASLEEP, EASILY AROUSABLE. ON ROOM AIR. NO RESPIRATORY DISTRESS NOTED. NO SOB NOTED. NO SIGNS OF PAIN NOTED. MICHAEL PICC IN PLACE. ON LEVO AT 20MCG/MIN. WILL CLOSELY MONITOR BP. RIGHT CHEST WALL HD CATH IN PLACE. BLE ELEVATED. PT COMFORTABLE. WILL MONITOR
[2019-05-02] MEDS: DOCUSATE SODIUM 250 MG CAPSULE PO SCH ×2 (08:36→16:19)
[2019-05-02] MEDS: MIDODRINE HCL (5MG) 5 MG TABLET PO SCH ×3 (08:36→16:19)
[2019-05-02] MEDS: NEPRO VAN 237 ML CAN PO SCH ×2 (08:36→18:11)
[2019-05-02] MEDS: GABAPENTIN 100 MG CAPSULE PO SCH ×3 (08:36→16:19)
[2019-05-02] MEDS: ASPIRIN EC 81 MG TABLET.DR PO SCH (08:36)
[2019-05-02] MEDS: FLUOXETINE HCL 20 MG CAPSULE PO SCH (08:36)
[2019-05-02] MEDS: OXYBUTYNIN CHLORIDE 5 MG TABLET PO SCH ×2 (08:36→16:19)
[2019-05-02] MEDS: FOLIC ACID 1 MG TABLET PO SCH (08:36)
[2019-05-02] MEDS: POLYETHYLENE GLYCOL 3350 17 GM POWD.PACK PO SCH (08:44)
[2019-05-02] MEDS: PANTOPRAZOLE 40 MG TABLET.DR PO SCH (08:44)
[2019-05-02] MEDS ORDERED: POTASSIUM CHLORIDE 20 MEQ POWDER PACKET GT SCH (09:00)
[2019-05-02] MEDS ORDERED: POTASSIUM CHLORIDE 20 MEQ POWDER PACKET GT ONE (09:00)
--- NOTE | 2019-05-02 10:00 | NUR ---
RN NOTES SEEN AND EXAMINED BY ERASTO POLK DNP. AWARE OF PT'S CONDITION. NOTIFIED OF LAB RESULT. ORDERED POTASSIUM REPLACEMENT. PT NOT ON DVT PROPHYLAXIS, ORDERED BLE VENOUS DOPPLER STUDY. PT REMAINS ON LEVO, TITRATED ACCORDINGLY. ALSO AWARE OF POOR PO INTAKE, ORDERED DIETARY CONSULT. WILL CLOSELY MONITOR
--- NOTE | 2019-05-02 11:50 | NUR ---
RN NOTES CALLED ERASTO POLK DNP REGARDING BLE VENOUS DOPPLER RESULT, POSITIVE. WILL PLACEPT ON ELIQUIS 10MG BID. WILL MONITOR FOR SIGNS OF BLEEDING.
[2019-05-02] MEDS: APIXABAN 5 MG TABLET PO SCH (16:20)
--- NOTE | 2019-05-02 18:39 | NUR ---
RN CLOSING NOTES PT A/OX1-2. ON ROOM AIR. NO RESPIRATORY DISTRESS NOTED. NO SOB NOTED. DENIES ANY PAIN. PT REMAINS ON LEVO AT 16MCG/MIN, TITRATED ACCORDINGLY.TOLERATED WELL. KEPT CLEAN AND DRY. REPOSITIONED Q2. BLE ELEVATED. WILL ENDORSE FOR CONTINUITY OF CARE
--- NOTE | 2019-05-02 19:00 | NUR ---
RECEIVED PATIENT DROWSY BUT EASILY AWAKENS,COHERENT AND APPROPRIATE ,SLEEPING MOST OF THE TIME,FEELING TIRED AND WEAK BUT ABLE TO MOVE ALL EXTREMITIES ALTHOUGH WEAK.NOT IN ANY DISTRESS.STILL ON LEVOPHED DRIP FOR BP SUPPORT AND ON MIDODRINE PO.CLOSELY MONITOR BP, NOTED MULTIPLE BRUISES/ECCHYMOSIS ALL OVER ARMS AND CHEST.HD CATHETER ON RIGHT UPPER CHEST,DRESSING DONN=Y AND INTACT.MID LINE MICHAEL.COMFORT CARE DONE,NEEDS ATTENDED.
--- NOTE | 2019-05-02 22:00 | NUR ---
REMAINS STABLE.BP IN THE 100'S SYSTOLIC WITH LEVOPHED DRIP @ 18 MCG/MIN
[2019-05-03] VITALS (53 sets, daily range): BP systolic 71–129; BP diastolic 44–94
--- NOTE | 2019-05-03 | NUR ---
STATUS UNCHANGED,STABLE,MORE AWAKE AND ALERT .
--- NOTE | 2019-05-03 04:00 | NUR ---
STATUS UNCHANGED ,REMAINS STABLE,AWAKE,ALERT.STILL ON LEVOPHED DRIP.
[2019-05-03 04:46] LABS: CALCIUM, SERUM 8.3 mg/dL (8.5-10.1); CREATININE 3.6 mg/dL (0.6-1.3)
[2019-05-03] MEDS: NOREPINEPHRINE 16 MG in IV D5W 500 ML IV PRN ×2 (05:28→21:30)
--- NOTE | 2019-05-03 07:00 | NUR ---
REMAINS STABLE,STILL ON LEVOPHED DRIP,ATTEMPTED TO WEAN DOWN LEVOPHED DRIP BUT BP DROPS IN THE 80'S SYSTOLIC EASILY,NOW BACK UP TO 18 MCG/MIN.FOR HEMODIALYSIS TODAY.ENDORSED TO AM NURSE SADE LEES.
--- NOTE | 2019-05-03 07:45 | NUR ---
RN OPENING NOTES RECEIVED PATIENT RESTING IN BED COMFORTABLY, DENIES ANY PAIN OR DISCOMFORT AT THIS TIME. SHE IS ON RA, TOLERATING WELL, NO S/SX OF RESP DISTRESS OR SOB. SHE IS RECEIVING AT 1M MCG, TOLERATING WELL. SAFETY MEASURES HAVE BEEN IMPLEMENTED, CALL LIGHT IS WITHIN REACH, BED IS IN LOWEST AND LOCKED POSITION, SIDE RAILS UP X2, WILL CONTINUE TO MONITOR FOR ANY CHANGES,
[2019-05-03] MEDS: PANTOPRAZOLE 40 MG TABLET.DR PO SCH (08:18)
[2019-05-03] MEDS: NEPRO VAN 237 ML CAN PO SCH ×2 (08:19→17:45)
[2019-05-03] MEDS: APIXABAN 5 MG TABLET PO SCH ×2 (09:28→17:41)
[2019-05-03] MEDS: MIDODRINE HCL (5MG) 5 MG TABLET PO SCH ×3 (09:30→17:44)
[2019-05-03] MEDS: POLYETHYLENE GLYCOL 3350 17 GM POWD.PACK PO SCH (09:30)
[2019-05-03] MEDS: GABAPENTIN 100 MG CAPSULE PO SCH ×3 (09:31→17:44)
[2019-05-03] MEDS: FLUOXETINE HCL 20 MG CAPSULE PO SCH (09:31)
[2019-05-03] MEDS: OXYBUTYNIN CHLORIDE 5 MG TABLET PO SCH ×2 (09:31→17:44)
[2019-05-03] MEDS: ASPIRIN EC 81 MG TABLET.DR PO SCH (09:31)
[2019-05-03] MEDS: DOCUSATE SODIUM 250 MG CAPSULE PO SCH ×2 (09:32→17:00)
[2019-05-03] MEDS: FOLIC ACID 1 MG TABLET PO SCH (09:32)
--- NOTE | 2019-05-03 19:20 | NUR ---
RN OPENING NOTES RECEIVED PATIENT IN BED, AWAKE, A/OX2. PATIENT APPEARS DROWSY. DENIES ANY PAIN. ON TELE MONITOR SR WITH HR 64. ON ROOM AIR, TOLERATING WELL, NOT IN ANY DISTRESS, NO SOB NOTED, SATURATING 99% AT THE MOMENT. IV SITE RIGHT UPPER ARM PICC, FLUSHING AND PATENT, SITE C/D/I; LEVOPHED DRIP RUNNING AT 14MCG AT THE MOMENT. WILL CLOSELY MONITOR BP. NOTED MULTIPLE BRUISES/ECCHYMOSIS ALL OVER ARMS AND CHEST/NECK. HD CATHETER ON RIGHT UPPER CHEST INTACT. SAFETY MEASURES IN PLACE; CL WITHIN REACH, SIDE RAILS UP X2, HOB ELEVATED. WILL CONT TO MONITOR PT CLOSELY.
--- NOTE | 2019-05-03 19:37 | NUR ---
RN CLOSING NOTES PATIENT IS RESTING IN BED COMFORTABLY, DENIES ANY DISCOMFORT AT THIS TIME. LEVO IS RUNNING AT 14 MCG, TOLERATING WELL, BP IS WITHIN EXPECTED RANGE. SAFETY MEASURES HAVE BEEN IMPLEMENTED, CALL LIGHT IS WITHIN REACH, BED IS IN LOWEST AND LOCKED POSITION, SIDE RAILS UP X2, PT HAS BEEN ENDORSED TO NIGHTSHIFT RN FOR CONTINUITY OF CARE.
[2019-05-04] VITALS (67 sets, daily range): BP systolic 51–118; BP diastolic 29–66
--- NOTE | 2019-05-04 06:57 | NUR ---
RN CLOSING NOTES PATIENT SLEEPING IN BED, BUT EASY TO AROUSE. DENIES ANY PAIN. NO ACUTE CHANGES THROUGHOUT SHIFT. STILL ON LEVOPHED DRIP RUNNING AT 12MCG AT THE MOMENT. REPOSITIONED Q2H. WOUND TX DONE ORDERED. ALL MD ORDERS ATTENDED, ALL NEEDS ANTICIPATED AND MET. SAFETY MEASURES IN PLACE; CL WITHIN REACH, SIDE RAILS UP X2, HOB ELEVATED. WILL CONT TO MONITOR PT CLOSELY. WILL ENDORSE TO AM RN FOR LANDON.
--- NOTE | 2019-05-04 07:46 | NUR ---
PRODUCTION WELDING SUPERVISOR NOTES RECEIVED PT IN BED, ALERT AWAKE, ON TELE MONITOR SR HR 67, RT UPPER ARM PICC LINE IN PLACE AND INTACT, ON LEVOPHED DRIP ORDERED , NO SOB NOTED , ON RA , O2 SAT 100% AT THIS TIME, BED IN LOWEST AND LOCKED POSITION, CALL LIGHT WITHIN REACH WITH GENERAL EDEMA , KEEP UPPER AND LOWER EXTREMITIES ON PILLOW TOLERATED ,HAVING BREAKFAST FED BY ONLINE JOURNALIST , WILL MONITOR
[2019-05-04] MEDS: NEPRO VAN 237 ML CAN PO SCH ×3 (08:00→16:12)
[2019-05-04] MEDS: FLUOXETINE HCL 20 MG CAPSULE PO SCH (08:20)
[2019-05-04] MEDS: DOCUSATE SODIUM 250 MG CAPSULE PO SCH ×2 (08:20→16:12)
[2019-05-04] MEDS: ASPIRIN EC 81 MG TABLET.DR PO SCH (08:20)
[2019-05-04] MEDS: APIXABAN 5 MG TABLET PO SCH ×2 (08:20→16:14)
[2019-05-04] MEDS: OXYBUTYNIN CHLORIDE 5 MG TABLET PO SCH ×2 (08:20→16:10)
[2019-05-04] MEDS: POLYETHYLENE GLYCOL 3350 17 GM POWD.PACK PO SCH (08:20)
[2019-05-04] MEDS: PANTOPRAZOLE 40 MG TABLET.DR PO SCH (08:21)
[2019-05-04] MEDS: GABAPENTIN 100 MG CAPSULE PO SCH ×3 (08:21→16:10)
[2019-05-04] MEDS: MIDODRINE HCL (5MG) 5 MG TABLET PO SCH ×3 (08:21→16:10)
[2019-05-04] MEDS: FOLIC ACID 1 MG TABLET PO SCH (08:21)
--- NOTE | 2019-05-04 10:30 | NUR ---
director of curriculum and instruction note turn reposition, keep clean dry, on Levophed drip as ordered
--- NOTE | 2019-05-04 12:32 | NUR ---
floriculture teacher note having lunch fed by [employer] supervisor, ate 25% ,cont on Levophed drip as ordered bp 90/44 at this time
--- NOTE | 2019-05-04 14:10 | NUR ---
agricultural equipment salesperson note mary rn customer service dispatcher at bedside aware that bp 77/42 on 4 mcg\min of Levophed, with order to cont to monitor
[2019-05-04] MEDS: NOREPINEPHRINE 16 MG in IV D5W 500 ML IV PRN (16:16)
--- NOTE | 2019-05-04 17:56 | NUR ---
LOAN WORKOUT OFFICER NOTE CONT ON LEVOPHED DRIP ORDERED, FED BY BRANDEE KEEP CLEAN DRY , WILL MONITOR Addendum: 05/04/19 at 1839 by NICA MIMS RN NOTED SAT 78 % ,PLACED ON 2L NC AND NOW 100% OF O2 ,WILL MONITOR
--- NOTE | 2019-05-04 19:15 | NUR ---
PATHOLOGIST: RECEIVED PT LETHARGIC, OPENS EYES AND FOLLOW SIMPLE COMMANDS. ABLE TO VERBALLY RESPONDS AT TIMES. ON 2L O2 VIA NC WT NO ACUTE DISTRESS. ON LEVOPHED AT 8MCG/MIN TO KEEP MAP ABOVE 55. NO S/S OF MICHAEL PICC LINE COMPLICATIONS. NO ACUTE DISTRESS, NO EVIDENCE OF DISCOMFORT. HOB AT 35 DEGREES. BED IN LOWEST POSITION AND LOCKED, BED ALARM ON, SIDE RAILS UP X2. CALL LIGHT KEPT WITHIN REACH. WILL CONTINUE TO MONITOR.
[2019-05-05] VITALS (87 sets, daily range): BP systolic 54–99; BP diastolic 22–66
[2019-05-05 05:16] LABS: BASOPHILS % (AUTO) 0.1 % (0.0-2.0); EOSINOPHILS % (AUTO) 0.1 % (0.0-6.0); HEMATOCRIT 34 % (33-45); HEMOGLOBIN 11.4 g/dL (11.5-14.8); LYMPHOCYTES # (AUTO) 3.4 /CMM (0.8-4.8); LYMPHOCYTES % (AUTO) 32.7 % (20.0-44.0); MEAN CORPUSCULAR HGB CONC 34 g/dl (31.0-36.0); MEAN CORPUSCULAR VOLUME 112 fL (82-100); MONOCYTES # (AUTO) 0.6 /CMM (0.1-1.30); MONOCYTES % (AUTO) 6.1 % (2.0-12.0); NEUTROPHILS # (AUTO) 6.4 /CMM (1.8-8.9); PLATELET COUNT (AUTO) 116 /CMM (150-450); RED BLOOD CELL COUNT(AUTO) 3.02 MIL/uL (4.0-5.2); WHITE BLOOD COUNT (AUTO) 10.5 K/uL (4.3-11.0)
[2019-05-05 05:17] LABS: CREATININE 3.5 mg/dL (0.6-1.3); POTASSIUM 3.2 mmol/L (3.5-5.1)
[2019-05-05 05:50] LABS: LYMPHOCYTES % (MANUAL) 22 % (16-48); MONOCYTES % (MANUAL) 4 % (0-11.0); NEUTROPHILS % (MANUAL) 74 (42-76)
[2019-05-05] MEDS ORDERED: ALBUMIN 25% 25 GM in PREMIX 1 EA IV PRN (06:00)
--- NOTE | 2019-05-05 06:10 | NUR ---
PSYCHOLOGIST CHIEF: HEMODIALYSIS STARTED. ON LEVOPHED AT 18MCG/MIN FOR BP SUPPORT AND TO KEEP MAP ABOVE 55. PT REMAINED LETHARGIC. NO ACUTE DISTRESS ON 2L 02 VIA NC. SAFETY PRECAUTION NOTED AT ALL TIMES.
--- NOTE | 2019-05-05 07:30 | NUR ---
ICU/RN-RECEIVED PT. FROM NIGHTSHIFT RN ON BED W/ ONGOING HD. ON LEVOPHED DRIP AT 20MCG/MIN. BP-84/38. WILL TITRATE TO KEEP MAP >55 ORDERED BY MD. NO S/S OF PAIN OR DISTRESS BREATHING COMES EASY W/ 2L NC, SATS.-97%
[2019-05-05] MEDS: PANTOPRAZOLE 40 MG TABLET.DR PO SCH (08:08)
[2019-05-05] MEDS: NEPRO VAN 237 ML CAN PO SCH ×2 (08:09→17:23)
--- NOTE | 2019-05-05 08:45 | NUR ---
ICU/RN-HD DONE. NET LOSS -200. ON LEVOPHED DRIP AT 22MCG/MIN. WILL CONTINUE TO TITRATE TOLERATED.
[2019-05-05] MEDS: DOCUSATE SODIUM 250 MG CAPSULE PO SCH ×2 (08:51→16:27)
[2019-05-05] MEDS: OXYBUTYNIN CHLORIDE 5 MG TABLET PO SCH ×2 (08:51→16:28)
[2019-05-05] MEDS: FOLIC ACID 1 MG TABLET PO SCH (08:51)
[2019-05-05] MEDS: POLYETHYLENE GLYCOL 3350 17 GM POWD.PACK PO SCH (08:51)
[2019-05-05] MEDS: ASPIRIN EC 81 MG TABLET.DR PO SCH (08:51)
[2019-05-05] MEDS: GABAPENTIN 100 MG CAPSULE PO SCH ×3 (08:52→16:28)
[2019-05-05] MEDS: FLUOXETINE HCL 20 MG CAPSULE PO SCH (08:52)
[2019-05-05] MEDS: MIDODRINE HCL (5MG) 5 MG TABLET PO SCH ×3 (08:52→16:28)
--- NOTE | 2019-05-05 09:00 | NUR ---
ICU/RN- PO MEDS GIVEN W/ APPLESAUCE, YUNIEL. WELL W/ HOB AT 60 DEGREES. NO S/S OF ASPIRATION.
[2019-05-05] MEDS: APIXABAN 5 MG TABLET PO SCH ×2 (09:04→17:24)
--- NOTE | 2019-05-05 09:10 | NUR ---
BREAKFAST SERVED, ATE ONLY 20% OF FOOD SERVED. PT. VERBALIZED LOSS OF APPETITE. WILL ENCOURAGE INCREASE IN ORAL INTAKE.
[2019-05-05] MEDS: NOREPINEPHRINE 16 MG in IV D5W 500 ML IV PRN ×2 (10:37→21:32)
--- NOTE | 2019-05-05 11:00 | NUR ---
ICU/RN- SEEN BY AKI POLK.
--- NOTE | 2019-05-05 12:00 | NUR ---
ICU/RN- LUNCH SERVED. PT. ATE ABOUT 40% OF TRAY. PT. VERBALIZED NO APPETITE TO EAT. WILL WAIT FOR LITHOGRAPHIC PRINTING MACHINIST AND DISCUSS OPTIONS TO INCREASE APPETITE.
--- NOTE | 2019-05-05 14:30 | NUR ---
ICU/RN-SEEN BY SOFTWARE QA SYSTEM SPECIALIST, UPDATE GIVEN TO SAME REGARDING PT. NUTRITION/INTAKE.
--- NOTE | 2019-05-05 15:45 | NUR ---
ICU/RN- ASLEEP ON HIGH BACKREST POSITION. NO S/S OF PAIN OR DISTRESS. REPORT GIVEN TO NABEEL DE LEON.
--- NOTE | 2019-05-05 18:21 | NUR ---
RN CLOSING NOTES NO SIGNIFICANT CHANGE NOTED. PT REMAINS ON LEVO, TITRATED ACCORDINGLY. KEPT CLEAN AND DRY. REPOSITIONED Q2. BLE ELEVATED. WILL ENDORSE FOR CONTINUITY OF CARE
--- NOTE | 2019-05-05 19:00 | NUR ---
RN OPENING NOTES RECEIVED PATIENT IN BED, SLEEPING, BUT EASY TO AROUSE, LETHARGIC, A/OX1. DENIES ANY PAIN OR SOB. ON TELE MONITOR SR WITH HR 81. ON OXYGEN 2L VIA NC, TOLERATING WELL, NOT IN ANY DISTRESS, SATURATING 100% AT THE MOMENT. IV SITE RIGHT UPPER ARM PICC, FLUSHING AND PATENT, DRESSING SOILED, WILL CHANGE DRESSING; LEVOPHED DRIP RUNNING AT 22MCG AT THE MOMENT. WILL CLOSELY MONITOR BP. NOTED MULTIPLE BRUISES/ECCHYMOSIS ALL OVER ARMS AND CHEST/NECK. HD CATHETER ON RIGHT UPPER CHEST WITH MINIMAL BLOOD ON THE SITE NOTED, WILL CHANGE DRESSING. SAFETY MEASURES IN PLACE; CL WITHIN REACH, SIDE RAILS UP X2, HOB ELEVATED. WILL CONT TO MONITOR PT CLOSELY.
--- NOTE | 2019-05-05 19:01 | NUR ---
RN NOTES PER AM RN, RIGHT FOREARM WOUND NOTED BLEEDING SINCE SHE RECEIVED THE PATIENT AT 1600. WILL CHANGE DRESSING NEEDED.
[2019-05-06] VITALS (110 sets, daily range): BP systolic 41–143; BP diastolic 27–80
--- NOTE | 2019-05-06 07:15 | NUR ---
RN CLOSING NOTES PATIENT IN BED, SLEEPING, BUT EASY TO AROUSE, LETHARGIC, A/OX1. ON OXYGEN 1L VIA NC, TOLERATING WELL, NOT IN ANY DISTRESS, SATURATING 99% AT THE MOMENT. IV SITE RIGHT UPPER ARM PICC, FLUSHING AND PATENT, DRESSING SOILED, WILL CHANGE DRESSING; LEVOPHED DRIP RUNNING AT 28MCG AT THE MOMENT. NOTED MULTIPLE BRUISES/ECCHYMOSIS ALL OVER ARMS AND CHEST/NECK. ALL MD ORDERS ATTENDED. KEPT PT CLEAN, DRY, AND COMFORTABLE. LAB PERSONNEL CALLED AND WILL RE-DRAW PT/INR/APTT LABS. SAFETY MEASURES IN PLACE; CL WITHIN REACH, SIDE RAILS UP X2, HOB ELEVATED. ENDORSED TO AM RN FOR LANDON.
--- NOTE | 2019-05-06 07:30 | NUR ---
FIRE BOSS OPENING NOTES RECEIVED REPORT FROM PM NURSE. PATIENT IN BED.LETHARGIC.ONLY RESPOND TO PAINFUL STIMULI. PUPILS ARE REACTIVE TO LIGHT.PUPIL SIZE 5.ON TELE MONITOR SR WITH HR 92. ON OXYGEN 1L VIA NC, TOLERATING WELL.NO SOB NO DISTRESS NOTED.SATURATING 100% AT THE MOMENT. DEEP SHALLOW BREATHING NOTED.IV SITE RIGHT UPPER ARM PICC, FLUSHING AND PATENT.LEVOPHED DRIP RUNNING AT 28MCG AT THE MOMENT. NOTED MULTIPLE BRUISES/ECCHYMOSIS ALL OVER ARMS AND CHEST/NECK. HD CATHETER ON RIGHT UPPER CHEST WITH MINIMAL BLOOD ON THE SITE NOTED. SAFETY MEASURES IN PLACE.BED IS LOW AND IN LOCKED POSITION.CALL LIGHT IN REACH.BED ALARM ON. SIDE RAILS UP X3, HOB ELEVATED. WILL CONTINUE TO MONITOR.
[2019-05-06] MEDS: NEPRO VAN 237 ML CAN PO SCH ×2 (08:00→17:00)
--- NOTE | 2019-05-06 08:00 | NUR ---
RN CLINICIAN NOTE NOTIFIED ABOUT PATIENT CONDITION WITH LABS.ELEVATED PT INR PENDING RESULT.REDRAW AWAITING.MADE AWARE PATIENT IS ALTERED.ONLY RESPONDING TO PAINFUL STIMULI.PUPILS REACTING TO LIGHT,PUPIL SIZE 5.GOT NEW ORDERS.OK TO CHANGE IV PROTONIX.
[2019-05-06] MEDS: NOREPINEPHRINE 16 MG in IV D5W 500 ML IV PRN ×4 (08:07→22:54)
[2019-05-06] MEDS: OXYBUTYNIN CHLORIDE 5 MG TABLET PO SCH ×2 (08:13→17:00)
[2019-05-06] MEDS: ASPIRIN EC 81 MG TABLET.DR PO SCH (08:13)
[2019-05-06] MEDS: DOCUSATE SODIUM 250 MG CAPSULE PO SCH ×2 (08:13→17:00)
[2019-05-06] MEDS: APIXABAN 5 MG TABLET PO SCH ×2 (08:13→17:00)
[2019-05-06] MEDS: FOLIC ACID 1 MG TABLET PO SCH (08:14)
[2019-05-06] MEDS: GABAPENTIN 100 MG CAPSULE PO SCH ×3 (08:14→17:00)
[2019-05-06] MEDS: FLUOXETINE HCL 20 MG CAPSULE PO SCH (08:14)
[2019-05-06] MEDS: POLYETHYLENE GLYCOL 3350 17 GM POWD.PACK PO SCH (08:14)
[2019-05-06] MEDS: MIDODRINE HCL (5MG) 5 MG TABLET PO SCH ×3 (08:14→17:00)
--- NOTE | 2019-05-06 08:22 | NUR ---
LATH TIER NOTE PATIENT,S PO MEDICATION AND AM BREAKFAST NOT ADMINISTERED.PATIENT WAS NOT ABLE TO FOLLOW INSTRUCTIONS.PATIENT LETHARGIC.RESPONDS TO PAINFUL STIMULI.
[2019-05-06] MEDS: PANTOPRAZOLE 40 MG VIAL IV SCH ×2 (08:31→17:50)
[2019-05-06 08:37] LABS: ABG OXYGEN SATURATION 96.5 % (92.0-98.5); ABG PCO2 28.9 mmHg (35.0-45.0); ABG PH 7.458 (7.350-7.450); ABG PO2 115.4 mmHg (75.0-100.0); AaDO2 21.3 mmHg; COHb 0.1 % (0.5-1.5); MetHb 0.3 % (0.0-1.5); O2Hb 96.1 % (94.0-97.0); SITE, ABG Right Radial; VENT MODE, BG N/C 1LPM
[2019-05-06 08:44] LABS: BASOPHILS % (AUTO) 0.1 % (0.0-2.0); EOSINOPHILS % (AUTO) 0.2 % (0.0-6.0); HEMATOCRIT 30 % (33-45); HEMOGLOBIN 9.8 g/dL (11.5-14.8); LYMPHOCYTES # (AUTO) 2.2 /CMM (0.8-4.8); LYMPHOCYTES % (AUTO) 26.7 % (20.0-44.0); MEAN CORPUSCULAR HGB CONC 33 g/dl (31.0-36.0); MEAN CORPUSCULAR VOLUME 116 fL (82-100); MONOCYTES # (AUTO) 0.2 /CMM (0.1-1.30); MONOCYTES % (AUTO) 2.9 % (2.0-12.0); NEUTROPHILS # (AUTO) 5.8 /CMM (1.8-8.9); NEUTROPHILS % (AUTO) 70.1 % (43.0-81.0); PLATELET COUNT (AUTO) 94 /CMM (150-450); RED BLOOD CELL COUNT(AUTO) 2.61 MIL/uL (4.0-5.2); WHITE BLOOD COUNT (AUTO) 8.3 K/uL (4.3-11.0)
[2019-05-06] MEDS ORDERED: IV NS 0.9% 500 ML IV ONE (09:00)
--- NOTE | 2019-05-06 09:00 | NUR ---
TITLE OFFICER NOTE LEFT MESSAGE TO COMMUNITY ENGAGEMENT LEADER ERASTO ABOUT ABNORMAL LABS LOW NA ,K ,PHOS.AWAITING ORDERS.
--- NOTE | 2019-05-06 09:10 | NUR ---
SHELL REPRINT OPERATOR NOTE SEEN BY .UPDATED PATIENT CONDITION WITH LABS.RELAYED ABG RESULT.NNO.GOT NEW ORDER FOR DECREASED BP.TO GIVE 1 BAG 500ML BOLUS NS,D5NS@50ML /HR.NEOSYNEPHRINE IF BP <70 WITH LEVO.WILL CONTINUE TO MONITOR..
[2019-05-06 09:24] LABS: BILIRUBIN,TOTAL 1.7 mg/dL (0.2-1.0); CALCIUM, SERUM 8.3 mg/dL (8.5-10.1); CREATININE 2.9 mg/dL (0.6-1.3); MAGNESIUM 1.6 mg/dL (1.8-2.4); POTASSIUM 2.9 mmol/L (3.5-5.1); TOTAL PROTEIN, SERUM 4.4 g/dL (6.4-8.2)
--- NOTE | 2019-05-06 09:29 | NUR ---
SOLUTIONS MARKET CONSULTANT NOTER CRITICAL PT INR AND APTT RESULT RELAYED TO PITA MAURER.GOT ORDER TO HOLD BLOOD THINNERS.HE WILL SEE PATIENT .
[2019-05-06] MEDS: HYDROCORTISONE SOD SUCCINATE 100 MG/2 ML VIAL IV SCH ×3 (10:08→17:50)
[2019-05-06] MEDS: IV D5/ 0.9% NACL 1,000 ML IV PRN (10:08)
--- NOTE | 2019-05-06 11:55 | NUR ---
TOMATO PULPER OPERATOR NOTE MADE AWARE ABOUT ABNORMAL LAB AND BMP RESULT.GOT NEW ORDER TO GIVE K PHOS IV 10 M MOLX1.WILL CONTINUE TO MONITOR.
[2019-05-06] MEDS ORDERED: POTASSIUM PHOSPHATE MM 5 MMOL in IV D5W 100 ML IV SCH (12:00)
[2019-05-06] MEDS: PHENYLEPHRINE 80 MG in IV NS 0.9% 250 ML IV PRN ×3 (12:02→20:12)
--- NOTE | 2019-05-06 16:30 | NUR ---
SCHOOL COMMISSIONER: got pt. after Jey, RN report, pt.is lethargic, Pupils 4-5mm/reactive, trace arms,legs activity, pt is unable to swallow by report, ST, 100-110 now, on Levophed gtt 40mcg/m now, Christian gtt 90 mcg/min now, SBP around 90 now, order: keep SBP over 70, O2sat. over 94%/, no SOB, multiple bruises over body, bloody oozing R.FA open tear, R.chest HD cath dressing saturated with old blood, HD done yesterday
--- NOTE | 2019-05-06 16:45 | NUR ---
MANDREL MAKER NOTE REPORT GIVEN TO CARTER LEES FOR LANDON.PATIENT LETHARGIC.RESPONDS TO PAINFULL STIMULI AND TOUCH.OPEN EYES.VITAL SIGNS STABLE WITH LEVO 40MCG AND ON NEOSYNEPHRINE.IVF D5NS @50ML/HR VIA MICHAEL PICCLINE.WOUND CONSULT PENDING.SACRAL WOUND OPEN AND R ARM WOUND NEED REEVALUATION.REQUESTED CARTER TO F/U WITH TRADE UNION SECRETARY ERASTO WHILE HE SSE THE PATIENT.SAFETY AND ASPIRATION MEASURES IN PLCE.BED IS LOW AND IN LOCKED POSITION.CALL LIGHT IN REACH.SRX3.
--- NOTE | 2019-05-06 17:10 | NUR ---
MANAGER PLAN: notified JeAGILITY INSTRUCTOR re all above, PITA Wooten evaluated DNR/DNI status, saw pt in room, updated with pt.neurostatus, VS, pressors, multiple bruises/bleeding open tear/risk of bleeding, said: keep pt.NPO, do not place NGT/risk of bleeding, see new orders. Called to pharmacy to get Levo, Christian bags for night
[2019-05-06] MEDS ORDERED: diphenhydrAMINE HCL 50 MG/ML VIAL IV PRN (17:30)
[2019-05-06] MEDS ORDERED: ACETAMINOPHEN 325 MG TABLET PO PRN (17:30)
--- NOTE | 2019-05-06 17:30 | NUR ---
PREVENTIVE MAINTENANCE COORDINATOR: spoke with PITA Wooten, updated with pt.current status, see new orders. Called TRICIA Goodrich for consult
[2019-05-06] MEDS ORDERED: FEE PK DOSING 1 MIN EA MC ONE (17:46)
[2019-05-06] MEDS ORDERED: VANCOMYCIN POST DIALYSIS 500MG IV PRN ×2 (18:00)
[2019-05-06] MEDS ORDERED: VANCOMYCIN 1 GM in IV D5W 250 ML IV ONE (18:00)
[2019-05-06 19:12] LABS: PLATELET COUNT (AUTO) 96 /CMM (150-450)
[2019-05-06 19:30] LABS: D-DIMER 0.21 mg/L(FEU (0.17-0.50)
[2019-05-06] MEDS ORDERED: ACETAMINOPHEN 650 MG/SUPP.RECT RC PRN (19:30)
[2019-05-06 19:51] LABS: BILIRUBIN,URINE NEGATIVE (NEGATIVE); BLOOD, URINE LARGE Ery/uL (NEGATIVE); COLOR,URINE DARK YELLO (YELLOW); KETONES,URINE TRACE (NEGATIVE); LEUKOCYTE ESTERASE ,URINE LARGE (NEGATIVE); NITRITE, URINE NEGATIVE (NEGATIVE); PH,URINE 5.5 (5.0-8.0); PROTEIN,URINE 100 mg/dl (NEGATIVE); UGLUCOSE >=1000 mg/dL (NEGATIVE); UROBILINOGEN,URINE 0.2 EU/dL (0.2)
[2019-05-06] MEDS ORDERED: CEFEPIME 1 GM in IV NS 0.9% 50 ML IV SCH (20:00)
[2019-05-06 20:07] LABS: APPEARANCE,URINE TURBID (CLEAR); WBC,URINE TOO NUMEROUS TO COUN /HPF (0-3)
[2019-05-06 20:08] LABS: BACTERIA,URINE Moderate /HPF (None Seen); SQUAMOUS EPITHELIAL CELL,UR Moderate /HPF (None Seen); YEAST,URINE Moderate /HPF (None Seen)
[2019-05-06] MEDS: MEROPENEM 500 MG in IV NS 0.9% 50 ML IV SCH (20:38)
[2019-05-06] MEDS: MICAFUNGIN SODIUM 100 MG in IV NS 0.9% 100 ML IV SCH (21:19)
[2019-05-07] VITALS (97 sets, daily range): BP systolic 65–144; BP diastolic 45–103
[2019-05-07] MEDS: IV D5/ 0.9% NACL 1,000 ML IV PRN ×2 (05:09→18:01)
--- NOTE | 2019-05-07 07:15 | NUR ---
PRIVATE PILOT NOTES RECEIVED PATIENT OPENS EYES , ABLE TO FOLLOW SIMPLE COMMANDS , LETHARGIC , NO RESPIRATORY DISTRESS NOTED ON 1LPM NC SPO2 OF 100% , SR 68 ON BEDSIDE MONITOR , MICHAEL PICC LINE WITH D5NS @ 50ML/HR AND LEVOPHED @ 14MCG/MIN INFUSING WELL TO KEEP MAP ABOVE 55MMHG , RIGHT CHEST WALL HD CATH DRESSING SOILED UNABLE TO CHANGE DRESSING IT MAY CAUSE A LARGE SKIN TEAR , ALL NEEDS ATTENDED , BED ON LOW AND LOCKED POSITION , SIDE RAILS X2, CALL LIGHT WITHIN REACH , HOB @ 45 , WILL CONTINUE TO MONITOR
--- NOTE | 2019-05-07 07:26 | NUR ---
n notes patient in bed, resting comfortably with no distress noted. no physical manifestation of pain or discomfort. lethargic, non verbal. on levoped started at 40 mcg, now 10mcg with flactuating bp. also on neos but held at 2130 for increased bp. kept clean and dry.
[2019-05-07] MEDS: NEPRO VAN 237 ML CAN PO SCH ×2 (07:44→16:38)
[2019-05-07] MEDS: ASPIRIN EC 81 MG TABLET.DR PO SCH (08:00)
[2019-05-07] MEDS: POLYETHYLENE GLYCOL 3350 17 GM POWD.PACK PO SCH (08:00)
[2019-05-07] MEDS: APIXABAN 5 MG TABLET PO SCH ×2 (08:00→16:37)
[2019-05-07] MEDS: DOCUSATE SODIUM 250 MG CAPSULE PO SCH ×2 (08:00→16:37)
[2019-05-07] MEDS: FOLIC ACID 1 MG TABLET PO SCH (08:00)
[2019-05-07] MEDS: OXYBUTYNIN CHLORIDE 5 MG TABLET PO SCH ×2 (08:00→16:37)
[2019-05-07] MEDS: GABAPENTIN 100 MG CAPSULE PO SCH ×3 (08:01→16:38)
[2019-05-07] MEDS: FLUOXETINE HCL 20 MG CAPSULE PO SCH (08:01)
[2019-05-07] MEDS: MIDODRINE HCL (5MG) 5 MG TABLET PO SCH ×3 (08:01→16:38)
--- NOTE | 2019-05-07 09:30 | NUR ---
ORE SAMPLER NOTES NOTIFIED ERASTO POLK THAT THERE IS NO LABS ORDERED FOR TODAY , PER PRODUCT SUPPORT CONSULTANT ORDER CBC , BMP MAG , PHOS , ORDERS CARRIED OUT
[2019-05-07] MEDS: NOREPINEPHRINE 16 MG in IV D5W 500 ML IV PRN ×2 (09:35→17:36)
[2019-05-07 10:22] LABS: BASOPHILS % (AUTO) 0.1 % (0.0-2.0); HEMATOCRIT 24 % (33-45); LYMPHOCYTES # (AUTO) 1.4 /CMM (0.8-4.8); LYMPHOCYTES % (AUTO) 20.8 % (20.0-44.0); MEAN CORPUSCULAR HGB CONC 33 g/dl (31.0-36.0); MEAN CORPUSCULAR VOLUME 116 fL (82-100); MONOCYTES # (AUTO) 0.2 /CMM (0.1-1.30); MONOCYTES % (AUTO) 3.3 % (2.0-12.0); NEUTROPHILS # (AUTO) 5.1 /CMM (1.8-8.9); NEUTROPHILS % (AUTO) 75.8 % (43.0-81.0); PLATELET COUNT (AUTO) 79 /CMM (150-450); WHITE BLOOD COUNT (AUTO) 6.8 K/uL (4.3-11.0)
--- NOTE | 2019-05-07 10:23 | NUR ---
FITNESS STUDIES TEACHER NOTES STABLE POST HD , 1400ML OUT , ON LEVOPHED @ 20MCG/MIN , BP 79/60 HR 93 ,WILL CONTINUE TO MONITOR
[2019-05-07 10:27] LABS: CALCIUM, SERUM 8.1 mg/dL (8.5-10.1); CREATININE 3.3 mg/dL (0.6-1.3)
[2019-05-07 10:29] LABS: POTASSIUM 2.6 mmol/L (3.5-5.1)
[2019-05-07 10:31] LABS: MAGNESIUM 1.6 mg/dL (1.8-2.4); PHOSPHORUS 2.1 mg/dL (2.5-4.9)
--- NOTE | 2019-05-07 10:36 | NUR ---
PHYSICAL SECURITY SPECIALIST NOTES SEEN AND EVALUATED BY ERASTO POLK DYE HOUSE VAT WORKER , DISCUSSED LABS , S/P 4UNITS FFP , CRITICAL K OF 2.6 , S/P HD 1400ML , ON LEVOPHED @ 20MCG/MIN , PT IS AWAKE ABLE TO FOLLOW SIMPLE COMMANDS , AFEBRILE , NO ACTIVE BLEEDING NOTED , DYE HOUSE VAT WORKER AWARE , PER DYE HOUSE VAT WORKER ORDER AM LABS WITH INR , REPLACE POTASSIUM WITH 2O MEQ KCL IV , ORDERS CARRIED OUT
[2019-05-07] MEDS: PANTOPRAZOLE 40 MG VIAL IV SCH ×2 (10:39→16:43)
[2019-05-07] MEDS: HYDROCORTISONE SOD SUCCINATE 100 MG/2 ML VIAL IV SCH ×3 (10:39→16:43)
[2019-05-07] MEDS: POTASSIUM CL. PREMIX PERIPHER. 50 ML IV SCH ×2 (10:50→11:55)
--- NOTE | 2019-05-07 11:08 | NUR ---
SPOOLING OPERATOR NOTES SEEN AND EVALUATED BY DR DANIEL , DISCUSSED LABS , NO ACTIVE BLEEDING NOTED , MULTIPLE BRUISES SHOWED TO MD , ON LEVO @ 20MCG/MIN TO KEEP MAP 55 ABOVE , AWAKE ABLE TO FOLLOW SIMPLE COMMANDS , PENDING FIBRINOGEN RESULTS , MD AWARE
[2019-05-07] MEDS ORDERED: VANCOMYCIN 1 GM in IV D5W 250 ML IV ONE (12:00)
[2019-05-07 13:07] LABS: D-DIMER 0.2 mg/L(FEU (0.17-0.50)
--- NOTE | 2019-05-07 13:30 | NUR ---
RESOURCE ECONOMIST NOTES NOTIFIED DR DANIEL REGARDING DIC PANEL RESULT , ORDERED 4 UNITS FFP , ORDER CARRIED OUT
--- NOTE | 2019-05-07 17:30 | NUR ---
CASTING WHEEL OPERATOR NOTES CALLED BLOOD BANK , SPOKE WITH HARRISON NOTIFIED THAT SECOND BAG OF FFP NEEDS TO BE THAWED , THE 1ST BAG OF FFP IS GIVEN , PER HARRISON CALL AROUND [phone]
--- NOTE | 2019-05-07 19:14 | NUR ---
RIM TURNING FINISHER NOTES CALLED BLOOD BANK TO THAW FFP , PER LAB BUSINESS SYSTEM CONSULTANT FFB AROUND [phone]
[2019-05-07] MEDS: MEROPENEM 500 MG in IV NS 0.9% 50 ML IV SCH (20:42)
--- NOTE | 2019-05-07 21:47 | NUR ---
2135 Nursing note Third unIt FFPin progress, as ordered.
--- NOTE | 2019-05-07 21:49 | NUR ---
Nursingnote: Pt has nos.s of transfusion reaction.Vital sign is stable. Levophedat 14mcg/min.
[2019-05-07] MEDS: MICAFUNGIN SODIUM 100 MG in IV NS 0.9% 100 ML IV SCH (22:22)
--- NOTE | 2019-05-07 22:27 | NUR ---
Nursing Note: Pt is received in bed. Unresponsive to command and is unable to0 move all extremities. Resp is unlabored. Right upper extrmities bruise noted. B/l upper and lower extremities. HOB 30 Levophed is infusing at 14mcg/min by the MICHAEL PICC LINE, MICHAEL wrapped iwith kerlex. pt repositioned Elevate extremities.
--- NOTE | 2019-05-07 23:22 | NUR ---
Nursing note:Third unit FFP completed. No transfusion reaction noted.
[2019-05-08] VITALS (95 sets, daily range): BP systolic 76–132; BP diastolic 49–87
--- NOTE | 2019-05-08 00:32 | NUR ---
Nursing note: Last unit of ffpisin progress. Pt is afebrile. Breath sounds clear. Noshortnessof breath is noted. Edema of the extremities noted. VS is WNL on Levophed 14 mcg/min.
--- NOTE | 2019-05-08 04:30 | NUR ---
pT TOLERATED CRYO. AFEBRILE.
--- NOTE | 2019-05-08 05:00 | NUR ---
fIRST BAG OFCRYO INFUSING ORDERED. PT IS AFEBRILE. BREATH SOUNDS ARE CLEAR .
--- NOTE | 2019-05-08 05:10 | NUR ---
DRESSING CHANR ARM BRUISED. LARGE CLOT COVERED WITH VAZELENE GAUZE.MODERATE AMOUNT OF SEROSANG DRAINAGE NOTED. EXTREMITY WRAPPED WITH KERLEX. PT TOLERATED TREATMENT.
[2019-05-08] MEDS ORDERED: VANCOMYCIN 500 MG in IV D5W 100 ML IV PRN (06:00)
--- NOTE | 2019-05-08 07:00 | NUR ---
COMMUNITY HEALTH ADVOCATE NOTES PATIENT NOTED WITH PERSISTENT LOOSE/WATERY STOOL. PATIENT ALSO WITH LARGE SACRAL WOUND, RECTAL TUBE PLACED FOR SKIN PROTECTION. THIEN SALEEM NP NOTIFIED
--- NOTE | 2019-05-08 07:30 | NUR ---
RN NOTE: Received patient in bed lethargic, but able to spontaneously open her eyes with tactile stimuli. HOB elevated. NPO status due to current medical condition. Bed alarmed and locked at all times. (R) UA PICC line noted in placed with Levophed @14mcg/min and D5NS @50ml/hr. (R) chestwall HD catheter in placed with transparent dressing. Per security threat analyst NABEEL Rehman the patient was due for another Cryoprecipitate 5units and a flexiseal was placed by security threat analyst nurse due to the loose stool from overnight. Afebrile. Skin warm to touch. Skin was noted with multiple petechiae in different parts of the patient's body. And per endorsement from security threat analyst nurseSherie the blood draw for this morning was not drawn yet due to the pending cryoprecipitate infusion of the 2nd bag. Needs anticipated. No gross bleeding noted at this time.
--- NOTE | 2019-05-08 07:40 | NUR ---
WOUND CARE CONSULT: PT UNSTABLE FOR SKIN ASSESSMENT AT THIS TIME PER RN. REVIEWED PHOTOS AND NURSING DOCUMENTATION. PT PRESENTS WITH RT ARM OPEN SKIN TEAR WITH MULTIPLE AREAS OF SKIN DISCOLORATION. RECOMMENDATIONS MADE FOR WOUND CARE AND SKIN PROTECTION BASED ON NURSING DOCUMENTATION AND PHOTOS. PT HAS DEEP TISSUE INJURY TO SACRUM (PRESENT ON ADMISSION) WHICH IS NOW IN EVOLUTION. RECOMMENDATIONS MADE FOR WOUND CARE BASED ON PHOTO DOCUMENTATION. PT ON NINO ISOFLEX LOW AIRLOSS BED. MULTIPLE CO-MORBIDITIES NOTED INCLUDING SEPSIS, POSSIBLE DIC, END STAGE RENAL FAILURE. WILL SEE PRN. IN AGREEMENT WITH PLAN OF CARE.
[2019-05-08] MEDS: NEPRO VAN 237 ML CAN PO SCH ×2 (08:00→17:00)
[2019-05-08 08:13] LABS: IMMUNOGLOBULIN A, SERUM 385 mg/dL (87-352); IMMUNOGLOBULIN G, SERUM 820 mg/dL (700-1600); IMMUNOGLOBULIN M, SERUM 45 mg/dL (26-217)
[2019-05-08 08:13] LABS: *BASOS 0 % (Not Estab.); *EOS 0 % (Not Estab.); *HCT 34.1 % (34.0-46.6); *HGB 10.7 g/dL (11.1-15.9); *IMMATURE GRANULOCYTES 0 % (Not Estab.); *LYMPHOCYTES 16 % (Not Estab.); *LYMPHS, ABSOLUTE 1.8 x10E3/uL (0.7-3.1); *MCH 36.5 pg (26.6-33.0); *MCHC 31.4 g/dL (31.5-35.7); *MCV 116 fL (79-97); *MONOCYTES 3 % (Not Estab.); *MONOS, ABSOLUTE 0.3 x10E3/uL (0.1-0.9); *NEUTROPHILS 81 % (Not Estab.); *NEUTROPHILS, ABSOLUTE 9.1 x10E3/uL (1.4-7.0); *PLT 120 x10E3/uL (150-450); *RBC 2.93 x10E6/uL (3.77-5.28)
[2019-05-08] MEDS: ASPIRIN EC 81 MG TABLET.DR PO SCH (09:00)
[2019-05-08] MEDS: OXYBUTYNIN CHLORIDE 5 MG TABLET PO SCH ×2 (09:00→17:00)
[2019-05-08] MEDS: DOCUSATE SODIUM 250 MG CAPSULE PO SCH ×2 (09:00→17:00)
[2019-05-08] MEDS: POLYETHYLENE GLYCOL 3350 17 GM POWD.PACK PO SCH (09:00)
[2019-05-08] MEDS: MIDODRINE HCL (5MG) 5 MG TABLET PO SCH ×3 (09:00→18:00)
[2019-05-08] MEDS: APIXABAN 5 MG TABLET PO SCH ×2 (09:00→17:00)
[2019-05-08] MEDS: FOLIC ACID 1 MG TABLET PO SCH (09:00)
[2019-05-08] MEDS: FLUOXETINE HCL 20 MG CAPSULE PO SCH (09:00)
[2019-05-08] MEDS: GABAPENTIN 100 MG CAPSULE PO SCH ×3 (09:00→17:00)
[2019-05-08] MEDS: PANTOPRAZOLE 40 MG VIAL IV SCH ×2 (09:46→17:09)
[2019-05-08] MEDS: HYDROCORTISONE SOD SUCCINATE 100 MG/2 ML VIAL IV SCH ×3 (09:55→17:09)
--- NOTE | 2019-05-08 10:13 | NUR ---
MEDICAL RECORDS AUDITOR contacted pt's sister Marzena since pt's mother Nataly's contact number is incorrect in the chart. Pt's mom Nataly's correct number is . MEDICAL RECORDS AUDITOR contacted pt's mother Nataly and left her a voicemail message requesting a call back regarding scheduling a family meeting with Dr. Ricketts to discuss plan of care.
[2019-05-08] MEDS ORDERED: POTASSIUM CHLORIDE 10 MEQ/50 ML PREMIXED IVPB FOR PERIPHERAL LINE IV ONE ×2 (10:30→14:30)
--- NOTE | 2019-05-08 11:39 | NUR ---
JAYRO received a call back from pt's mother Nataly informing HELPER ELECTRICAL she is available for a phone conference. HELPER ELECTRICAL informed Dr. Ricketts who called the pt's mother to discuss plan of care. Dr. Ricketts, discussed hospice care with pt's mother who is in agreement. HELPER ELECTRICAL witnessed pt's mother Nataly agreeing to hospice care.
[2019-05-08 12:10] LABS: *% CD 4 POS. LYMPH 45.8 % (30.8-58.5); *ABSOLUTE CD 4 HELPER 824 /uL (359-1519); *ABSOLUTE CD 8 SUPPRESSOR 630 /uL (109-897); *CD4/CD8 RATIO 1.31 (0.92-3.72)
[2019-05-08] MEDS: NOREPINEPHRINE 16 MG in IV D5W 500 ML IV PRN (12:32)
[2019-05-08 12:52] LABS: BASOPHILS % (AUTO) 0.1 % (0.0-2.0); EOSINOPHILS % (AUTO) 0.1 % (0.0-6.0); HEMATOCRIT 21 % (33-45); LYMPHOCYTES # (AUTO) 0.9 /CMM (0.8-4.8); LYMPHOCYTES % (AUTO) 14.9 % (20.0-44.0); MEAN CORPUSCULAR HGB CONC 32 g/dl (31.0-36.0); MEAN CORPUSCULAR VOLUME 118 fL (82-100); MONOCYTES # (AUTO) 0.2 /CMM (0.1-1.30); MONOCYTES % (AUTO) 2.6 % (2.0-12.0); NEUTROPHILS # (AUTO) 4.9 /CMM (1.8-8.9); NEUTROPHILS % (AUTO) 82.3 % (43.0-81.0); PLATELET COUNT (AUTO) 61 /CMM (150-450)
[2019-05-08 12:55] LABS: RED BLOOD CELL COUNT(AUTO) 1.81 MIL/uL (4.0-5.2)
[2019-05-08 13:02] LABS: HEMOGLOBIN 6.7 g/dL (11.5-14.8)
--- NOTE | 2019-05-08 13:08 | NUR ---
RN NOTE: Reported to Sandeep Ricketts DNP regarding the hgb 6.7/hct 21 and per Sandeep Ricketts DNP give 1 unit PRBC. Order, noted and carried out.
[2019-05-08 13:16] LABS: LYMPHOCYTES % (MANUAL) 11 % (16-48); MONOCYTES % (MANUAL) 4 % (0-11.0); NEUTROPHILS % (MANUAL) 85 (42-76)
[2019-05-08 13:25] LABS: D-DIMER 0.21 mg/L(FEU (0.17-0.50)
[2019-05-08 13:41] LABS: CALCIUM, SERUM 8.8 mg/dL (8.5-10.1); CREATININE 2.6 mg/dL (0.6-1.3); MAGNESIUM 1.5 mg/dL (1.8-2.4); PHOSPHORUS 2.1 mg/dL (2.5-4.9)
[2019-05-08 13:43] LABS: POTASSIUM 2.2 mmol/L (3.5-5.1)
[2019-05-08] MEDS: IV D5/ 0.9% NACL 1,000 ML IV PRN (14:52)
[2019-05-08] MEDS: POTASSIUM CL. PREMIX PERIPHER. 50 ML IV SCH ×4 (15:35→19:58)
--- NOTE | 2019-05-08 16:24 | NUR ---
RN NOTE: Called and spoke with SYED Henry regarding the hospice evaluation for the patient. As per CM, the patient's family has not sign up yet for hospice. Hospice evaluation still pending at this time.
--- NOTE | 2019-05-08 17:00 | NUR ---
RN NOTE: [facility] nurse Bhupinder came and answered pertinent information regarding the patient's condition. Patient's chart was handed to him for review and according to him, he was still waiting for the patient's mother to make a decision and sign up for the hospice care. Hospice staff will be in touch with the foster care case manager regarding this matter.
--- NOTE | 2019-05-08 19:40 | NUR ---
SUBMARINE OPERATOR NOTES, RECEIVED PATIENT ASLEEP AT THIS TIME, LETHARGIC , NO SOB/NO RESPIRATORY DISTRESS NOTED ON 1LPM NC WITH OPTIMAL O2 SAT LEVEL, SR 70S ON BEDSIDE MONITOR , MICHAEL PICC LINE WITH D5NS @ 50ML/HR INFUSING WELL AND LEVOPHED @ 8MCG/MIN INFUSING WELL TO KEEP MAP ABOVE 55MMHG, RIGHT CHEST WALL HD CATH IN PLACED, S/P ONE UNIT OF PRBC, ALL NEEDS ATTENDED, BED LOCKED AND IN LOW POSITION, SIDE RAILS X2, CALL LIGHT WITHIN REACH , HOB AT ALL TIMES, , WILL CONTINUE TO MONITOR CLOSELY.
--- NOTE | 2019-05-08 19:49 | NUR ---
RN NOTE: Bedside report was given to NABEEL Caldera for continuity of care. Patient was given 1 unit of PRBC per Dr. Sandeep Ricketts's order. Remained on Levophed 8mcg/min and BP has been maintained with MAP >55.
[2019-05-08] MEDS: MEROPENEM 500 MG in IV NS 0.9% 50 ML IV SCH (20:17)
[2019-05-08] MEDS: MICAFUNGIN SODIUM 100 MG in IV NS 0.9% 100 ML IV SCH (21:48)
[2019-05-09] VITALS (63 sets, daily range): BP systolic 72–127; BP diastolic 46–76
--- NOTE | 2019-05-09 06:57 | NUR ---
THREAD MARKER NOTES, NO SOB/NO RESPIRATORY DISTRESS NOTED NO SIGNIFICANT CHANGE IN CONDITION DURING THE NIGHT, CONTINUE ON LEVOPHED @ 8MCG/MIN INFUSING WELL TO KEEP MAP ABOVE 55MMHG, WOUND TREATMENT PROVIDED ORDERED, ALL NEEDS ATTENDED, BED LOCKED AND IN LOW POSITION, SIDE RAILS X2, CALL LIGHT WITHIN REACH , HOB AT ALL TIMES, WILL ENDORSE CONTINUITY OF CARE TO ONCOMING NURSE.
[2019-05-09 06:59] LABS: BASOPHILS % (AUTO) 0.1 % (0.0-2.0); HEMATOCRIT 27 % (33-45); HEMOGLOBIN 8.7 g/dL (11.5-14.8); LYMPHOCYTES # (AUTO) 1.1 /CMM (0.8-4.8); LYMPHOCYTES % (AUTO) 17.7 % (20.0-44.0); MEAN CORPUSCULAR HGB CONC 32 g/dl (31.0-36.0); MEAN CORPUSCULAR VOLUME 113 fL (82-100); MONOCYTES # (AUTO) 0.3 /CMM (0.1-1.30); MONOCYTES % (AUTO) 4.1 % (2.0-12.0); NEUTROPHILS % (AUTO) 78.1 % (43.0-81.0); PLATELET COUNT (AUTO) 56 /CMM (150-450); WHITE BLOOD COUNT (AUTO) 6.5 K/uL (4.3-11.0)
--- NOTE | 2019-05-09 07:10 | NUR ---
BIOLOGY FACULTY MEMBER INITIAL NOTES Rec'd pt on bed, not in any distress, lethargic, opens eyes to painful stimuli. On NC at 1lpm w/ no SOB. SR on telemonitor. Has MICHAEL PICC Line w/ Levophed drip x 8 mcg & D5NS x 50 cc/hr both infusing well. Has RCW HD cath in place, crusted blood noted on the site. Has flexiseal in place draining to liquidy stool. Safety precaution in place w/ bed in lowest & locked pos. Call light w/in reach. Will cont to monitor & attend pt needs.
[2019-05-09 07:11] LABS: CALCIUM, SERUM 9.6 mg/dL (8.5-10.1); CREATININE 2.8 mg/dL (0.6-1.3); POTASSIUM 2.9 mmol/L (3.5-5.1)
[2019-05-09 07:27] LABS: D-DIMER 0.2 mg/L(FEU (0.17-0.50)
[2019-05-09] MEDS: NEPRO VAN 237 ML CAN PO SCH (08:00)
--- NOTE | 2019-05-09 08:10 | NUR ---
Dr. Jaramillo updated about pt condition. Pt to transition to hospice care. LACIE Grimaldo aware. Will wait for Hospice Nurse.
[2019-05-09] MEDS: OXYBUTYNIN CHLORIDE 5 MG TABLET PO SCH (08:15)
[2019-05-09] MEDS: DOCUSATE SODIUM 250 MG CAPSULE PO SCH (08:15)
[2019-05-09] MEDS: FOLIC ACID 1 MG TABLET PO SCH (08:15)
[2019-05-09] MEDS: POLYETHYLENE GLYCOL 3350 17 GM POWD.PACK PO SCH (08:15)
[2019-05-09] MEDS: ASPIRIN EC 81 MG TABLET.DR PO SCH (08:15)
[2019-05-09] MEDS: APIXABAN 5 MG TABLET PO SCH (08:15)
[2019-05-09] MEDS: GABAPENTIN 100 MG CAPSULE PO SCH ×2 (08:16→12:04)
[2019-05-09] MEDS: MIDODRINE HCL (5MG) 5 MG TABLET PO SCH ×2 (08:16→12:04)
[2019-05-09] MEDS: FLUOXETINE HCL 20 MG CAPSULE PO SCH (08:16)
[2019-05-09 08:52] LABS: LYMPHOCYTES % (MANUAL) 22 % (16-48); MONOCYTES % (MANUAL) 3 % (0-11.0); NEUTROPHILS % (MANUAL) 75 (42-76)
--- NOTE | 2019-05-09 09:00 | NUR ---
[facility] Hosp[facility] Nurse came and asked pt condition & status. tool room machinist to talk to CM.
[2019-05-09] MEDS: Z GUARD REMEDY 2 OZ OINT TP PRN (09:07)
[2019-05-09] MEDS: HYDROCORTISONE SOD SUCCINATE 100 MG/2 ML VIAL IV SCH ×2 (09:07→12:07)
[2019-05-09] MEDS: PANTOPRAZOLE 40 MG VIAL IV SCH (09:07)
[2019-05-09 13:06] LABS: *SPE A/G RATIO 1.2 (0.7-1.7); *SPE ALBUMIN 2.6 g/dL (2.9-4.4); *SPE ALPHA-1-GLOBULIN 0.2 g/dL (0.0-0.4); *SPE ALPHA-2-GLOBULIN 0.4 g/dL (0.4-1.0); *SPE BETA GLOBULIN 0.8 g/dL (0.7-1.3); *SPE GLOBULIN, TOTAL 2.2 g/dL (2.2-3.9); *SPE M-SPIKE Not Observed g/dL (Not Observed); *SPEGAMMA GLOBULIN 0.8 g/dL (0.4-1.8)
--- NOTE | 2019-05-09 16:20 | NUR ---
ICU DISCHARGE NOTES Pt DC'd back to [facility] as ordered, will transition to hospice care as planned. DC report given to Judy LEES Sup in the facility. Pt remains lethargic. Remains SR on telemonitor. MICHAEL PICC line kept patent & intact. HD cath left in place. Flexiseal removed upon DC. Wound photos taken & placed in the chart. All belongings sent w/ pt. No concern/issues identified during DC. Pt left the unit via gurney accompanied by [facility].
== END 2019-05-09 18:11 | disposition hospice, home (50) | DRG 466 ==
LOC: ER 15:22 → TELE2 20:04 → TELE 20:11 → MED 04-23 09:30 → ICU 04-24 03:33
PROVIDERS: ATTEND Nurse Practitioner Acute Care
PROC: 5A1D70Z Performance of Urinary Filtration, Intermittent, Less than 6 Hours Per Day (ICD-10-PCS; principal; 2019-04-24)
PROC: 02HV33Z Insertion of Infusion Device into Superior Vena Cava, Percutaneous Approach (ICD-10-PCS; principal; 2019-04-24)
PROC: B548ZZA Ultrasonography of Superior Vena Cava, Guidance (ICD-10-PCS; principal; 2019-04-24)
PROC: 0JHD3XZ Insertion of Tunneled Vascular Access Device into Right Upper Arm Subcutaneous Tissue and Fascia, Percutaneous Approach (ICD-10-PCS; 2019-04-29)
PROC: 05HM33Z Insertion of Infusion Device into Right Internal Jugular Vein, Percutaneous Approach (ICD-10-PCS; 2019-04-29)
PROC: B543ZZA Ultrasonography of Right Jugular Veins, Guidance (ICD-10-PCS; 2019-04-29)
PROC: 30233K1 Transfusion of Nonautologous Frozen Plasma into Peripheral Vein, Percutaneous Approach (ICD-10-PCS; 2019-05-06)
PROC: 30233M1 Transfusion of Nonautologous Plasma Cryoprecipitate into Peripheral Vein, Percutaneous Approach (ICD-10-PCS; 2019-05-07)
PROC: 30233N1 Transfusion of Nonautologous Red Blood Cells into Peripheral Vein, Percutaneous Approach (ICD-10-PCS; 2019-05-07)
DX: T82.41XA Breakdown (mechanical) of vascular dialysis catheter, initial encounter (principal); I12.0 Hypertensive chronic kidney disease with stage 5 chronic kidney disease or end stage renal disease; R65.21 Severe sepsis with septic shock; D65 Disseminated intravascular coagulation [defibrination syndrome]; A41.9 Sepsis, unspecified organism; G93.41 Metabolic encephalopathy; E44.0 Moderate protein-calorie malnutrition; D61.818 Other pancytopenia; N18.6 End stage renal disease; Z99.2 Dependence on renal dialysis; Y92.9 Unspecified place or not applicable; I25.10 Atherosclerotic heart disease of native coronary artery without angina pectoris; Z79.82 Long term (current) use of aspirin; Z79.51 Long term (current) use of inhaled steroids; Z79.899 Other long term (current) drug therapy; K21.9 Gastro-esophageal reflux disease without esophagitis; Z86.718 Personal history of other venous thrombosis and embolism; Z87.440 Personal history of urinary (tract) infections; Z66 Do not resuscitate; Z51.5 Encounter for palliative care; Y71.2 Prosthetic and other implants, materials and accessory cardiovascular devices associated with adverse incidents; N39.0 Urinary tract infection, site not specified; F41.9 Anxiety disorder, unspecified; F32.9 Major depressive disorder, single episode, unspecified; E87.6 Hypokalemia; E87.1 Hypo-osmolality and hyponatremia; E83.42 Hypomagnesemia; E27.40 Unspecified adrenocortical insufficiency; E11.22 Type 2 diabetes mellitus with diabetic chronic kidney disease; D68.59 Other primary thrombophilia; D63.1 Anemia in chronic kidney disease; D53.9 Nutritional anemia, unspecified; N25.0 Renal osteodystrophy
CPT/HCPCS: 36415; 36600; 71045-TC; 80048-TC; 80053-TC; 80061-TC; 80076-TC; 80202-TC; 81000-TC; 82533; 82728-TC; 82784; 82803-TC; 82962-TC; 83540-TC; 83605-TC; 83735-TC; 83880; 84100-TC; 84155; 84165; 84443-TC; 84484-TC; 85025-TC; 85396; 85610-TC; 85730-TC; 86334; 86360; 86850-TC; 86921-TC; 87040-TC; 87081-TC; 87086-TC; 87186-TC; 90935-TC; 93307-TC; 93970-TC; 94799-TC; 97112-TC; 97530-TC; A4216; A6253; A6403; C1750; C1751; C9113; G0378; J0690; J0692; J1644; J1720; J2185; J2248; J2370; J2405; J2704; J2997; J3010; J3370; J3475; J3480; J3490; J7030; J7040; J7042; J7050; J7060; P9012; P9016-BL; P9017-BL; P9047; Q9966